=== PATIENT | female | born 1995 | race Caucasian/White ===

== ENCOUNTER 2016-10-21 07:08 | Emergency (ER) | payer OTHER ==
[2016-10-21 07:22] VITALS: PULSE 94; O2SAT 96
[2016-10-21] MEDS ORDERED: MOTRIN 600 MG PO ONE (07:36)
[2016-10-21] MEDS ORDERED: MOTRIN 600 MG ONE (07:39)
--- NOTE | 2016-10-21 07:41 | ERPHSYRPT ---
- History of Present Illness Time Seen by Provider: 10/21/16 07:25 Source: patient Patient Subjective Stated Complaint: lt neck pain since 0230 Triage Nursing Assessment: states woke up with lt neck pain radaiting down lt arm to fingers. states pain worse with movmeent of neck--worse with movement to rt. cap refill <3 sec. radial pulse present bilat. no bruising or swelling to lt neck or shoulder. pain with palpation to lt neck. denies injury. 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 She is not sure when or why it started. No specific inciting injury. Took APAP. Pain is worse with moving arm or neck or breathing. No hx of this in the past. Pain is severe. No chest pain. States not as she takes mirena IUD. Occurred: this morning (1AM) Extremities Pain Location: shoulder: left Allergies/Adverse Reactions: diphenhydramine HCl [From Benadryl] Adverse Reaction (Mild, Verified 10/21/16 07 :22) "I FEEL LIKE I AM ON CRACK" doxycycline Adverse Reaction (Mild, Verified 10/21/16 07:22) Nausea promethazine HCl [From Phenergan] Adverse Reaction (Mild, Verified 10/21/16 07: 22) "I FEEL LIKE I AM ON CRACK" Home Medications: No Home Meds 1 ea UD 10/21/16 [History] Hx Tetanus, Diphtheria Vaccination/Date Given: Yes Hx Influenza Vaccination/Date Given: No Hx Pneumococcal Vaccination/Date Given: No Immunizations Up to Date: Yes - Review of Systems Constitutional: No Symptoms Respiratory: No Dyspnea Cardiac: No Chest Pain Abdominal/Gastrointestinal: No Abdominal Pain Musculoskeletal: Joint Pain (left arm), No Back Pain, No Neck Pain Neurological: Parasthesia (left arm), No Focal Weakness, No Headache - Past Medical History Pertinent Past Medical History: Yes Neurological History: Migraines ENT History: No Pertinent History Cardiac History: No Pertinent History Respiratory History: No Pertinent History Endocrine Medical History: No Pertinent History Musculoskeletal History: No Pertinent History GI Medical History: No Pertinent History, Other History: No Pertinent History Psycho-Social History: Depression Female Reproductive Disorders: Endometriosis, Other Other Medical History: 1 (NO COMPLICATIONS). Endometriosis. PCO - Past Surgical History Past Surgical History: Yes Neuro Surgical History: No Pertinent History Cardiac: No Pertinent History Respiratory: No Pertinent History Gastrointestinal: No Pertinent History Genitourinary: No Pertinent History Musculoskeletal: No Pertinent History Female Surgical History: Other Other Surgical History: D&C, LAP-endomet - Social History Smoking Status: Current every day smoker How long have you smoked: 7 years Exposure to second hand smoke: No Drug Use: none Patient Lives Alone: No Significant Family History: no pertinent family hx - Female History Hx Now: Yes (Depo Provera) - Nursing Vital Signs Nursing Vital Signs: Initial Vital Signs Temperature 97.5 F Temperature Source Oral Pulse Rate 94 Respiratory Rate 18 Blood Pressure 103/63 Pain Intensity 7 - Physical Exam General Appearance: alert Eyes, Ears, Nose, Throat Exam: normal ENT inspection, moist mucous membranes Neck Exam: non-tender, supple, No tenderness midline Cardiovascular/Respiratory Exam: normal breath sounds, regular rate/rhythm Back Exam: normal inspection, No vertebral tenderness Shoulder Exam: bone tenderness, limited ROM, soft tissue tenderness Elbow/Forearm Exam: normal inspection, non-tender, no evidence of injury Wrist Exam: normal inspection, non-tender, no evidence of injury Hand Exam: normal inspection, non-tender, no evidence of injury Neuro/Tendon Exam: normal sensation, normal motor functions Mental Status Exam: alert, oriented x 3, cooperative Skin Exam: warm, dry, No rash SpO2 Interpretation: normal SpO2: 96 Oxygen Delivery: Room Air Comments: good left radial pulse - Radiology Exams left shoulder X-ray Interpretation: Reviewed by me, Negative Ordered Tests: Active Orders 24 hr Category Date Time Status Cold Application STAT Care 10/21/16 07:36 Active Sling Application STAT Care 10/21/16 07:36 Active SHOULDER Stat Exams 10/21/16 07:37 Taken Medication Summary Discontinued Medications Generic Name Dose Route Start Last Admin Trade Name Huseyinq PRN Reason Stop Dose Admin Ibuprofen 600 mg 10/21/16 07:36 10/21/16 07:40 Motrin 600 Mg PO 10/21/16 07:37 600 mg STAT ONE Administration Ibuprofen Confirm 10/21/16 07:39 Motrin 600 Mg Administered 10/21/16 07:40 Dose 600 mg .ROUTE .STK-MED ONE - Progress Progress Note: 10/21/16 08:20 Pt states not workers comp injury. She will follow up with Dr Gtz. Sldesiree, norbette, motrin advised. Counseled pt/family regarding: diagnosis, need for follow-up, rad results - Departure Time of Disposition: 08:21 Departure Disposition: Home Clinical Impression: Left shoulder strain Qualifiers: Encounter type: initial encounter Qualified Code(s): S46.912A - Strain of unspecified muscle, fascia and tendon at shoulder and upper arm level, left arm , initial encounter Condition: Stable Critical Care Time: No Referrals: KENYON GTZ [Primary Care Provider] - Instructions: Shoulder Sprain Additional Instructions: SPRAINS/STRAINS/CONTUSIONS 1. Rest the affected area as much as possible for the next few days. 2. Apply ice to the affected area for 20-30 minutes at a time, several times a day. 3. If you receive an elastic wrap, wear it only while awake for comfort and support. Re-wrap the elastic wrap if it feels too tight or too loose. 4. If swelling is present, elevate the affected part above the level of the heart for at least 2 to 3 days. 5. Use splints, slings, or crutches as instructed. 6. Watch for severe swelling, coldness, numbness, and discoloration of the fingers and toes. See your family physician or return to the emergency department if any of these are noted. Rx motrin for pain. Rx norflex for muscle relaxer- no driving while taking. Follow up with Dr Gtz. Precious for 1-2 days for comfort. Prescriptions: Ibuprofen 1 tab PO Q6H PRN PRN #20 tablet PRN Reason: pain Orphenadrine Citrate 100 mg [Norflex 100 MG Tablet] 1 tab PO BID #10 tab
[2016-10-21 08:32] VITALS: BP 109/67
--- NOTE | 2016-10-21 09:27 | XRAY ---
Indication: Pain following lifting. Comparison: None 3 views of the left shoulder obtained. No bony, articular, or soft tissue abnormalities.
== END 2016-10-21 08:30 | disposition home or self-care (01) ==
LOC: ED 07:08
DX: S46.912A Strain of unspecified muscle, fascia and tendon at shoulder and upper arm level, left arm, initial encounter (principal)
CPT/HCPCS: 73030; 99283

== ENCOUNTER 2017-01-21 15:17 | Emergency (ER) | payer OTHER ==
[2017-01-21] MEDS ORDERED: Vistaril 50 MG/ML IM ONE ×2 (15:20→15:40)
[2017-01-21] MEDS ORDERED: Lactated Ringers 1,000 ML IV ONE ×2 (15:21→15:40)
[2017-01-21] MEDS ORDERED: Zyprexa Zydis 5 MG PO ONE ×2 (15:22→15:40)
[2017-01-21 16:05] LABS: VBG BASE EXCESS 2.6 (-2.0-2.0); VBG HEMOGLOBIN 16.8; VBG O2 SATURATION 42.8 (95-100); VBG pH 7.5 (7.32-7.42)
[2017-01-21 16:06] LABS: VBG CARBOXYHEMOGLOBIN 7.1 % T HGB (0.0-6.9)
[2017-01-21 16:09] LABS: BASOPHIL % 0.2 % (0.0-0.4); Eosinophil % 2.1 % (0.00-5.0); Granulocytes % 69.6 % (36.0-66.0); Lymphocytes % 21.1 % (24.0-44.0); Mean Cell Volume 94.4 fl (78-100); Mean Platelet Volume 11.8 fl (6-9.5); Platelet Count 183 K/mm3 (150-450); Red Blood Count 5.21 M/mm3 (4.1-5.4); White Blood Count 10.5 K/mm3 (4.0-10.5)
[2017-01-21 16:16] LABS: Mean Corpuscular Hemoglobin 31.6 pg (26-32)
[2017-01-21 16:17] LABS: COMPLETE URINE MICROSCOPIC? NO; Collection Type CCMS
[2017-01-21 16:31] LABS: ALBUMIN 3.6 g/dL (3.4-5.0); ALKALINE PHOSPHATASE 88 U/L (46-116); ANION GAP 15.4 MEQ/L (5-15); BILIRUBIN,TOTAL 0.5 mg/dL (0.2-1.0); BLOOD UREA NITROGEN 11 mg/dL (9-20); CHLORIDE 107 mEq/L (98-107); Carbon Dioxide 24.8 mEq/L (21-32); Glucose 117 MG/DL (70-110); Potassium 3.8 mEq/L (3.5-5.1); SGOT/AST 13 U/L (15-37); SGPT/ALT 13 U/L (12-78); SODIUM 143 mEq/L (136-145); Total Protein 6.4 gm/dL (6.4-8.2)
[2017-01-21 16:57] VITALS: BP 117/50; PULSE 74
[2017-01-21 17:02] VITALS: O2SAT 100
--- NOTE | 2017-01-21 17:02 | ERPHSYRPT ---
- History of Present Illness Time Seen by Provider: 01/21/17 15:20 Source: patient Patient Subjective Stated Complaint: PT GAVE PLASMA ABOUT AND HOUR AGO AND NOW CO PAIN AND SPASMS TO BOTH HANDS, VOMITED ON CAR RIDE HERE .PT STATES IS SUDDEN ONSET Triage Nursing Assessment: PT ALERT, HYPERVENTILATING,, ENCOURAGED TO SLOW DEEP BREATHES, SKIN W/D PINK, PTS HANDS HAS SPASMS. Physician History: CC: hands and feet spasms HX: 21 y/[address] patient of Dr Gtz donated plasma today, went to [place] for tongue piercing, and on the way home had spasms of the hands and feet. [place] scared. Unable to slow breathing. No headache. No rash. No vomiting. Came to ER. No hx of this in the past. Smoked marijuana this AM. Takes pristiq. No chest pain. Timing/Duration: today Severity: severe Allergies/Adverse Reactions: diphenhydramine HCl [From Benadryl] Adverse Reaction (Mild, Verified 01/21/17 15 :25) "I FEEL LIKE I AM ON CRACK" doxycycline Adverse Reaction (Mild, Verified 01/21/17 15:25) Nausea promethazine HCl [From Phenergan] Adverse Reaction (Mild, Verified 01/21/17 15: 25) "I FEEL LIKE I AM ON CRACK" Home Medications: Desvenlafaxine Succinate [Pristiq] 50 mg DAILY 01/21/17 [History] Hx Tetanus, Diphtheria Vaccination/Date Given: Yes Hx Influenza Vaccination/Date Given: No Hx Pneumococcal Vaccination/Date Given: No Immunizations Up to Date: Yes - Review of Systems Constitutional: No Fever, No Chills Eyes: No Symptoms Ears, Nose, & Throat: No Symptoms Respiratory: No Cough Cardiac: No Chest Pain Abdominal/Gastrointestinal: No Abdominal Pain, No Nausea, No Vomiting, No Diarrhea Skin: No Rash Neurological: Parasthesia (both hands and feet), No Focal Weakness, No Headache All Other Systems: Reviewed and Negative - Past Medical History Pertinent Past Medical History: Yes Neurological History: Migraines ENT History: No Pertinent History Cardiac History: No Pertinent History Respiratory History: No Pertinent History Endocrine Medical History: No Pertinent History Musculoskeletal History: No Pertinent History GI Medical History: No Pertinent History, Other History: No Pertinent History Psycho-Social History: Depression Female Reproductive Disorders: Endometriosis, Other Other Medical History: 1 (NO COMPLICATIONS). Endometriosis. PCO - Past Surgical History Past Surgical History: Yes Neuro Surgical History: No Pertinent History Cardiac: No Pertinent History Respiratory: No Pertinent History Gastrointestinal: No Pertinent History Genitourinary: No Pertinent History Musculoskeletal: No Pertinent History Female Surgical History: Other Other Surgical History: D&C, LAP-endomet - Social History Smoking Status: Current every day smoker How long have you smoked: 7 years Exposure to second hand smoke: Yes Drug Use: none Patient Lives Alone: No Significant Family History: no pertinent family hx - Female History Hx Last Menstrual Period: UNKNOWN Hx Now: Yes (Depo Provera) - Nursing Vital Signs Nursing Vital Signs: Initial Vital Signs Temperature 97 F Temperature Source Oral Pulse Rate 67 Respiratory Rate 18 Blood Pressure [Right Arm] 118/77 Pain Intensity 2 - Physical Exam General Appearance: alert Eye Exam: PERRL/EOMI Ears, Nose, Throat Exam: normal ENT inspection, moist mucous membranes Neck Exam: normal inspection, non-tender, supple Respiratory Exam: normal breath sounds, lungs clear, other (hyperventilating) Cardiovascular Exam: regular rate/rhythm, tachycardia (initially) Gastrointestinal/Abdomen Exam: soft, No tenderness, No distention Extremity Exam: normal inspection, normal range of motion Neurologic Exam: alert, oriented x 3, cooperative, sensation nml, No motor deficits Skin Exam: warm, dry SpO2 Interpretation: normal SpO2: 100 Oxygen Delivery: Room Air - Course Nursing assessment & vital signs reviewed: Yes EKG Interpreted by Me: RATE (53), Sinus Terry, NORMAL AXIS, NORMAL INTERVALS ( QTc 391), NORMAL QRS, NORMAL ST-T, Other (unchanged from prior) Ordered Tests: Active Orders 24 hr Category Date Time Status EKG-ER Only STAT Care 01/21/17 15:20 Active IV Insertion STAT Care 01/21/17 15:20 Active Pulse Oximetry (ED) STAT Care 01/21/17 15:20 Active CBC W DIFF Stat Lab 01/21/17 16:00 Completed CMP Stat Lab 01/21/17 16:00 Completed HCG QUALITATIVE,SERUM Stat Lab 01/21/17 16:00 Completed UA Stat Lab 01/21/17 16:15 Completed Urine Triage Profile Stat Lab 01/21/17 15:21 Completed VENOUS BLOOD GAS Urgent Lab 01/21/17 16:00 Completed Medication Summary Discontinued Medications Generic Name Dose Route Start Last Admin Trade Name Freq PRN Reason Stop Dose Admin Hydroxyzine HCl 50 mg 01/21/17 15:20 01/21/17 15:49 Vistaril 50 Mg/Ml IM 01/21/17 15:21 50 mg STAT ONE Administration Hydroxyzine HCl Confirm 01/21/17 15:40 Vistaril 50 Mg/Ml Administered 01/21/17 15:41 Dose 50 mg IM .STK-MED ONE Lactated Ringer's 1,000 mls @ 999 mls/hr 01/21/17 15:21 01/21/17 15:41 Lactated Ringers IV 01/21/17 16:21 999 mls/hr .Q1H1M ONE Administration Lactated Ringer's Confirm 01/21/17 15:40 Lactated Ringers Administered 01/21/17 15:41 Dose 1,000 mls @ ud IV .STK-MED ONE Olanzapine 5 mg 01/21/17 15:22 01/21/17 15:41 Zyprexa Zydis 5 Mg PO 01/21/17 15:23 5 mg STAT ONE Administration Olanzapine Confirm 01/21/17 15:40 Zyprexa Zydis 5 Mg Administered 01/21/17 15:41 Dose 5 mg PO .STK-MED ONE Lab/Rad Data: Laboratory Result Diagrams 01/21/17 16:00 01/21/17 16:00 Laboratory Results 01/21/17 01/21/17 01/21/17 Range/Units 16:15 16:00 16:00 WBC (4.0-10.5) K/mm3 RBC (4.1-5.4) M/mm3 Hgb (12.0-16.0) gm/dl Hct (35-47) % MCV (78-100) fl MCH (26-32) pg MCHC (32-36) g/dl RDW (11.5-14.0) % Plt Count (150-450) K/mm3 MPV (6-9.5) fl Gran % (36.0-66.0) % Lymphocytes % (24.0-44.0) % Monocytes % (0.0-12.0) % Eosinophils % (0.00-5.0) % Basophils % (0.0-0.4) % Basophils # (0-0.4) VBG pH 7.50 H (7.32-7.42) VBG pCO2 at Pat Temp 32 L (42-55) mm/Hg VBG pO2 at Pat Temp 19 L (25-40) mm/Hg VBG HCO3 25.0 (22-28) meq/L VBG O2 Sat ([place]annah) 42.8 L (95-100) VBG Base Excess 2.6 H (-2.0-2.0) VBG Hemoglobin 16.8 VBG Carboxyhemoglobin 7.1 H* (0.0-6.9) % T HGB POC Potassium 4.0 (3.5-5.1) Sodium (136-145) mEq/L Potassium (3.5-5.1) mEq/L Chloride (98-107) mEq/L Carbon Dioxide (21-32) mEq/L Anion Gap (5-15) MEQ/L BUN (9-20) mg/dL Creatinine (0.55-1.30) mg/dl Estimated GFR ML/MIN Glucose (70-110) MG/DL Calcium (8.5-10.1) mg/dL Total Bilirubin (0.2-1.0) mg/dL AST (15-37) U/L ALT (12-78) U/L Alkaline Phosphatase (46-116) U/L Serum Total Protein (6.4-8.2) gm/dL Albumin (3.4-5.0) g/dL Serum , Qual NEGATIVE (Negative) Ur Collection Type CCMS Urine Color YELLOW (YELLOW) Urine Appearance CLEAR (CLEAR) Urine pH 7.0 (5-6) Ur Specific [place] 1.020 (1.005-1.025) Urine Protein NEGATIVE (Negative) Urine Glucose (UA) NEGATIVE (NEGATIVE) mg/dL Urine Ketones NEGATIVE (NEGATIVE) Urine Nitrite NEGATIVE (NEGATIVE) Urine Bilirubin NEGATIVE (NEGATIVE) Urine Urobilinogen 0.2 (0-1) mg/dL Urine WBC (Auto) NEGATIVE (NEGATIVE) Urine RBC (Auto) NEGATIVE (0-5) Sen/ul Urine Opiates Level (NEGATIVE) Ur Methadone (NEGATIVE) Urine Barbiturates (NEGATIVE) Ur Phencyclidine (PCP) (NEGATIVE) Urine Amphetamine (NEGATIVE) U Benzodiazepine Level (NEGATIVE) Urine Cocaine (NEGATIVE) Urine Marijuana (THC) (NEGATIVE) Specimen Received 01-21-17 [id number] 01/21/17 01/21/17 01/21/17 Range/Units 16:00 16:00 15:21 WBC 10.5 (4.0-10.5) K/mm3 RBC 5.21 (4.1-5.4) M/mm3 Hgb 16.5 H (12.0-16.0) gm/dl Hct 49.2 H (35-47) % MCV 94.4 (78-100) fl MCH 31.6 (26-32) pg MCHC 33.5 (32-36) g/dl RDW 13.0 (11.5-14.0) % Plt Count 183 (150-450) K/mm3 MPV 11.8 H (6-9.5) fl Gran % 69.6 H (36.0-66.0) % Lymphocytes % 21.1 L (24.0-44.0) % Monocytes % 7.0 (0.0-12.0) % Eosinophils % 2.1 (0.00-5.0) % Basophils % 0.2 (0.0-0.4) % Basophils # 0.02 (0-0.4) VBG pH (7.32-7.42) VBG pCO2 at Pat Temp (42-55) mm/Hg VBG pO2 at Pat Temp (25-40) mm/Hg VBG HCO3 (22-28) meq/L VBG O2 Sat ([place]annah) (95-100) VBG Base Excess (-2.0-2.0) VBG Hemoglobin VBG Carboxyhemoglobin (0.0-6.9) % T HGB POC Potassium (3.5-5.1) Sodium 143 (136-145) mEq/L Potassium 3.8 (3.5-5.1) mEq/L Chloride 107 (98-107) mEq/L Carbon Dioxide 24.8 (21-32) mEq/L Anion Gap 15.4 H (5-15) MEQ/L BUN 11 (9-20) mg/dL Creatinine 0.94 (0.55-1.30) mg/dl Estimated GFR > 60 ML/MIN Glucose 117 H (70-110) MG/DL Calcium 9.1 (8.5-10.1) mg/dL Total Bilirubin 0.5 (0.2-1.0) mg/dL AST 13 L (15-37) U/L ALT 13 (12-78) U/L Alkaline Phosphatase 88 (46-116) U/L Serum Total Protein 6.4 (6.4-8.2) gm/dL Albumin 3.6 (3.4-5.0) g/dL Serum , Qual (Negative) Ur Collection Type Urine Color (YELLOW) Urine Appearance (CLEAR) Urine pH (5-6) Ur Specific [place] (1.005-1.025) Urine Protein (Negative) Urine Glucose (UA) (NEGATIVE) mg/dL Urine Ketones (NEGATIVE) Urine Nitrite (NEGATIVE) Urine Bilirubin (NEGATIVE) Urine Urobilinogen (0-1) mg/dL Urine WBC (Auto) (NEGATIVE) Urine RBC (Auto) (0-5) Sen/ul Urine Opiates Level NEG. (NEGATIVE) Ur Methadone NEG. (NEGATIVE) Urine Barbiturates NEG. (NEGATIVE) Ur Phencyclidine (PCP) NEG. (NEGATIVE) Urine Amphetamine NEG. (NEGATIVE) U Benzodiazepine Level NEG. (NEGATIVE) Urine Cocaine NEG. (NEGATIVE) Urine Marijuana (THC) POS. (NEGATIVE) Specimen Received - Progress Progress Note: 01/21/17 17:00 She was coached on hypervention on arrival. SL zydis given. Labs reviewed. IVF bolus given. She is drinking fluids. She feels completely better. Advised against drug use. Will release with instructions. Counseled pt/family regarding: lab results, diagnosis, need for follow-up - Departure Time of Disposition: 17:01 Departure Disposition: Home Clinical Impression: Hyperventilation syndrome Condition: Stable Critical Care Time: No Referrals: KENYON GTZ [Primary Care Provider] - Instructions: Hyperventilation Additional Instructions: No driving today and stay with family. Avoid drug use. Drink plenty of fluids. Follow up this week with Dr Gtz.
== END 2017-01-21 17:30 | disposition home or self-care (01) ==
LOC: ED 15:17
DX: F45.8 Other somatoform disorders (principal)
CPT/HCPCS: 36000; 36415; 80053; 80307; 81002; 82805; 84703; 85025; 93005; 96360; 96372; 99284; 99285; J3410; A9270-GY

== ENCOUNTER 2017-03-26 21:53 | Emergency (ER) | payer OTHER ==
[2017-03-26] MEDS ORDERED: DELTASONE 20 MG PO ONE (22:33)
--- NOTE | 2017-03-26 22:39 | ERPHSYRPT ---
- History of Present Illness Time Seen by Provider: 03/26/17 22:30 Source: patient Patient Subjective Stated Complaint: pt states she has had a rash for 2-3 days. states it has spredd since it started. pt states she also has been having some discharge when she urinates and wipes. denies pain or burning with urination but states there is an odor. Triage Nursing Assessment: pt alert and oriented, answers questions approp. pt ambulatory with steady gait noted. respirattions nonlabored with lungs cta. rash with scabbing noted to bilat arm and legs. small flat red areas. Physician History: PATIENT COMPLAINS OF RASH OVER LEGS X 2 DAYS ASSOCIATED WITH ITCHING. UNSURE OF EXPOSURE TO INSECTS OR OTHER ALLERGENS. DENIES DIFFICULTY BREATHING OR SWALLOWING. Timing/Duration: yesterday Quality: itchy Severity: moderate Location: extremities Possible Causes: no cause identified Modifying Factors: Improves With: scratching Associated Symptoms: change in skin texture Allergies/Adverse Reactions: diphenhydramine HCl [From Benadryl] Adverse Reaction (Mild, Verified 03/26/17 22 :11) "I FEEL LIKE I AM ON CRACK" doxycycline Adverse Reaction (Mild, Verified 03/26/17 22:11) Nausea promethazine HCl [From Phenergan] Adverse Reaction (Mild, Verified 03/26/17 22: 11) "I FEEL LIKE I AM ON CRACK" Home Medications: Desvenlafaxine Succinate [Pristiq] 50 mg DAILY 01/21/17 [History] Hx Tetanus, Diphtheria Vaccination/Date Given: Yes Hx Influenza Vaccination/Date Given: No Hx Pneumococcal Vaccination/Date Given: No Immunizations Up to Date: Yes - Review of Systems Constitutional: No Fever, No Chills Eyes: No Symptoms Ears, Nose, & Throat: No Symptoms Respiratory: No Symptoms, No Cough, No Dyspnea Cardiac: No Chest Pain, No Edema, No Syncope Abdominal/Gastrointestinal: No Abdominal Pain, No Nausea, No Vomiting, No Diarrhea Genitourinary Symptoms: No Dysuria Musculoskeletal: No Back Pain, No Neck Pain Skin: No Rash (VESICULAR LESIONS PATCHY RAISED AREAS) Neurological: No Dizziness, No Focal Weakness, No Sensory Changes Psychological: No Symptoms Endocrine: No Symptoms All Other Systems: Reviewed and Negative - Past Medical History Pertinent Past Medical History: Yes Neurological History: Migraines ENT History: No Pertinent History Cardiac History: No Pertinent History Respiratory History: No Pertinent History Endocrine Medical History: No Pertinent History Musculoskeletal History: No Pertinent History GI Medical History: No Pertinent History, Other History: No Pertinent History Psycho-Social History: Depression Female Reproductive Disorders: Endometriosis, Other Other Medical History: 1 (NO COMPLICATIONS). Endometriosis. PCOS - Past Surgical History Past Surgical History: Yes Neuro Surgical History: No Pertinent History Cardiac: No Pertinent History Respiratory: No Pertinent History Gastrointestinal: No Pertinent History Genitourinary: No Pertinent History Musculoskeletal: No Pertinent History Female Surgical History: Other Other Surgical History: D&C, LAP-endomet - Social History Smoking Status: Current every day smoker How long have you smoked: 7 years Exposure to second hand smoke: Yes Drug Use: none Patient Lives Alone: No Significant Family History: no pertinent family hx - Female History Hx Last Menstrual Period: 4 weeks Hx Now: Yes (Depo Provera) - Nursing Vital Signs Nursing Vital Signs: Initial Vital Signs Temperature 98.8 F Temperature Source Oral Pulse Rate 80 Respiratory Rate 16 Blood Pressure [Right Arm] 126/85 Pain Intensity 0 - Physical Exam General Appearance: no apparent distress, alert Eye Exam: PERRL/EOMI, eyes nml inspection Ears, Nose, Throat Exam: normal ENT inspection, pharynx normal, moist mucous membranes Neck Exam: normal inspection, non-tender, supple, full range of motion Respiratory Exam: normal breath sounds, lungs clear, No respiratory distress Cardiovascular Exam: regular rate/rhythm, normal heart sounds Gastrointestinal/Abdomen Exam: soft, mass, No tenderness Back Exam: normal inspection, normal range of motion, No CVA tenderness, No vertebral tenderness Extremity Exam: normal inspection, normal range of motion Neurologic Exam: alert, oriented x 3, cooperative, normal mood/affect, sensation nml, No motor deficits Skin Exam: normal color, warm, dry, other (VESICULAR PATCY LESIONS OVER LOWER EXTREMITIES) SpO2: 98 Oxygen Delivery: Room Air Ordered Tests: Medication Summary Discontinued Medications Generic Name Dose Route Start Last Admin Trade Name Huseyinq PRN Reason Stop Dose Admin Prednisone 60 mg 03/26/17 22:33 03/26/17 22:47 Deltasone 20 Mg PO 03/26/17 22:34 60 mg STAT ONE Administration Prednisone Confirm 03/26/17 22:46 Deltasone 20 Mg Administered 03/26/17 22:47 Dose 60 mg .ROUTE .STK-MED ONE - Progress Progress Note: 03/26/17 22:58 PATIENT GIVEN PREDNISONE 60MG IM Counseled pt/family regarding: diagnosis, need for follow-up - Departure Time of Disposition: 23:10 Departure Disposition: Home Clinical Impression: CONTACT DERMATITIS Condition: Stable Critical Care Time: No Referrals: KENYON HANSON [Primary Care Provider] - Additional Instructions: ATARAX 25MG EVERY 4 HOURS NEEDED FOR ITCHING. PREDNISONE 20MG. 2 TABLETS DAILY FOR 5 DAYS. FOLLOWUP WITH YOUR FAMILY PHYSICIAN IN 1 WEEK. Prescriptions: Hydroxyzine HCl 25 mg [Atarax 25 mg] 25 mg PO Q4H PRN PRN #20 tablet PRN Reason: Itching Prednisone 20 mg [Deltasone 20 mg] 2 tab PO DAILY #10 tablet
[2017-03-26] MEDS ORDERED: DELTASONE 20 MG ONE (22:46)
[2017-03-26 22:49] VITALS: BP 126/85; PULSE 80
[2017-03-26 23:04] VITALS: O2SAT 98
[2017-03-26] MEDS ORDERED: ATARAX 25 MG PO ONE (23:05)
== END 2017-03-26 23:27 | disposition home or self-care (01) ==
LOC: ED 21:53
DX: L25.9 Unspecified contact dermatitis, unspecified cause (principal)
CPT/HCPCS: 99283; J7506

== ENCOUNTER 2017-04-12 09:36 | Emergency (ER) | payer OTHER ==
--- NOTE | 2017-04-12 09:56 | ERPHSYRPT ---
- History of Present Illness Time Seen by Provider: 04/12/17 09:50 Historian: patient Exam Limitations: no limitations Patient Subjective Stated Complaint: PT REPORTS LOW ABD CRAMPING RADIATING TO HER OVARIES-STATES IT BEGAN A FEW DAYS AGO-DENIES FEVER-DENIES VAGINAL DISCHARGE -PERIOD ENDED LAST WEEK Triage Nursing Assessment: PT PINK WARM ET [id number] NONTENDNER TO PALP- DENIES DIFFICULTY WITH URIANTION OR BRAD- Physician History: The patient is a 21-year-old female complains of low abdominal cramping since yesterday. She took one Tylenol and one ibuprofen without relief. Her last bowel movement was this morning. Her last menstrual period was a week ago. Her menstrual periods have been irregular. Her past medical history significant for D&C. Timing/Duration: yesterday Activities at Onset: none Quality: cramping Abdominal Pain Onset Location: RLQ, LLQ, suprapubic Pain Radiation: no radiation Severity of Pain-Max: moderate Severity of Pain-Current: moderate Modifying Factors: Improves With: analgesics Associated Symptoms: denies symptoms Previous symptoms: no prior history Allergies/Adverse Reactions: diphenhydramine HCl [From Benadryl] Adverse Reaction (Mild, Verified 04/12/17 09 :44) "I FEEL LIKE I AM ON CRACK" doxycycline Adverse Reaction (Mild, Verified 04/12/17 09:44) Nausea promethazine HCl [From Phenergan] Adverse Reaction (Mild, Verified 04/12/17 09: 44) "I FEEL LIKE I AM ON CRACK" Home Medications: No Home Meds 1 [facility] UD 04/12/17 [History] Hx Tetanus, Diphtheria Vaccination/Date Given: Yes Hx Influenza Vaccination/Date Given: No Hx Pneumococcal Vaccination/Date Given: No Immunizations Up to Date: Yes - Review of Systems Constitutional: No Fever, No Chills Eyes: No Symptoms Ears, Nose, & Throat: No Symptoms Respiratory: No Cough, No Dyspnea Cardiac: No Chest Pain, No Edema, No Syncope Abdominal/Gastrointestinal: Abdominal Pain Genitourinary Symptoms: No Vaginal Bleeding, No Vaginal Discharge Musculoskeletal: No Back Pain, No Neck Pain Skin: No Rash Neurological: No Dizziness, No Focal Weakness, No Sensory Changes Psychological: No Symptoms Endocrine: No Symptoms Hematologic/Lymphatic: No Symptoms Immunological/Allergic: No Symptoms All Other Systems: Reviewed and Negative - Past Medical History Pertinent Past Medical History: Yes Neurological History: Migraines ENT History: No Pertinent History Cardiac History: No Pertinent History Respiratory History: No Pertinent History Endocrine Medical History: No Pertinent History Musculoskeletal History: No Pertinent History GI Medical History: No Pertinent History, Other History: No Pertinent History Psycho-Social History: Depression Female Reproductive Disorders: Endometriosis, Other Other Medical History: 1 (NO COMPLICATIONS). Endometriosis. PCOS - Past Surgical History Past Surgical History: Yes Neuro Surgical History: No Pertinent History Cardiac: No Pertinent History Respiratory: No Pertinent History Gastrointestinal: No Pertinent History Genitourinary: No Pertinent History Musculoskeletal: No Pertinent History Female Surgical History: Other Other Surgical History: D&C, LAP-endomet - Social History Smoking Status: Current every day smoker How long have you smoked: 7 years Exposure to second hand smoke: Yes Drug Use: none Patient Lives Alone: No Significant Family History: no pertinent family hx - Female History Hx Last Menstrual Period: LAST WK Hx Now: Yes (Depo Provera) - Nursing Vital Signs Nursing Vital Signs: Initial Vital Signs Temperature 98.0 F Temperature Source Oral Pulse Rate 89 Respiratory Rate 18 Blood Pressure [Right Arm] 118/68 Pain Intensity 7 - Physical Exam General Appearance: no apparent distress, alert Eye Exam: PERRL/EOMI, eyes nml inspection Ears, Nose, Throat Exam: normal ENT inspection, pharynx normal, moist mucous membranes Neck Exam: normal inspection, non-tender, supple, full range of motion Respiratory Exam: normal breath sounds, lungs clear, No respiratory distress Cardiovascular Exam: regular rate/rhythm, normal heart sounds Gastrointestinal/Abdomen Exam: soft, No tenderness, No mass Pelvic Exam: not done Rectal Exam: not done Back Exam: normal inspection, normal range of motion, No CVA tenderness, No vertebral tenderness Extremity Exam: normal inspection, normal range of motion, pelvis stable Neurologic Exam: alert, oriented x 3, cooperative, normal mood/affect, nml cerebellar function, sensation nml, No motor deficits Skin Exam: normal color, warm, dry SpO2 Interpretation: normal SpO2: 96 Oxygen Delivery: Room Air Ordered Tests: Active Orders 24 hr Category Date Time Status CBC W DIFF Stat Lab 04/12/17 10:10 Completed CMP Stat Lab 04/12/17 10:10 Completed CULTURE,URINE Stat Lab 04/12/17 10:00 Received HCG QUALITATIVE,SERUM Stat Lab 07/07/17 10:10 Completed UA W/ MICROSCOPIC Stat Lab 04/12/17 10:00 Completed Urine Triage Profile Stat Lab 04/12/17 10:00 Completed Lab/Rad Data: Laboratory Result Diagrams 04/12/17 10:10 04/12/17 10:10 Laboratory Results 04/12/17 04/12/17 04/12/17 Range/Units 10:10 10:10 10:10 WBC 7.7 (4.0-10.5) K/mm3 RBC 4.93 (4.1-5.4) M/mm3 Hgb 15.5 (12.0-16.0) gm/dl Hct 46.2 (35-47) % MCV 93.7 (78-100) fl MCH 31.4 (26-32) pg MCHC 33.5 (32-36) g/dl RDW 13.0 (11.5-14.0) % Plt Count 173 (150-450) K/mm3 MPV 11.4 H (6-9.5) fl Gran % 65.7 (36.0-66.0) % Lymphocytes % 24.2 (24.0-44.0) % Monocytes % 8.1 (0.0-12.0) % Eosinophils % 1.7 (0.00-5.0) % Basophils % 0.3 (0.0-0.4) % Basophils # 0.02 (0-0.4) Sodium 141 (136-145) mEq/L Potassium 4.3 (3.5-5.1) mEq/L Chloride 106 (98-107) mEq/L Carbon Dioxide 25.6 (21-32) mEq/L Anion Gap 13.8 (5-15) MEQ/L BUN 12 (9-20) mg/dL Creatinine 0.72 (0.55-1.30) mg/dl Estimated GFR > 60 ML/MIN Glucose 87 (70-110) MG/DL Calcium 9.1 (8.5-10.1) mg/dL Total Bilirubin 0.50 (0.2-1.0) mg/dL AST 20 (15-37) U/L ALT 21 (12-78) U/L Alkaline Phosphatase 69 (46-116) U/L Serum Total Protein 6.2 L (6.4-8.2) gm/dL Albumin 3.5 (3.4-5.0) g/dL Serum , Qual NEGATIVE (Negative) Ur Collection Type Urine Color (YELLOW) Urine Appearance (CLEAR) Urine pH (5-6) Ur Specific [place] (1.005-1.025) Urine Protein (Negative) Urine Ketones (NEGATIVE) Urine Blood (0-5) Sen/ul Urine Nitrite (NEGATIVE) Urine Bilirubin (NEGATIVE) Urine Urobilinogen (0-1) mg/dL Ur Leukocyte Esterase (NEGATIVE) Urine Microscopic RBC (0-2) /HPF Urine Microscopic WBC (0-5) /HPF Ur Epithelial Cells (FEW) /HPF Urine Bacteria (NEGATIVE) /HPF Urine Mucus (NEGATIVE) /HPF Urine Glucose (NEGATIVE) mg/dL Urine Opiates Level (NEGATIVE) Ur Methadone (NEGATIVE) Urine Barbiturates (NEGATIVE) Ur Phencyclidine (PCP) (NEGATIVE) Urine Amphetamine (NEGATIVE) U Benzodiazepine Level (NEGATIVE) Urine Cocaine (NEGATIVE) Urine Marijuana (THC) (NEGATIVE) Specimen Received 04/12/17 04/12/17 Range/Units 10:00 10:00 WBC (4.0-10.5) K/mm3 RBC (4.1-5.4) M/mm3 Hgb (12.0-16.0) gm/dl Hct (35-47) % MCV (78-100) fl MCH (26-32) pg MCHC (32-36) g/dl RDW (11.5-14.0) % Plt Count (150-450) K/mm3 MPV (6-9.5) fl Gran % (36.0-66.0) % Lymphocytes % (24.0-44.0) % Monocytes % (0.0-12.0) % Eosinophils % (0.00-5.0) % Basophils % (0.0-0.4) % Basophils # (0-0.4) Sodium (136-145) mEq/L Potassium (3.5-5.1) mEq/L Chloride (98-107) mEq/L Carbon Dioxide (21-32) mEq/L Anion Gap (5-15) MEQ/L BUN (9-20) mg/dL Creatinine (0.55-1.30) mg/dl Estimated GFR ML/MIN Glucose (70-110) MG/DL Calcium (8.5-10.1) mg/dL Total Bilirubin (0.2-1.0) mg/dL AST (15-37) U/L ALT (12-78) U/L Alkaline Phosphatase (46-116) U/L Serum Total Protein (6.4-8.2) gm/dL Albumin (3.4-5.0) g/dL Serum , Qual (Negative) Ur Collection Type CLEAN CATCH Urine Color DARK YELLOW (YELLOW) Urine Appearance SLIGHTLY CLOUDY (CLEAR) Urine pH 5.0 (5-6) Ur Specific [place] 1.025 (1.005-1.025) Urine Protein NEGATIVE (Negative) Urine Ketones TRACE (NEGATIVE) Urine Blood NEGATIVE (0-5) Sen/ul Urine Nitrite NEGATIVE (NEGATIVE) Urine Bilirubin SMALL (NEGATIVE) Urine Urobilinogen 1 (0-1) mg/dL Ur Leukocyte Esterase 1+ (NEGATIVE) Urine Microscopic RBC 0-2 (0-2) /HPF Urine Microscopic WBC 5-10 (0-5) /HPF Ur Epithelial Cells MANY (FEW) /HPF Urine Bacteria MODERATE (NEGATIVE) /HPF Urine Mucus MANY (NEGATIVE) /HPF Urine Glucose NEGATIVE (NEGATIVE) mg/dL Urine Opiates Level NEG. (NEGATIVE) Ur Methadone NEG. (NEGATIVE) Urine Barbiturates NEG. (NEGATIVE) Ur Phencyclidine (PCP) NEG. (NEGATIVE) Urine Amphetamine NEG. (NEGATIVE) U Benzodiazepine Level NEG. (NEGATIVE) Urine Cocaine NEG. (NEGATIVE) Urine Marijuana (THC) POS. (NEGATIVE) Specimen Received 04/12/17 1000 - Progress Progress: unchanged Counseled pt/family regarding: lab results, diagnosis, need for follow-up - Departure Time of Disposition: 10:52 Departure Disposition: Home Clinical Impression: UTI (urinary tract infection) Condition: Stable Critical Care Time: No Additional Instructions: You have low abdominal pain that is caused by a UTI. You were given Toradol 60 mg IM in the ER. Take Bactrim 1 tablet twice a day for 3 days. Take Tylenol 1000 mg every 8 hours and ibuprofen 800 mg every 8 hours as needed. Follow-up on Saturday. Prescriptions: Smz/Tmp Ds Tablet [Bactrim Ds Tablet] 1 udtab PO BID #6 tablet
[2017-04-12 10:29] LABS: Collection Type CLEAN CATCH
[2017-04-12 10:29] LABS: BASOPHIL % 0.3 % (0.0-0.4); Eosinophil % 1.7 % (0.00-5.0); Granulocytes % 65.7 % (36.0-66.0); Lymphocytes % 24.2 % (24.0-44.0); Mean Cell Volume 93.7 fl (78-100); Mean Corpuscular Hemoglobin 31.4 pg (26-32); Mean Platelet Volume 11.4 fl (6-9.5); Monocytes % 8.1 % (0.0-12.0); Platelet Count 173 K/mm3 (150-450); Red Blood Count 4.93 M/mm3 (4.1-5.4); White Blood Count 7.7 K/mm3 (4.0-10.5)
[2017-04-12 10:30] LABS: Bilirubin SMALL (NEGATIVE); Blood NEGATIVE Ery/ul (0-5); COMPLETE URINE MICROSCOPIC? YES; Glucose NEGATIVE (NEGATIVE); Leukocyte Esterase 1+ (NEGATIVE)
[2017-04-12 10:36] LABS: Bacteria MODERATE /HPF (NEGATIVE); Epithelial Cells MANY /HPF (FEW); Mucus MANY /HPF (NEGATIVE)
[2017-04-12 10:37] LABS: ALBUMIN 3.5 g/dL (3.4-5.0); ALKALINE PHOSPHATASE 69 U/L (46-116); ANION GAP 13.8 MEQ/L (5-15); BLOOD UREA NITROGEN 12 mg/dL (9-20); CHLORIDE 106 mEq/L (98-107); Carbon Dioxide 25.6 mEq/L (21-32); Glucose 87 MG/DL (70-110); Potassium 4.3 mEq/L (3.5-5.1); SGOT/AST 20 U/L (15-37); SGPT/ALT 21 U/L (12-78); SODIUM 141 mEq/L (136-145); Total Protein 6.2 gm/dL (6.4-8.2)
[2017-04-12 10:37] LABS: ADD URINE CULTURE? YES (NO)
[2017-04-12] MEDS ORDERED: TORAdol 30 mg Injection IM ONE (10:51)
[2017-04-12] MEDS ORDERED: TORAdol 30 mg Injection ONE (11:00)
[2017-04-12 11:24] VITALS: BP 120/62; PULSE 77; O2SAT 98
== END 2017-04-12 11:23 | disposition home or self-care (01) ==
LOC: ED 09:36
DX: N39.0 Urinary tract infection, site not specified (principal); R10.9 Unspecified abdominal pain
CPT/HCPCS: 36415; 80053; 80307; 81000; 84703; 85025; 87086; 96372; 99284; J1885

== ENCOUNTER 2017-10-28 15:57 | Emergency (ER) | payer OTHER ==
[2017-10-28] MEDS ORDERED: TORAdol 30 mg Injection IV ONE (16:15)
[2017-10-28] MEDS ORDERED: Lactated Ringers 1,000 ML IV ONE ×2 (16:15→16:51)
[2017-10-28 16:16] VITALS: O2SAT 97
[2017-10-28 16:34] LABS: BASOPHIL % 0.2 % (0.0-0.4); Basophil (Absolute #) 0.01 (0-0.4); Eosinophil % 3.4 % (0.00-5.0); Eosinophil (Absolute #) 0.22 (0-0.5); Granulocyte Absolute (ANC) 4.27 (1.4-6.9); Granulocytes % 66.7 % (36.0-66.0); Hemoglobin 12.9 gm/dl (12.0-16.0); Lymphocytes % 21.9 % (24.0-44.0); Mean Cell Volume 94.1 fl (78-100); Mean Corpuscular Hemoglobin 30.4 pg (26-32); Mean Corpuscular Hgb Concent. 32.3 g/dl (32-36); Mean Platelet Volume 11.3 fl (6-9.5); Monocytes % 7.8 % (0.0-12.0); Platelet Count 177 K/mm3 (150-450); Red Blood Count 4.25 M/mm3 (4.1-5.4); Red Cell Distribution Width 12.5 % (11.5-14.0); White Blood Count 6.4 K/mm3 (4.0-10.5)
--- NOTE | 2017-10-28 16:49 | ERPHSYRPT ---
- History of Present Illness Time Seen by Provider: 10/28/17 16:09 Source: patient Patient Subjective Stated Complaint: Started period today, reports worse than normal. Recently switched from Mirena IUD to patches. Pt reports she has been out of patches. She reports has not had a period in awhile, unsure when her LMP was. Reports saturating 6 super tampons since 1100 today. Reports lower abd/pelvic pain 04/15. Reports has taken 3 ibuprofen without relief. Also has taken tramadol x 1 without relief. Triage Nursing Assessment: Pt alert, oriented, answers all questions appropriately. Skin pink, warm, dry. Resps non-labored. Pt ambulatory to tx room, steady gait noted. Physician History: CC: menstrual bleeding Hx: 22 y/o patient with 2 prior normal vaginal deliveries. She was on IUD but it came out. She was using control patches but lost them. She had a 3 week menses. Now has return of heavy menses. Heavy bleeding this AM. [place] cramping. Normal urination. No fever or chills. Using tampons and pads. Bleeding was worst this AM. Allergies/Adverse Reactions: diphenhydramine HCl [From Benadryl] Adverse Reaction (Mild, Verified 04/12/17 09 :44) "I FEEL LIKE I AM ON CRACK" doxycycline Adverse Reaction (Mild, Verified 04/12/17 09:44) Nausea promethazine HCl [From Phenergan] Adverse Reaction (Mild, Verified 04/12/17 09: 44) "I FEEL LIKE I AM ON CRACK" Home Medications: No Home Meds [No Home Meds] 1 [facility] UD 04/12/17 [History] Hx Tetanus, Diphtheria Vaccination/Date Given: Yes Hx Influenza Vaccination/Date Given: No Hx Pneumococcal Vaccination/Date Given: No - Review of Systems Constitutional: No Fever, No Chills Eyes: No Symptoms Ears, Nose, & Throat: No Symptoms Cardiac: No Chest Pain Abdominal/Gastrointestinal: No Abdominal Pain, No Nausea, No Vomiting, No Diarrhea Genitourinary Symptoms: Vaginal Bleeding, No , No Vaginal Discharge Skin: No Rash Neurological: No Headache All Other Systems: Reviewed and Negative - Past Medical History Pertinent Past Medical History: Yes Neurological History: Migraines ENT History: No Pertinent History Cardiac History: No Pertinent History Respiratory History: No Pertinent History Endocrine Medical History: No Pertinent History Musculoskeletal History: No Pertinent History GI Medical History: No Pertinent History, Other History: No Pertinent History Psycho-Social History: Depression Female Reproductive Disorders: Endometriosis, Other Other Medical History: 2 prior vaginal deliveries. Endometriosis. PCOS - Past Surgical History Past Surgical History: Yes Neuro Surgical History: No Pertinent History Cardiac: No Pertinent History Respiratory: No Pertinent History Gastrointestinal: No Pertinent History Genitourinary: No Pertinent History Musculoskeletal: No Pertinent History Female Surgical History: Other Other Surgical History: D&C, LAP-endomet - Social History Smoking Status: Current every day smoker How long have you smoked: 7 years Exposure to second hand smoke: No Drug Use: none Patient Lives Alone: No Significant Family History: no pertinent family hx - Female History Hx Last Menstrual Period: now Hx Now: No - Nursing Vital Signs Nursing Vital Signs: Initial Vital Signs Temperature 98.7 F 10/28/17 16:09 Pulse Rate 76 10/28/17 16:09 Respiratory Rate 16 10/28/17 16:09 Blood Pressure 124/76 10/28/17 16:09 O2 Sat by Pulse Oximetry 97 10/28/17 16:09 Pain Scale Pain Intensity 7 - Physical Exam General Appearance: alert Eye Exam: PERRL/EOMI Ears, Nose, Throat Exam: normal ENT inspection, moist mucous membranes Neck Exam: supple Respiratory Exam: No respiratory distress Cardiovascular Exam: regular rate/rhythm Gastrointestinal/Abdomen Exam: soft, No tenderness, No distention, No mass, No guarding Pelvic Exam: normal external exam, vaginal bleeding (consistent with moderate menses, no mass, no polyps, no abnormal discharge) Extremity Exam: normal inspection, normal range of motion Neurologic Exam: alert, oriented x 3, cooperative, sensation nml, No motor deficits Skin Exam: warm, dry, No rash SpO2 Interpretation: normal SpO2: 97 Oxygen Delivery: Room Air - Course Nursing assessment & vital signs reviewed: Yes Ordered Tests: Active Orders 24 hr Category Date Time Status Gown/Disrobe Pt STAT Care 10/28/17 16:15 Active IV Insertion STAT Care 10/28/17 16:15 Active Pelvic Exam Assist STAT Care 10/28/17 16:15 Active CBC W DIFF Stat Lab 10/28/17 16:32 Completed HCG QUALITATIVE,SERUM Stat Lab 10/28/17 16:32 Received Wet Prep Stat Lab 10/28/17 16:15 Ordered Medication Summary Generic Name Dose Route Start Last Admin Trade Name Huseyinq PRN Reason Stop Dose Admin Lactated Ringer's 1,000 mls @ 999 mls/hr 10/28/17 16:15 Lactated Ringers IV 10/28/17 17:15 .[id number] ONE Discontinued Medications Generic Name Dose Route Start Last Admin Trade Name Huseyinq PRN Reason Stop Dose Admin Ketorolac Tromethamine 30 mg 10/28/17 16:15 Toradol 30 Mg Injection IV 10/28/17 16:16 STAT ONE Lab/Rad Data: Laboratory Result Diagrams 10/28/17 16:32 Laboratory Results 10/28/17 Range/Units 16:32 WBC 6.4 (4.0-10.5) K/mm3 RBC 4.25 (4.1-5.4) M/mm3 Hgb 12.9 (12.0-16.0) gm/dl Hct 40.0 (35-47) % MCV 94.1 (78-100) fl MCH 30.4 (26-32) pg MCHC 32.3 (32-36) g/dl RDW 12.5 (11.5-14.0) % Plt Count 177 (150-450) K/mm3 MPV 11.3 H (6-9.5) fl Gran % 66.7 H (36.0-66.0) % Lymphocytes % 21.9 L (24.0-44.0) % Monocytes % 7.8 (0.0-12.0) % Eosinophils % 3.4 (0.00-5.0) % Basophils % 0.2 (0.0-0.4) % Basophils # 0.01 (0-0.4) - Progress Progress Note: 10/28/17 16:45 She has apparent dysmenorrhea and dysfunction uterine bleeding likely as rebound off of mirena IUD and control patch. Hg and vitals ok. Advised NSAIDS and follow up with Dr Gtz. Counseled pt/family regarding: lab results, diagnosis, need for follow-up - Departure Time of Disposition: 16:48 Departure Disposition: Home Clinical Impression: Dysfunctional uterine bleeding Condition: Stable Critical Care Time: No Referrals: KENYON GTZ [Primary Care Provider] - Instructions: Heavy Periods (DC) Additional Instructions: Follow up with Dr Gtz. Rx naproxen twice a day. Drink plenty of fluids. Return for problems or concerns. Prescriptions: Naproxen 500 mg [Naprosyn 500 MG] 500 tab PO BID #15 tablet
[2017-10-28] MEDS ORDERED: TORAdol 30 mg Injection ONE (16:51)
[2017-10-28 17:11] LABS: Clue Cells None Seen
[2017-10-28 17:12] LABS: Bacteria Few; Red Blood Cells Many; Trichomonas None Seen; White Blood Cells Rare; Yeast None Seen
[2017-10-28 17:38] VITALS: BP 125/75; PULSE 76
== END 2017-10-28 17:39 | disposition home or self-care (01) ==
LOC: ED 15:57
DX: N93.8 Other specified abnormal uterine and vaginal bleeding (principal)
CPT/HCPCS: 36000; 36415; 84703; 85025; 87210; 87490; 87590; 96360; 96374; 99284; J1885

== ENCOUNTER 2020-05-02 07:05 | Emergency (ER) | payer OTHER ==
--- NOTE | 2020-05-02 07:17 | ERPHSYRPT ---
- History of Present Illness Time Seen by Provider: 05/02/20 07:17 Historian: patient Exam Limitations: no limitations Physician History: This is a 24-year-old white female who presents with approximately 2-day history of concurrent nausea vomiting and generalized abdominal pain. It is not radiating is general in location. There is not associated fever or diarrhea. She has no chest pain and she is not short of breath. No other individuals in the family have similar symptoms. Patient has no cough she has no sore throat. Patient is currently on her menstrual period. Timing/Duration: day(s) Activities at Onset: none Quality: fullness, pressure, tightness Abdominal Pain Onset Location: generalized abdomen Pain Radiation: no radiation Severity of Pain-Max: mild Severity of Pain-Current: mild Modifying Factors: Improves With: vomiting Associated Symptoms: nausea, vomiting Previous symptoms: no prior history Allergies/Adverse Reactions: diphenhydramine HCl [From Benadryl] Adverse Reaction (Mild, Verified 05/02/20 07:14) "I FEEL LIKE I AM ON CRACK" doxycycline Adverse Reaction (Mild, Verified 05/02/20 07:14) Nausea promethazine HCl [From Phenergan] Adverse Reaction (Mild, Verified 05/02/20 07:14) "I FEEL LIKE I AM ON CRACK" Hx Tetanus, Diphtheria Vaccination/Date Given: Yes Hx Influenza Vaccination/Date Given: No Hx Pneumococcal Vaccination/Date Given: No Travel Risk - International Travel Have you traveled outside of the country in past 3 weeks: No - Coronavirus Screening Are you exhibiting any of the following symptoms?: No Close contact with a COVID-19 positive Pt in past 14-21 Days: No - Review of Systems Constitutional: No Symptoms Eyes: No Symptoms Ears, Nose, & Throat: No Symptoms Respiratory: No Symptoms Cardiac: No Symptoms Abdominal/Gastrointestinal: Abdominal Pain, Nausea, Vomiting Genitourinary Symptoms: No Symptoms Musculoskeletal: No Symptoms Skin: No Symptoms Neurological: No Symptoms Psychological: No Symptoms Endocrine: No Symptoms Hematologic/Lymphatic: No Symptoms Immunological/Allergic: No Symptoms All Other Systems: Reviewed and Negative - Past Medical History Pertinent Past Medical History: Yes Neurological History: Migraines ENT History: No Pertinent History Cardiac History: No Pertinent History Respiratory History: No Pertinent History Endocrine Medical History: No Pertinent History Musculoskeletal History: No Pertinent History GI Medical History: No Pertinent History, Other History: No Pertinent History Psycho-Social History: Depression Female Reproductive Disorders: Endometriosis, Other Other Medical History: 2 prior vaginal deliveries. Endometriosis. PCOS - Past Surgical History Past Surgical History: Yes Neuro Surgical History: No Pertinent History Cardiac: No Pertinent History Respiratory: No Pertinent History Gastrointestinal: No Pertinent History Genitourinary: No Pertinent History Musculoskeletal: No Pertinent History Female Surgical History: Other Other Surgical History: D&C, LAP-endomet - Social History Smoking Status: Current every day smoker How long have you smoked: 7 years Exposure to second hand smoke: No Drug Use: none Patient Lives Alone: No Significant Family History: no pertinent family hx - Nursing Vital Signs Nursing Vital Signs: Initial Vital Signs Temperature 97.8 F 05/02/20 07:15 Pulse Rate 94 H 05/02/20 07:15 Respiratory Rate 16 05/02/20 07:15 Blood Pressure 108/72 05/02/20 07:15 O2 Sat by Pulse Oximetry 98 05/02/20 07:15 Pain Scale Pain Intensity 6 - Physical Exam General Appearance: mild distress, alert, anxiety Eye Exam: PERRL/EOMI, eyes nml inspection Ears, Nose, Throat Exam: normal ENT inspection, moist mucous membranes Neck Exam: normal inspection, non-tender, supple, full range of motion Respiratory Exam: normal breath sounds, lungs clear, airway intact, No chest tenderness, No respiratory distress Cardiovascular Exam: regular rate/rhythm, normal heart sounds, normal peripheral pulses Gastrointestinal/Abdomen Exam: tenderness (Generalized), distention (Generalized, mild) Pelvic Exam: not done Rectal Exam: not done Back Exam: normal inspection, normal range of motion, No CVA tenderness, No vertebral tenderness Extremity Exam: normal inspection, normal range of motion, pelvis stable Neurologic Exam: alert, oriented x 3, 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, 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, normal mood/affect, nml cerebellar function, nml station & gait, sensation nml Skin Exam: normal color, warm, dry Lymphatic Exam: No adenopathy SpO2 Interpretation: normal O2 Delivery: Room Air - Course Nursing assessment & vital signs reviewed: Yes Ordered Tests: Active Orders 24 hr Category Date Time Status IV Insertion STAT Care 05/02/20 07:30 Active ABDOMEN AND PELVIS W/0 CONTRAS [CT] Stat Exams 05/02/20 07:32 Completed AMYLASE Stat Lab 05/02/20 07:10 Completed CBC W DIFF Stat Lab 05/02/20 07:10 Completed CMP Stat Lab 05/02/20 07:10 Completed CULTURE,URINE Stat Lab 05/02/20 07:53 Received HCG,QUALITATIVE URINE Stat Lab 05/02/20 07:50 Completed LIPASE Stat Lab 05/02/20 07:10 Completed Lactic Acid Stat Lab 05/02/20 07:40 Completed UA W/RFX UR CULTURE Stat Lab 05/02/20 07:53 Completed Medication Summary Discontinued Medications Generic Name Dose Route Start Last Admin Trade Name Mauro PRN Reason Stop Dose Admin Famotidine 20 mg 05/02/20 07:30 05/02/20 07:48 Pepcid 20 Mg Vial IV 05/02/20 07:31 20 mg STAT ONE Administration Famotidine Confirm 05/02/20 07:46 Pepcid 20 Mg Vial Administered 05/02/20 07:47 Dose 20 mg IV .STK-MED ONE Sodium Chloride 1,000 mls @ 999 mls/hr 05/02/20 07:30 05/02/20 08:53 Sodium Chloride 0.9% 1000 Ml IV 05/02/20 08:30 Infused .Q1H1M STA Infusion Sodium Chloride Confirm 05/02/20 07:46 Sodium Chloride 0.9% 1000 Ml Administered 05/02/20 07:47 Dose 1,000 mls @ ud .ROUTE .STK-MED ONE Ondansetron HCl 4 mg 05/02/20 07:30 05/02/20 07:47 Zofran 4 Mg/2 Ml Vial IV 05/02/20 07:31 4 mg STAT ONE Administration Ondansetron HCl Confirm 05/02/20 07:46 Zofran 4 Mg/2 Ml Vial Administered 05/02/20 07:47 Dose 4 mg .ROUTE .STK-MED ONE Lab/Rad Data: Laboratory Result Diagrams 05/02/20 07:10 05/02/20 07:10 Laboratory Results 05/02/20 05/02/20 05/02/20 Range/Units 07:53 07:50 07:40 WBC (4.0-10.5) K/mm3 RBC (4.1-5.4) M/mm3 Hgb (12.0-16.0) gm/dl Hct (35-47) % MCV (78-100) fl MCH (26-32) pg MCHC (32-36) g/dl RDW (11.5-14.0) % Plt Count (150-450) K/mm3 MPV (7.5-11.0) fl Gran % (36.0-66.0) % Eos # (Auto) (0-0.5) Absolute Lymphs (auto) (1.0-4.6) Absolute Monos (auto) (0.0-1.3) Lymphocytes % (24.0-44.0) % Monocytes % (0.0-12.0) % Eosinophils % (0.00-5.0) % Basophils % (0.0-0.4) % Absolute Granulocytes (1.4-6.9) Basophils # (0-0.4) Sodium (137-145) mmol/L Potassium (3.5-5.1) mmol/L Chloride (98-107) mmol/L Carbon Dioxide (22-30) mmol/L Anion Gap (5-15) MEQ/L BUN (7-17) mg/dL Creatinine (0.52-1.04) mg/dL Estimated GFR ML/MIN Glucose (74-106) mg/dL Lactic Acid 1.4 (0.4-2.0) Calcium (8.4-10.2) mg/dL Total Bilirubin (0.2-1.3) mg/dL AST (14-36) U/L ALT (0-35) U/L Alkaline Phosphatase (38-126) U/L Serum Total Protein (6.3-8.2) g/dL Albumin (3.5-5.0) g/dL Amylase (30-110) U/L Lipase (23-300) U/L Urine Color ANDREAS (YELLOW) Urine Appearance SLIGHTLY CLOUDY (CLEAR) Urine pH 5.0 (5-6) Ur Specific [place] 1.031 (1.005-1.025) Urine Protein 30 (Negative) Urine Ketones NEGATIVE (NEGATIVE) Urine Blood MODERATE (0-5) Sen/ul Urine Nitrite NEGATIVE (NEGATIVE) Urine Bilirubin NEGATIVE (NEGATIVE) Urine Urobilinogen 2 (0-1) mg/dL Ur Leukocyte Esterase NEGATIVE (NEGATIVE) Urine WBC (Auto) NONE (0-5) /HPF Urine RBC (Auto) 3-5 (0-2) /HPF U Epithel Cells (Auto) RARE (FEW) /HPF Urine Bacteria (Auto) RARE (NEGATIVE) /HPF Urine Mucus (Auto) MANY (NEGATIVE) /HPF Urine Culture Reflexed YES (NO) Urine Glucose NEGATIVE (NEGATIVE) mg/dL Urine HCG, Qual NEGATIVE (Negative) 05/02/20 05/02/20 Range/Units 07:10 07:10 WBC 6.2 (4.0-10.5) K/mm3 RBC 4.36 (4.1-5.4) M/mm3 Hgb 13.6 (12.0-16.0) gm/dl Hct 40.9 (35-47) % MCV 93.8 (78-100) fl MCH 31.2 (26-32) pg MCHC 33.3 (32-36) g/dl RDW 14.0 (11.5-14.0) % Plt Count 193 (150-450) K/mm3 MPV 11.4 H (7.5-11.0) fl Gran % 81.9 H (36.0-66.0) % Eos # (Auto) 0.02 (0-0.5) Absolute Lymphs (auto) 0.68 L (1.0-4.6) Absolute Monos (auto) 0.41 (0.0-1.3) Lymphocytes % 11.0 L (24.0-44.0) % Monocytes % 6.6 (0.0-12.0) % Eosinophils % 0.3 (0.00-5.0) % Basophils % 0.2 (0.0-0.4) % Absolute Granulocytes 5.09 (1.4-6.9) Basophils # 0.01 (0-0.4) Sodium 139 (137-145) mmol/L Potassium 3.4 L (3.5-5.1) mmol/L Chloride 107 (98-107) mmol/L Carbon Dioxide 23 (22-30) mmol/L Anion Gap 12.0 (5-15) MEQ/L BUN 10 (7-17) mg/dL Creatinine 0.64 (0.52-1.04) mg/dL Estimated GFR > 60.0 ML/MIN Glucose 107 H (74-106) mg/dL Lactic Acid (0.4-2.0) Calcium 8.8 (8.4-10.2) mg/dL Total Bilirubin 0.60 (0.2-1.3) mg/dL AST 20 (14-36) U/L ALT 13 (0-35) U/L Alkaline Phosphatase 78 (38-126) U/L Serum Total Protein 6.9 (6.3-8.2) g/dL Albumin 4.2 (3.5-5.0) g/dL Amylase 59 (30-110) U/L Lipase 40 (23-300) U/L Urine Color (YELLOW) Urine Appearance (CLEAR) Urine pH (5-6) Ur Specific [place] (1.005-1.025) Urine Protein (Negative) Urine Ketones (NEGATIVE) Urine Blood (0-5) Sen/ul Urine Nitrite (NEGATIVE) Urine Bilirubin (NEGATIVE) Urine Urobilinogen (0-1) mg/dL Ur Leukocyte Esterase (NEGATIVE) Urine WBC (Auto) (0-5) /HPF Urine RBC (Auto) (0-2) /HPF U Epithel Cells (Auto) (FEW) /HPF Urine Bacteria (Auto) (NEGATIVE) /HPF Urine Mucus (Auto) (NEGATIVE) /HPF Urine Culture Reflexed (NO) Urine Glucose (NEGATIVE) mg/dL Urine HCG, Qual (Negative) - Progress Progress: improved, re-examined Progress Note: 05/02/20 09:34 CAT scan of the abdomen and pelvis shows no acute intra-abdominal abnormality Counseled pt/family regarding: lab results, diagnosis, need for follow-up, rad results - Departure Departure Disposition: Home Clinical Impression: Nausea and vomiting, Abdominal pain Condition: Stable Critical Care Time: No Referrals: HARSHA HEALY MD [Primary Care Provider] - Additional Instructions: Drink plenty of clear liquids. Use Tylenol and ibuprofen for abdominal pain. Follow-up with your primary care physician for persistent symptoms. Take medication as prescribed. Prescriptions: Ondansetron ODT 4 MG [Zofran Odt 4 mg] 4 mg PO Q6H PRN PRN #10 tab.rapdis PRN Reason: Vomiting
[2020-05-02] MEDS ORDERED: Sodium Chloride 0.9% 1000 ML 1,000 ML IV STA (07:30)
[2020-05-02] MEDS ORDERED: Pepcid 20 MG VIAL IV ONE ×2 (07:30→07:46)
[2020-05-02] MEDS ORDERED: Zofran 4 MG/2 ML VIAL IV ONE (07:30)
[2020-05-02] MEDS ORDERED: Zofran 4 MG/2 ML VIAL ONE (07:46)
[2020-05-02] MEDS ORDERED: Sodium Chloride 0.9% 1000 ML 1,000 ML ONE (07:46)
[2020-05-02 07:50] LABS: Absolute Neutrophil Ct (ANC) 5.09 (1.4-6.9); BASOPHIL % 0.2 % (0.0-0.4); Basophil (Absolute #) 0.01 (0-0.4); Eosinophil % 0.3 % (0.00-5.0); Eosinophil (Absolute #) 0.02 (0-0.5); Hematocrit 40.9 % (35-47); Hemoglobin 13.6 gm/dl (12.0-16.0); Lymphocyte (Absolute #) 0.68 (1.0-4.6); Mean Cell Volume 93.8 fl (78-100); Mean Corpuscular Hemoglobin 31.2 pg (26-32); Mean Corpuscular Hgb Concent. 33.3 g/dl (32-36); Mean Platelet Volume 11.4 fl (7.5-11.0); Monocyte (Absolute #) 0.41 (0.0-1.3); Monocytes % 6.6 % (0.0-12.0); Neutrophil % 81.9 % (36.0-66.0); Platelet Count 193 K/mm3 (150-450); Red Blood Count 4.36 M/mm3 (4.1-5.4); White Blood Count 6.2 K/mm3 (4.0-10.5)
[2020-05-02 07:53] LABS: Appearance SLIGHTLY CLOUDY (CLEAR); Bacteria RARE /HPF (NEGATIVE); Bilirubin NEGATIVE (NEGATIVE); Blood MODERATE Ery/ul (0-5); Epithelial Cells RARE /HPF (FEW); Glucose NEGATIVE (NEGATIVE); Ketones NEGATIVE (NEGATIVE); Leukocyte Esterase NEGATIVE (NEGATIVE); Mucus MANY /HPF (NEGATIVE); Nitrite NEGATIVE (NEGATIVE); Protein,Urine Dip 30 (Negative); Specific Gravity 1.031 (1.005-1.025); Urobilinogen 2 mg/dL (0-1)
[2020-05-02 08:02] LABS: ALBUMIN 4.2 g/dL (3.5-5.0); ALKALINE PHOSPHATASE 78 U/L (38-126); AMYLASE 59 U/L (30-110); BLOOD UREA NITROGEN 10 mg/dL (7-17); CHLORIDE 107 mmol/L (98-107); Calcium 8.8 mg/dL (8.4-10.2); Carbon Dioxide 23 mmol/L (22-30); Creatinine 1 0.64 mg/dL (0.52-1.04); Glucose 107 mg/dL (74-106); LIPASE 40 U/L (23-300); Potassium 3.4 mmol/L (3.5-5.1); SGOT/AST 20 U/L (14-36); SGPT/ALT 13 U/L (0-35); SODIUM 139 mmol/L (137-145); Total Protein 6.9 g/dL (6.3-8.2)
--- NOTE | 2020-05-02 08:55 | XRAY ---
Indication: Abdomen pain. Nausea and vomiting. Multiple contiguous axial images obtained through the abdomen and pelvis without contrast as ordered. Comparison: August 20, 2014. Lung bases are grossly clear. Heart is not enlarged. Noncontrasted stomach and bowel loops appear nonobstructed. Normal appendix. No free fluid/air. Tampon in situ. A few new bilateral pelvic phleboliths. Remaining liver, gallbladder, pancreas, spleen, adrenal glands, kidneys, ureters, bladder, uterus, and aorta appear unremarkable for noncontrast exam. Osseous structures intact. Impression: Continued negative CT abdomen/pelvis without contrast exam.
[2020-05-02 09:12] VITALS: O2SAT 98
[2020-05-02 09:40] VITALS: BP 124/74; PULSE 95
== END 2020-05-02 09:57 | disposition home or self-care (01) ==
LOC: ED 07:05
DX: R11.2 Nausea with vomiting, unspecified (principal); R10.9 Unspecified abdominal pain
CPT/HCPCS: 36000; 36415; 74176; 80053; 81001; 82150; 83605; 83690; 84703; 85025; 87086; 96360; 96374; 96375; 99284; J2405

== ENCOUNTER 2020-09-21 09:40 | Emergency (ER) | payer OTHER ==
--- NOTE | 2020-09-21 09:47 | ERPHSYRPT ---
- History of Present Illness Time Seen by Provider: 09/21/20 09:46 Historian: patient Exam Limitations: no limitations Physician History: This is a 25-year-old white female who had a history of a laparoscopy for endometriosis and D&C and presents with 4-day history of nausea, abdominal cramping and diarrhea. Patient was Covid tested and results showed positive Covid 19 infection. Patient symptoms continued to persist and they include abdominal cramping and diarrhea as well as muscle aches and pains. She is had nausea but no vomiting. She has no new cough. She has no chest pain she is not short of breath. Timing/Duration: day(s) (Four) Quality: cramping Abdominal Pain Onset Location: generalized abdomen Pain Radiation: no radiation Severity of Pain-Max: moderate Severity of Pain-Current: mild Modifying Factors: Worsens With: vomiting Associated Symptoms: diarrhea, nausea, No chest pain, No shortness of breath, No vomiting Previous symptoms: no prior history Allergies/Adverse Reactions: diphenhydramine HCl [From Benadryl] Adverse Reaction (Mild, Verified 09/21/20 09:51) "I FEEL LIKE I AM ON CRACK" doxycycline Adverse Reaction (Mild, Verified 09/21/20 09:51) Nausea promethazine HCl [From Phenergan] Adverse Reaction (Mild, Verified 09/21/20 09:51) "I FEEL LIKE I AM ON CRACK" Hx Tetanus, Diphtheria Vaccination/Date Given: Yes Hx Influenza Vaccination/Date Given: No Hx Pneumococcal Vaccination/Date Given: No Travel Risk - International Travel Have you traveled outside of the country in past 3 weeks: No - Coronavirus Screening Are you exhibiting any of the following symptoms?: Yes Symptoms: Vomiting/Diarrhea, Headaches/Body Aches/Fatigue Close contact with a COVID-19 positive Pt in past 14-21 Days: Yes - Review of Systems Constitutional: Weakness Eyes: No Symptoms Ears, Nose, & Throat: No Symptoms Respiratory: No Symptoms Cardiac: No Symptoms Abdominal/Gastrointestinal: Abdominal Pain (Generalized cramping), Nausea, Diarrhea, No Vomiting Genitourinary Symptoms: No Symptoms Musculoskeletal: No Symptoms Skin: No Symptoms Neurological: No Symptoms Psychological: No Symptoms Endocrine: No Symptoms Hematologic/Lymphatic: No Symptoms Immunological/Allergic: No Symptoms All Other Systems: Reviewed and Negative - Past Medical History Pertinent Past Medical History: Yes Neurological History: Migraines ENT History: No Pertinent History Cardiac History: No Pertinent History Respiratory History: No Pertinent History Endocrine Medical History: No Pertinent History Musculoskeletal History: No Pertinent History GI Medical History: No Pertinent History, Other History: No Pertinent History Psycho-Social History: Depression Female Reproductive Disorders: Endometriosis, Other Other Medical History: 2 prior vaginal deliveries. Endometriosis. PCOS - Past Surgical History Past Surgical History: Yes Neuro Surgical History: No Pertinent History Cardiac: No Pertinent History Respiratory: No Pertinent History Gastrointestinal: No Pertinent History Genitourinary: No Pertinent History Musculoskeletal: No Pertinent History Female Surgical History: Other Other Surgical History: D&C, LAP-endomet - Social History Smoking Status: Current every day smoker How long have you smoked: 7 years Exposure to second hand smoke: No Drug Use: none Patient Lives Alone: No Significant Family History: no pertinent family hx - Nursing Vital Signs Nursing Vital Signs: Initial Vital Signs Temperature 97.7 F 09/21/20 09:42 Pulse Rate 79 09/21/20 09:42 Respiratory Rate 18 09/21/20 09:42 Blood Pressure 111/85 09/21/20 09:42 O2 Sat by Pulse Oximetry 99 09/21/20 09:42 Pain Scale Pain Intensity 7 - Physical Exam General Appearance: mild distress, alert, anxiety Eye Exam: PERRL/EOMI, eyes nml inspection Ears, Nose, Throat Exam: normal ENT inspection, moist mucous membranes Neck Exam: normal inspection, non-tender, supple, full range of motion Respiratory Exam: normal breath sounds, lungs clear, airway intact, No chest tenderness, No respiratory distress Cardiovascular Exam: regular rate/rhythm, normal heart sounds, normal peripheral pulses Gastrointestinal/Abdomen Exam: soft, normal bowel sounds, tenderness (Mild generalized), No guarding, No rebound Pelvic Exam: not done Rectal Exam: not done Back Exam: normal inspection, normal range of motion, No CVA tenderness, No vertebral tenderness Extremity Exam: normal inspection, normal range of motion, pelvis stable Neurologic Exam: alert, oriented x 3, 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, 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, normal mood/affect, nml cerebellar function, nml station & gait, sensation nml Skin Exam: normal color, warm, dry Lymphatic Exam: No adenopathy SpO2 Interpretation: normal O2 Delivery: Room Air - Course Nursing assessment & vital signs reviewed: Yes Ordered Tests: Active Orders 24 hr Category Date Time Status IV Insertion STAT Care 09/21/20 09:59 Active ABDOMEN AND PELVIS W/0 CONTRAS [CT] Stat Exams 09/21/20 12:18 Completed AMYLASE Stat Lab 09/21/20 10:15 Completed CBC W DIFF Stat Lab 09/21/20 10:15 Completed CMP Stat Lab 09/21/20 10:15 Completed HCG,QUALITATIVE URINE Stat Lab 09/21/20 10:20 Completed INFLUENZA A+B HERIBERTO Stat Lab 09/21/20 10:15 Completed LIPASE Stat Lab 09/21/20 10:15 Completed Lactic Acid Stat Lab 09/21/20 09:59 Completed Mccone Screen Stat Lab 09/21/20 10:15 Completed UA W/RFX UR CULTURE Stat Lab 09/21/20 10:20 Completed Medication Summary Discontinued Medications Generic Name Dose Route Start Last Admin Trade Name Freq PRN Reason Stop Dose Admin Hydromorphone HCl 1 mg 09/21/20 09:59 09/21/20 10:25 Hydromorphone 1 Mg/Ml Injection IV 09/21/20 10:00 1 mg STAT ONE Administration Hydromorphone HCl Confirm 09/21/20 10:23 Hydromorphone 1 Mg/Ml Injection Administered 09/21/20 10:24 Dose 1 mg .ROUTE .STK-MED ONE Hydromorphone HCl 1 mg 09/21/20 12:16 09/21/20 12:24 Hydromorphone 1 Mg/Ml Injection IV 09/21/20 12:17 1 mg STAT ONE Administration Hydromorphone HCl Confirm 09/21/20 12:22 Hydromorphone 1 Mg/Ml Injection Administered 09/21/20 12:23 Dose 1 mg .ROUTE .STK-MED ONE Sodium Chloride 1,000 mls @ 999 mls/hr 09/21/20 09:59 09/21/20 11:21 Sodium Chloride 0.9% 1000 Ml IV 09/21/20 10:59 Infused .Q1H1M STA Infusion Sodium Chloride Confirm 09/21/20 10:23 Sodium Chloride 0.9% 1000 Ml Administered 09/21/20 10:24 Dose 1,000 mls @ ud .ROUTE .STK-MED ONE Sodium Chloride 1,000 mls @ 999 mls/hr 09/21/20 11:03 09/21/20 11:10 Sodium Chloride 0.9% 1000 Ml IV 09/21/20 12:03 999 mls/hr .Q1H1M STA Administration Sodium Chloride Confirm 09/21/20 11:08 Sodium Chloride 0.9% 1000 Ml Administered 09/21/20 11:09 Dose 1,000 mls @ ud .ROUTE .STK-MED ONE Ketorolac Tromethamine 30 mg 09/21/20 11:07 09/21/20 11:09 Toradol 30 Mg Injection IV 09/21/20 11:08 30 mg STAT ONE Administration Ketorolac Tromethamine Confirm 09/21/20 11:08 Toradol 30 Mg Injection Administered 09/21/20 11:09 Dose 30 mg .ROUTE .STK-MED ONE Ondansetron HCl 4 mg 09/21/20 10:08 09/21/20 10:24 Zofran 4 Mg/2 Ml Vial IV 09/21/20 10:09 4 mg STAT ONE Administration Ondansetron HCl Confirm 09/21/20 10:23 Zofran 4 Mg/2 Ml Vial Administered 09/21/20 10:24 Dose 4 mg .ROUTE .STK-MED ONE Promethazine HCl 12.5 mg 09/21/20 09:59 09/21/20 10:08 Phenergan 25 Mg Inj IM 09/21/20 10:00 Not Given STAT ONE Lab/Rad Data: Laboratory Result Diagrams 09/21/20 10:15 09/21/20 10:15 Laboratory Results 09/21/20 09/21/20 09/21/20 Range/Units 10:20 10:20 10:15 WBC (4.0-10.5) K/mm3 RBC (4.1-5.4) M/mm3 Hgb (12.0-16.0) gm/dl Hct (35-47) % MCV (78-100) fl MCH (26-32) pg MCHC (32-36) g/dl RDW (11.5-14.0) % Plt Count (150-450) K/mm3 MPV (7.5-11.0) fl Gran % (36.0-66.0) % Eos # (Auto) (0-0.5) Absolute Lymphs (auto) (1.0-4.6) Absolute Monos (auto) (0.0-1.3) Lymphocytes % (24.0-44.0) % Monocytes % (0.0-12.0) % Eosinophils % (0.00-5.0) % Basophils % (0.0-0.4) % Absolute Granulocytes (1.4-6.9) Basophils # (0-0.4) Sodium (137-145) mmol/L Potassium (3.5-5.1) mmol/L Chloride (98-107) mmol/L Carbon Dioxide (22-30) mmol/L Anion Gap (5-15) MEQ/L BUN (7-17) mg/dL Creatinine (0.52-1.04) mg/dL Estimated GFR ML/MIN Glucose (74-106) mg/dL Lactic Acid (0.4-2.0) Calcium (8.4-10.2) mg/dL Total Bilirubin (0.2-1.3) mg/dL AST (14-36) U/L ALT (0-35) U/L Alkaline Phosphatase (38-126) U/L Serum Total Protein (6.3-8.2) g/dL Albumin (3.5-5.0) g/dL Amylase (30-110) U/L Lipase (23-300) U/L Urine Color YELLOW (YELLOW) Urine Appearance CLEAR (CLEAR) Urine pH 8.5 (5-6) Ur Specific [place] 1.020 (1.005-1.025) Urine Protein NEGATIVE (Negative) Urine Ketones NEGATIVE (NEGATIVE) Urine Blood NEGATIVE (0-5) Sen/ul Urine Nitrite NEGATIVE (NEGATIVE) Urine Bilirubin NEGATIVE (NEGATIVE) Urine Urobilinogen NORMAL (0-1) mg/dL Ur Leukocyte Esterase NEGATIVE (NEGATIVE) Urine WBC (Auto) NONE (0-5) /HPF Urine RBC (Auto) 0-2 (0-2) /HPF U Epithel Cells (Auto) RARE (FEW) /HPF Urine Bacteria (Auto) NONE (NEGATIVE) /HPF U Non-Squamous Epi Cells RARE (FEW) /HPF Urine Culture Reflexed NO (NO) Urine Glucose NEGATIVE (NEGATIVE) mg/dL Urine HCG, Qual NEGATIVE (Negative) Monoscreen NEGATIVE (Negative) Influenza Type A Ag (NEGATIVE) Influenza Type B Ag (NEGATIVE) 12/16/20 12/16/20 12/16/20 Range/Units 10:15 10:15 10:15 WBC 6.5 (4.0-10.5) K/mm3 RBC 4.49 (4.1-5.4) M/mm3 Hgb 14.0 (12.0-16.0) gm/dl Hct 42.3 (35-47) % MCV 94.2 (78-100) fl MCH 31.2 (26-32) pg MCHC 33.1 (32-36) g/dl RDW 12.5 (11.5-14.0) % Plt Count 198 (150-450) K/mm3 MPV 12.1 H (7.5-11.0) fl Gran % 67.1 H (36.0-66.0) % Eos # (Auto) 0.12 (0-0.5) Absolute Lymphs (auto) 1.56 (1.0-4.6) Absolute Monos (auto) 0.46 (0.0-1.3) Lymphocytes % 23.9 L (24.0-44.0) % Monocytes % 7.0 (0.0-12.0) % Eosinophils % 1.8 (0.00-5.0) % Basophils % 0.2 (0.0-0.4) % Absolute Granulocytes 4.38 (1.4-6.9) Basophils # 0.01 (0-0.4) Sodium 139 (137-145) mmol/L Potassium 3.8 (3.5-5.1) mmol/L Chloride 109 H (98-107) mmol/L Carbon Dioxide 21 L (22-30) mmol/L Anion Gap 12.7 (5-15) MEQ/L BUN 9 (7-17) mg/dL Creatinine 0.60 (0.52-1.04) mg/dL Estimated GFR > 60.0 ML/MIN Glucose 94 (74-106) mg/dL Lactic Acid (0.4-2.0) Calcium 9.8 (8.4-10.2) mg/dL Total Bilirubin 0.50 (0.2-1.3) mg/dL AST 23 (14-36) U/L ALT 14 (0-35) U/L Alkaline Phosphatase 65 (38-126) U/L Serum Total Protein 7.6 (6.3-8.2) g/dL Albumin 4.5 (3.5-5.0) g/dL Amylase 62 (30-110) U/L Lipase 55 (23-300) U/L Urine Color (YELLOW) Urine Appearance (CLEAR) Urine pH (5-6) Ur Specific [place] (1.005-1.025) Urine Protein (Negative) Urine Ketones (NEGATIVE) Urine Blood (0-5) Sen/ul Urine Nitrite (NEGATIVE) Urine Bilirubin (NEGATIVE) Urine Urobilinogen (0-1) mg/dL Ur Leukocyte Esterase (NEGATIVE) Urine WBC (Auto) (0-5) /HPF Urine RBC (Auto) (0-2) /HPF U Epithel Cells (Auto) (FEW) /HPF Urine Bacteria (Auto) (NEGATIVE) /HPF U Non-Squamous Epi Cells (FEW) /HPF Urine Culture Reflexed (NO) Urine Glucose (NEGATIVE) mg/dL Urine HCG, Qual (Negative) Monoscreen (Negative) Influenza Type A Ag NEGATIVE (NEGATIVE) Influenza Type B Ag NEGATIVE (NEGATIVE) 09/21/20 Range/Units 09:59 WBC (4.0-10.5) K/mm3 RBC (4.1-5.4) M/mm3 Hgb (12.0-16.0) gm/dl Hct (35-47) % MCV (78-100) fl MCH (26-32) pg MCHC (32-36) g/dl RDW (11.5-14.0) % Plt Count (150-450) K/mm3 MPV (7.5-11.0) fl Gran % (36.0-66.0) % Eos # (Auto) (0-0.5) Absolute Lymphs (auto) (1.0-4.6) Absolute Monos (auto) (0.0-1.3) Lymphocytes % (24.0-44.0) % Monocytes % (0.0-12.0) % Eosinophils % (0.00-5.0) % Basophils % (0.0-0.4) % Absolute Granulocytes (1.4-6.9) Basophils # (0-0.4) Sodium (137-145) mmol/L Potassium (3.5-5.1) mmol/L Chloride (98-107) mmol/L Carbon Dioxide (22-30) mmol/L Anion Gap (5-15) MEQ/L BUN (7-17) mg/dL Creatinine (0.52-1.04) mg/dL Estimated GFR ML/MIN Glucose (74-106) mg/dL Lactic Acid 1.2 (0.4-2.0) Calcium (8.4-10.2) mg/dL Total Bilirubin (0.2-1.3) mg/dL AST (14-36) U/L ALT (0-35) U/L Alkaline Phosphatase (38-126) U/L Serum Total Protein (6.3-8.2) g/dL Albumin (3.5-5.0) g/dL Amylase (30-110) U/L Lipase (23-300) U/L Urine Color (YELLOW) Urine Appearance (CLEAR) Urine pH (5-6) Ur Specific [place] (1.005-1.025) Urine Protein (Negative) Urine Ketones (NEGATIVE) Urine Blood (0-5) Sen/ul Urine Nitrite (NEGATIVE) Urine Bilirubin (NEGATIVE) Urine Urobilinogen (0-1) mg/dL Ur Leukocyte Esterase (NEGATIVE) Urine WBC (Auto) (0-5) /HPF Urine RBC (Auto) (0-2) /HPF U Epithel Cells (Auto) (FEW) /HPF Urine Bacteria (Auto) (NEGATIVE) /HPF U Non-Squamous Epi Cells (FEW) /HPF Urine Culture Reflexed (NO) Urine Glucose (NEGATIVE) mg/dL Urine HCG, Qual (Negative) Monoscreen (Negative) Influenza Type A Ag (NEGATIVE) Influenza Type B Ag (NEGATIVE) - Progress Progress: pain not gone completely, re-examined Progress Note: 09/21/20 12:[address] ab[address]/pelvis s contrast Counseled pt/family regarding: lab results, diagnosis, need for follow-up, rad results - Departure Departure Disposition: Home Clinical Impression: Abdominal pain, Flank pain, Nausea Condition: Stable Critical Care Time: No Referrals: HARSHA HEALY MD [Primary Care Provider] - Additional Instructions: drink plenty of fluids. add ibuprofen 600mg orally with food 3 times daily. follow up with primary doctor for further management Prescriptions: Ondansetron ODT 4 MG [Zofran Odt 4 mg] 4 mg PO Q6H PRN PRN #10 tab.rapdis PRN Reason: Vomiting Hydrocodone/APAP 5/325 [[place] 5/325 mg] 1 each PO Q8H PRN PRN #6 tablet MDD 3 PRN Reason: Pain
[2020-09-21] MEDS ORDERED: Phenergan 25 MG INJ IM ONE (09:59)
[2020-09-21] MEDS ORDERED: Sodium Chloride 0.9% 1000 ML 1,000 ML IV STA ×2 (09:59→11:03)
[2020-09-21] MEDS ORDERED: Hydromorphone 1 mg/ml Injection IV ONE ×2 (09:59→12:16)
[2020-09-21] MEDS ORDERED: Zofran 4 MG/2 ML VIAL IV ONE (10:08)
[2020-09-21] MEDS ORDERED: Sodium Chloride 0.9% 1000 ML 1,000 ML ONE ×2 (10:23→11:08)
[2020-09-21] MEDS ORDERED: Zofran 4 MG/2 ML VIAL ONE (10:23)
[2020-09-21] MEDS ORDERED: Hydromorphone 1 mg/ml Injection ONE ×2 (10:23→12:22)
[2020-09-21 10:34] LABS: Absolute Neutrophil Ct (ANC) 4.38 (1.4-6.9); BASOPHIL % 0.2 % (0.0-0.4); Basophil (Absolute #) 0.01 (0-0.4); Eosinophil % 1.8 % (0.00-5.0); Eosinophil (Absolute #) 0.12 (0-0.5); Hematocrit 42.3 % (35-47); Lymphocyte (Absolute #) 1.56 (1.0-4.6); Lymphocytes % 23.9 % (24.0-44.0); Mean Cell Volume 94.2 fl (78-100); Mean Corpuscular Hemoglobin 31.2 pg (26-32); Mean Corpuscular Hgb Concent. 33.1 g/dl (32-36); Mean Platelet Volume 12.1 fl (7.5-11.0); Monocyte (Absolute #) 0.46 (0.0-1.3); Neutrophil % 67.1 % (36.0-66.0); Platelet Count 198 K/mm3 (150-450); Red Blood Count 4.49 M/mm3 (4.1-5.4); Red Cell Distribution Width 12.5 % (11.5-14.0); White Blood Count 6.5 K/mm3 (4.0-10.5)
[2020-09-21 10:34] LABS: Appearance CLEAR (CLEAR); Bilirubin NEGATIVE (NEGATIVE); Blood NEGATIVE Ery/ul (0-5); Glucose NEGATIVE (NEGATIVE); Ketones NEGATIVE (NEGATIVE); Leukocyte Esterase NEGATIVE (NEGATIVE); Nitrite NEGATIVE (NEGATIVE); Ph 8.5 (5-6); Protein,Urine Dip NEGATIVE (Negative); Urobilinogen NORMAL mg/dL (0-1)
[2020-09-21 10:41] LABS: INFLUENZA A NEGATIVE (NEGATIVE); INFLUENZA B NEGATIVE (NEGATIVE)
[2020-09-21 10:52] LABS: Epithelial Cells RARE /HPF (FEW); Non-Squamous Epithelial Cells RARE /HPF (FEW); RBC 0-2 /HPF (0-2)
[2020-09-21] MEDS ORDERED: TORAdol 30 mg Injection IV ONE (11:07)
[2020-09-21] MEDS ORDERED: TORAdol 30 mg Injection ONE (11:08)
[2020-09-21 11:23] LABS: ALBUMIN 4.5 g/dL (3.5-5.0); ALKALINE PHOSPHATASE 65 U/L (38-126); AMYLASE 62 U/L (30-110); ANION GAP 12.7 MEQ/L (5-15); BLOOD UREA NITROGEN 9 mg/dL (7-17); CHLORIDE 109 mmol/L (98-107); Calcium 9.8 mg/dL (8.4-10.2); Carbon Dioxide 21 mmol/L (22-30); EST GLOMERULAR FILTRATION RATE > 60.0 ML/MIN; Glucose 94 mg/dL (74-106); LIPASE 55 U/L (23-300); Potassium 3.8 mmol/L (3.5-5.1); SGOT/AST 23 U/L (14-36); SGPT/ALT 14 U/L (0-35); SODIUM 139 mmol/L (137-145); Total Protein 7.6 g/dL (6.3-8.2)
[2020-09-21 12:04] VITALS: O2SAT 98
--- NOTE | 2020-09-21 12:55 | XRAY ---
Indication: Abdomen pain, bilateral flank pain, and nausea. Positive Covid 19. Multiple contiguous images obtained through the abdomen and pelvis without contrast as ordered. Comparison: May 02, 2020. Lung bases demonstrate minimal dependent atelectasis. No focal infiltrate or effusion. Heart is not enlarged. Stomach is distended with food/fluid. Noncontrasted stomach and bowel loops remain nonobstructed again with normal appendix. Gallbladder contracted without gallstones. No free fluid/air. Remaining liver, gallbladder, pancreas, spleen, adrenal glands, kidneys, ureters, bladder, uterus, and aorta appear unremarkable for noncontrast exam. Osseous structures intact. Impression: Continued negative CT abdomen/pelvis without contrast exam.
[2020-09-21 13:24] VITALS: BP 130/77; PULSE 72
== END 2020-09-21 13:44 | disposition home or self-care (01) ==
LOC: ED 09:40
DX: R10.84 Generalized abdominal pain (principal); R11.0 Nausea; U07.1 COVID-19; R19.7 Diarrhea, unspecified; F17.200 Nicotine dependence, unspecified, uncomplicated
CPT/HCPCS: 36000; 36415; 74176; 80053; 81001; 82150; 83605; 83690; 84703; 85025; 86308; 87400; 96360; 96374; 96375; 96376; 99284; J1170; J1885; J2405

== ENCOUNTER 2021-01-10 17:11 | Emergency (ER) | payer OTHER ==
[2021-01-10 17:26] VITALS: BP 119/66; PULSE 91; O2SAT 97
--- NOTE | 2021-01-10 17:47 | ERPHSYRPT ---
- History of Present Illness Time Seen by Provider: 01/10/21 17:25 Source: patient Exam Limitations: no limitations Patient Subjective Stated Complaint: Mouth pain Triage Nursing Assessment: Patient ambulated back to ED and transferred self to bed. Patient A+O x3. Patient's skin pink, warm and dry. Patient complains of mouth pain to right side of mouth. Patient states her wisdom teeth are coming in on her right side that needs to come out, but she is unable to get into dentist until next week. Patient complains of constant pain 7/10. Gums ntoed to be red and swollen. Physician History: Patient is a 25-year-old female presents to our ED with complaints of pain to her left 17th molar. Pain started yesterday became significantly worse today. Pain described as an ache that is well localized. However patient occasionally feels pain shooting into her left ear. No dizziness or difficulty hearing. No trauma. No fever. No nausea or vomiting. Patient has no headache or neck pain. Patient currently has an appointment scheduled with her dentist. Patient is otherwise healthy. Patient voices no other complaints concerns at this time. Timing/Duration: yesterday Severity: moderate Modifying Factors: Improves With: nothing Associated Symptoms: denies symptoms Allergies/Adverse Reactions: diphenhydramine HCl [From Benadryl] Adverse Reaction (Mild, Verified 01/10/21 17:18) "I FEEL LIKE I AM ON CRACK" doxycycline Adverse Reaction (Mild, Verified 01/10/21 17:18) Nausea promethazine HCl [From Phenergan] Adverse Reaction (Mild, Verified 01/10/21 17:18) "I FEEL LIKE I AM ON CRACK" Hx Tetanus, Diphtheria Vaccination/Date Given: Yes Hx Influenza Vaccination/Date Given: No Hx Pneumococcal Vaccination/Date Given: No Immunizations Up to Date: Yes Travel Risk - International Travel Have you traveled outside of the country in past 3 weeks: No - Coronavirus Screening Are you exhibiting any of the following symptoms?: No Close contact with a COVID-19 positive Pt in past 14-21 Days: No - Vaccine Status Have you recieved a Covid-19 vaccination: No - Review of Systems Constitutional: No Symptoms, No Fever, No Chills Eyes: No Symptoms Ears, Nose, & Throat: No Symptoms Respiratory: No Symptoms, No Cough, No Dyspnea Cardiac: No Symptoms, No Chest Pain, No Edema, No Syncope Abdominal/Gastrointestinal: No Symptoms, No Abdominal Pain, No Nausea, No Vomiting, No Diarrhea Genitourinary Symptoms: No Symptoms, No Dysuria Musculoskeletal: No Symptoms, No Back Pain, No Neck Pain Skin: No Symptoms, No Rash Neurological: No Symptoms, No Dizziness, No Focal Weakness, No Sensory Changes Psychological: No Symptoms Endocrine: No Symptoms Hematologic/Lymphatic: No Symptoms Immunological/Allergic: No Symptoms All Other Systems: Reviewed and Negative - Past Medical History Pertinent Past Medical History: Yes Neurological History: Migraines ENT History: No Pertinent History Cardiac History: No Pertinent History Respiratory History: No Pertinent History Endocrine Medical History: Hypoglycemia Musculoskeletal History: Arthritis, Degenerative Disk Disease, Other GI Medical History: No Pertinent History, Other History: No Pertinent History Psycho-Social History: Depression Female Reproductive Disorders: Endometriosis, Other Other Medical History: 2 prior vaginal deliveries. Endometriosis. PCOS. scoli osis to back - Past Surgical History Past Surgical History: Yes Neuro Surgical History: No Pertinent History Cardiac: No Pertinent History Respiratory: No Pertinent History Gastrointestinal: No Pertinent History Genitourinary: No Pertinent History Musculoskeletal: No Pertinent History Female Surgical History: Other Other Surgical History: D&C, LAP-endomet - Social History Smoking Status: Current every day smoker How long have you smoked: 7 years Exposure to second hand smoke: Yes Drug Use: marijuana Patient Lives Alone: No Significant Family History: no pertinent family hx - Female History Hx Now: No - Nursing Vital Signs Nursing Vital Signs: Initial Vital Signs Temperature 98.4 F 01/10/21 17:19 Pulse Rate 91 H 01/10/21 17:19 Respiratory Rate 18 01/10/21 17:19 Blood Pressure 119/66 01/10/21 17:19 O2 Sat by Pulse Oximetry 97 01/10/21 17:19 Pain Scale Pain Intensity 7 - Physical Exam General Appearance: no apparent distress, alert Eye Exam: PERRL/EOMI, eyes nml inspection Ears, Nose, Throat Exam: normal ENT inspection, TMs normal, pharynx normal, moist mucous membranes, other (Soft tissue adjacent to tooth #17 is inflamed and tender. There appears to be an early cellulitis. Palpation percussion and mastication reproduces symptoms.) Neck Exam: normal inspection, non-tender, supple, full range of motion Respiratory Exam: normal breath sounds, lungs clear, No respiratory distress Cardiovascular Exam: regular rate/rhythm, normal heart sounds, normal peripheral pulses Gastrointestinal/Abdomen Exam: soft, normal bowel sounds, No tenderness, No mass Back Exam: normal inspection, normal range of motion, No CVA tenderness, No vertebral tenderness Extremity Exam: normal inspection, normal range of motion, pelvis stable Neurologic Exam: alert, oriented x 3, cooperative, normal mood/affect, nml cerebellar function, nml station & gait, sensation nml, No motor deficits Skin Exam: normal color, warm, dry, No rash Lymphatic Exam: No adenopathy SpO2 Interpretation: normal SpO2: 97 O2 Delivery: Room Air - Course Nursing assessment & vital signs reviewed: Yes Ordered Tests: Medication Summary Discontinued Medications Generic Name Dose Route Start Last Admin Trade Name Huseyinq PRN Reason Stop Dose Admin Ketorolac Tromethamine 30 mg 01/10/21 18:01 Toradol 30 Mg Injection IM 01/10/21 18:02 STAT ONE Penicillin V Potassium 500 mg 01/10/21 17:58 Pen-Vee K PO 01/10/21 17:59 STAT ONE - Progress Progress: improved Progress Note: 01/10/21 18:06 Patient reassessed. Pain improved. Patient received a dose of penicillin VK in our ED. Patient also received a dose of Toradol. A prescription for Peridex, penicillin VK and Toradol was forwarded to patient's pharmacy. Patient agrees to maintain and follow through with her appointment with her dentist. Patient voices no other complaints concerns this time will discharge home. Counseled pt/family regarding: diagnosis, need for follow-up - Departure Departure Disposition: Home Clinical Impression: Dental infection, Pain, dental Condition: Stable Critical Care Time: No Referrals: HARSHA HEALY MD [Primary Care Provider] - Prescriptions: Penicillin V Potassium 500 mg PO TID 7 Days #21 tablet Chlorhexidine Gluconate [Peridex] 15 ml MM TID 7 Days #315 mouthwash Ketorolac Tromethamine [Toradol] 10 mg PO TID 5 Days #15 tablet
[2021-01-10] MEDS ORDERED: PEN-VEE K PO ONE (17:58)
[2021-01-10] MEDS ORDERED: TORAdol 30 mg Injection IM ONE (18:01)
[2021-01-10] MEDS ORDERED: TORAdol 30 mg Injection ONE (18:07)
[2021-01-10] MEDS ORDERED: PEN-VEE K ONE (18:07)
== END 2021-01-10 18:25 | disposition home or self-care (01) ==
LOC: ED 17:11
DX: K08.89 Other specified disorders of teeth and supporting structures (principal)
CPT/HCPCS: 96372; 99283; J1885; A9270-GY

== ENCOUNTER 2021-02-19 12:54 | Emergency (ER) | payer OTHER ==
[2021-02-19 13:11] VITALS: O2SAT 98
--- NOTE | 2021-02-19 13:23 | ERPHSYRPT ---
- History of Present Illness Time Seen by Provider: 02/19/21 13:20 Historian: patient Exam Limitations: no limitations Patient Subjective Stated Complaint: pt here for right flank pain for a couple days, with nausea and vomiting, pain with urine, no fever Triage Nursing Assessment: pt alert, face mask in place, restless, holding right side, resp easy, skin w/d/p Physician History: Patient is a 25-year-old female who is been sick for 3 days with right flank pain she also has had nausea and vomiting and some hot sweats for 3 days she has seen VA tenderness on the right that radiates into the flank she describes it as a stabbing pain with any movement or pressure. When urinating she notices the stabbing pain going into the quadrant right lower quadrant Timing/Duration: day(s) (3) Activities at Onset: none Quality: sharpness, stabbing Abdominal Pain Onset Location: RLQ, flank Pain Radiation: RLQ Severity of Pain-Max: severe Severity of Pain-Current: severe Modifying Factors: Improves With: vomiting Associated Symptoms: vomiting Previous symptoms: no prior history Allergies/Adverse Reactions: diphenhydramine HCl [From Benadryl] Adverse Reaction (Mild, Verified 02/19/21 13:10) "I FEEL LIKE I AM ON CRACK" doxycycline Adverse Reaction (Mild, Verified 02/19/21 13:10) Nausea promethazine HCl [From Phenergan] Adverse Reaction (Mild, Verified 02/19/21 13:10) "I FEEL LIKE I AM ON CRACK" Home Medications: Levothyroxine Sodium [Euthyrox] 1 ea DAILY 02/19/21 [History] Norgestimate-Ethinyl Estradiol [Tri-Linyah Tablet] 1 ea DAILY 02/19/21 [History] Venlafaxine HCl 37.5 mg [Effexor 37.5 mg] 1 ea DAILY 02/19/21 [History] clonazePAM [Clonazepam] 1 ea DAILY 02/19/21 [History] Hx Tetanus, Diphtheria Vaccination/Date Given: Yes Hx Influenza Vaccination/Date Given: No Hx Pneumococcal Vaccination/Date Given: No Immunizations Up to Date: Yes Travel Risk - International Travel Have you traveled outside of the country in past 3 weeks: No - Coronavirus Screening Are you exhibiting any of the following symptoms?: No Close contact with a COVID-19 positive Pt in past 14-21 Days: No - Vaccine Status Have you recieved a Covid-19 vaccination: No - Review of Systems Constitutional: No Fever, No Chills Eyes: No Symptoms Ears, Nose, & Throat: No Symptoms Respiratory: No Cough, No Dyspnea Cardiac: No Chest Pain, No Edema, No Syncope Abdominal/Gastrointestinal: No Abdominal Pain, No Nausea, No Vomiting, No Diarrhea Genitourinary Symptoms: Dysuria, Flank Pain Musculoskeletal: No Back Pain, No Neck Pain Skin: No Rash Neurological: No Dizziness, No Focal Weakness, No Sensory Changes Psychological: No Symptoms Endocrine: No Symptoms All Other Systems: Reviewed and Negative - Past Medical History Pertinent Past Medical History: Yes Neurological History: Migraines ENT History: No Pertinent History Cardiac History: No Pertinent History Respiratory History: No Pertinent History Endocrine Medical History: Hypoglycemia Musculoskeletal History: Arthritis, Degenerative Disk Disease, Other GI Medical History: No Pertinent History, Other History: No Pertinent History Psycho-Social History: Depression Female Reproductive Disorders: Endometriosis, Other Other Medical History: 2 prior vaginal deliveries. Endometriosis. PCOS. scoliosis to back - Past Surgical History Past Surgical History: Yes Neuro Surgical History: No Pertinent History Cardiac: No Pertinent History Respiratory: No Pertinent History Gastrointestinal: No Pertinent History Genitourinary: No Pertinent History Musculoskeletal: No Pertinent History Female Surgical History: Other Other Surgical History: D&C, LAP-endomet - Social History Smoking Status: Current every day smoker How long have you smoked: 7 years Exposure to second hand smoke: Yes Drug Use: marijuana Patient Lives Alone: No Significant Family History: no pertinent family hx - Female History Hx Last Menstrual Period: due Hx Now: No - Nursing Vital Signs Nursing Vital Signs: Initial Vital Signs Temperature 97.9 F 02/19/21 13:07 Pulse Rate 96 H 02/19/21 13:07 Respiratory Rate 18 02/19/21 13:07 Blood Pressure 120/85 02/19/21 13:07 O2 Sat by Pulse Oximetry 98 02/19/21 13:07 Pain Scale Pain Intensity 3 - Physical Exam General Appearance: moderate distress, alert Eye Exam: PERRL/EOMI, eyes nml inspection Ears, Nose, Throat Exam: normal ENT inspection, pharynx normal, moist mucous membranes Neck Exam: normal inspection, non-tender, supple, full range of motion Respiratory Exam: normal breath sounds, lungs clear, No respiratory distress Cardiovascular Exam: regular rate/rhythm, normal heart sounds Gastrointestinal/Abdomen Exam: soft, No tenderness, No mass Back Exam: normal inspection, normal range of motion, No CVA tenderness, No vertebral tenderness Extremity Exam: normal inspection, normal range of motion, pelvis stable Neurologic Exam: alert, oriented x 3, cooperative, normal mood/affect, nml cerebellar function, sensation nml, No motor deficits Skin Exam: normal color, warm, dry SpO2: 98 - Course Nursing assessment & vital signs reviewed: Yes - CT Exams Abdomen/Pelvis CT Interpretation: Negative, Tele-radiologist Report Ordered Tests: Active Orders 24 hr Category Date Time Status IV Insertion STAT Care 02/19/21 13:25 Active ABDOMEN AND PELVIS W/0 CONTRAS [CT] Stat Exams 02/19/21 13:47 Taken AMYLASE Stat Lab 02/19/21 13:32 Completed CBC W DIFF Stat Lab 02/19/21 13:32 Completed CMP Stat Lab 02/19/21 13:32 Completed HCG QUALITATIVE,SERUM Stat Lab 02/19/21 13:32 Completed LIPASE Stat Lab 02/19/21 13:32 Completed Lactic Acid Stat Lab 02/19/21 13:40 Completed UA W/RFX UR CULTURE Stat Lab 02/19/21 13:32 Completed Medication Summary Discontinued Medications Generic Name Dose Route Start Last Admin Trade Name Huseyinq PRN Reason Stop Dose Admin Hydromorphone HCl 1 mg 02/19/21 13:24 02/19/21 13:28 Hydromorphone 1 Mg/Ml Injection IV 02/19/21 13:25 1 mg STAT ONE Administration Hydromorphone HCl Confirm 02/19/21 13:26 Hydromorphone 1 Mg/Ml Injection Administered 02/19/21 13:27 Dose 1 mg .ROUTE .STK-MED ONE Sodium Chloride 1,000 mls @ 999 mls/hr 02/19/21 13:25 02/19/21 15:07 Sodium Chloride 0.9% 1000 Ml IV 02/19/21 14:25 Infused .Q1H1M STA Infusion Sodium Chloride Confirm 02/19/21 13:33 Sodium Chloride 0.9% 1000 Ml Administered 02/19/21 13:34 Dose 1,000 mls @ ud .ROUTE .STK-MED ONE Ketorolac Tromethamine 30 mg 02/19/21 13:39 02/19/21 13:40 Toradol 30 Mg Injection IV 02/19/21 13:40 30 mg STAT ONE Administration Ketorolac Tromethamine Confirm 02/19/21 13:39 Toradol 30 Mg Injection Administered 02/19/21 13:40 Dose 30 mg .ROUTE .STK-MED ONE Ondansetron HCl 4 mg 02/19/21 13:24 02/19/21 13:28 Zofran 4 Mg/2 Ml Vial IV 02/19/21 13:25 4 mg STAT ONE Administration Ondansetron HCl Confirm 02/19/21 13:26 Zofran 4 Mg/2 Ml Vial Administered 02/19/21 13:27 Dose 4 mg .ROUTE .STK-MED ONE Lab/Rad Data: Laboratory Result Diagrams 02/19/21 13:32 02/19/21 13:32 Laboratory Results 02/19/21 02/19/21 02/19/21 Range/Units 13:40 13:32 13:32 WBC (4.0-10.5) K/mm3 RBC (4.1-5.4) M/mm3 Hgb (12.0-16.0) gm/dl Hct (35-47) % MCV (78-100) fl MCH (26-32) pg MCHC (32-36) g/dl RDW (11.5-14.0) % Plt Count (150-450) K/mm3 MPV (7.5-11.0) fl Gran % (36.0-66.0) % Eos # (Auto) (0-0.5) Absolute Lymphs (auto) (1.0-4.6) Absolute Monos (auto) (0.0-1.3) Lymphocytes % (24.0-44.0) % Monocytes % (0.0-12.0) % Eosinophils % (0.00-5.0) % Basophils % (0.0-0.4) % Absolute Granulocytes (1.4-6.9) Basophils # (0-0.4) Sodium 138 (137-145) mmol/L Potassium 4.1 (3.5-5.1) mmol/L Chloride 108 H (98-107) mmol/L Carbon Dioxide 23 (22-30) mmol/L Anion Gap 11.2 (5-15) MEQ/L BUN 10 (7-17) mg/dL Creatinine 0.69 (0.52-1.04) mg/dL Estimated GFR > 60.0 ML/MIN Glucose 109 H (74-106) mg/dL Lactic Acid 1.2 (0.4-2.0) Calcium 9.3 (8.4-10.2) mg/dL Total Bilirubin 0.40 (0.2-1.3) mg/dL AST 21 (14-36) U/L ALT 14 (0-35) U/L Alkaline Phosphatase 66 (38-126) U/L Serum Total Protein 6.9 (6.3-8.2) g/dL Albumin 4.3 (3.5-5.0) g/dL Amylase 58 (30-110) U/L Lipase 88 (23-300) U/L Serum , Qual NEGATIVE (Negative) Urine Color (YELLOW) Urine Appearance (CLEAR) Urine pH (5-6) Ur Specific Laurel (1.005-1.025) Urine Protein (Negative) Urine Ketones (NEGATIVE) Urine Blood (0-5) Sen/ul Urine Nitrite (NEGATIVE) Urine Bilirubin (NEGATIVE) Urine Urobilinogen (0-1) mg/dL Ur Leukocyte Esterase (NEGATIVE) Urine WBC (Auto) (0-5) /HPF Urine RBC (Auto) (0-2) /HPF U Epithel Cells (Auto) (FEW) /HPF Urine Bacteria (Auto) (NEGATIVE) /HPF Urine Mucus (Auto) (NEGATIVE) /HPF Urine Culture Reflexed (NO) Urine Glucose (NEGATIVE) mg/dL 02/19/21 02/19/21 Range/Units 13:32 13:32 WBC 6.7 (4.0-10.5) K/mm3 RBC 4.30 (4.1-5.4) M/mm3 Hgb 13.3 (12.0-16.0) gm/dl Hct 41.3 (35-47) % MCV 96.0 (78-100) fl MCH 30.9 (26-32) pg MCHC 32.2 (32-36) g/dl RDW 12.5 (11.5-14.0) % Plt Count 170 (150-450) K/mm3 MPV 12.1 H (7.5-11.0) fl Gran % 66.3 H (36.0-66.0) % Eos # (Auto) 0.15 (0-0.5) Absolute Lymphs (auto) 1.59 (1.0-4.6) Absolute Monos (auto) 0.52 (0.0-1.3) Lymphocytes % 23.7 L (24.0-44.0) % Monocytes % 7.7 (0.0-12.0) % Eosinophils % 2.2 (0.00-5.0) % Basophils % 0.1 (0.0-0.4) % Absolute Granulocytes 4.44 (1.4-6.9) Basophils # 0.01 (0-0.4) Sodium (137-145) mmol/L Potassium (3.5-5.1) mmol/L Chloride (98-107) mmol/L Carbon Dioxide (22-30) mmol/L Anion Gap (5-15) MEQ/L BUN (7-17) mg/dL Creatinine (0.52-1.04) mg/dL Estimated GFR ML/MIN Glucose (74-106) mg/dL Lactic Acid (0.4-2.0) Calcium (8.4-10.2) mg/dL Total Bilirubin (0.2-1.3) mg/dL AST (14-36) U/L ALT (0-35) U/L Alkaline Phosphatase (38-126) U/L Serum Total Protein (6.3-8.2) g/dL Albumin (3.5-5.0) g/dL Amylase (30-110) U/L Lipase (23-300) U/L Serum , Qual (Negative) Urine Color ANDREAS (YELLOW) Urine Appearance CLOUDY (CLEAR) Urine pH 8.0 (5-6) Ur Specific [place] 1.025 (1.005-1.025) Urine Protein NEGATIVE (Negative) Urine Ketones NEGATIVE (NEGATIVE) Urine Blood NEGATIVE (0-5) Sen/ul Urine Nitrite NEGATIVE (NEGATIVE) Urine Bilirubin NEGATIVE (NEGATIVE) Urine Urobilinogen 2 (0-1) mg/dL Ur Leukocyte Esterase SMALL (NEGATIVE) Urine WBC (Auto) 0-2 (0-5) /HPF Urine RBC (Auto) 0-2 (0-2) /HPF U Epithel Cells (Auto) FEW (FEW) /HPF Urine Bacteria (Auto) RARE (NEGATIVE) /HPF Urine Mucus (Auto) SLIGHT (NEGATIVE) /HPF Urine Culture Reflexed NO (NO) Urine Glucose NEGATIVE (NEGATIVE) mg/dL - Progress Progress: improved - Departure Departure Disposition: Home Clinical Impression: Renal colic on right side Condition: Stable Critical Care Time: No Referrals: HARSHA HEALY MD [Primary Care Provider] - Instructions: Flank Pain Forms: Work/School Release Form Prescriptions: Diclofenac Submicronized [Diclofenac] 35 mg PO Q6-8HPRN PRN 4 Days #20 capsule PRN Reason: Moderate Pain Cephalexin Mh 500 mg [Keflex 500 mg] 500 mg PO TID #21 capsule
[2021-02-19] MEDS ORDERED: Hydromorphone 1 mg/ml Injection IV ONE (13:24)
[2021-02-19] MEDS ORDERED: Zofran 4 MG/2 ML VIAL IV ONE (13:24)
[2021-02-19] MEDS ORDERED: Sodium Chloride 0.9% 1000 ML 1,000 ML IV STA (13:25)
[2021-02-19] MEDS ORDERED: Zofran 4 MG/2 ML VIAL ONE (13:26)
[2021-02-19] MEDS ORDERED: Hydromorphone 1 mg/ml Injection ONE (13:26)
[2021-02-19] MEDS ORDERED: Sodium Chloride 0.9% 1000 ML 1,000 ML ONE (13:33)
[2021-02-19] MEDS ORDERED: TORAdol 30 mg Injection IV ONE (13:39)
[2021-02-19] MEDS ORDERED: TORAdol 30 mg Injection ONE (13:39)
[2021-02-19 13:44] LABS: Absolute Neutrophil Ct (ANC) 4.44 (1.4-6.9); BASOPHIL % 0.1 % (0.0-0.4); Basophil (Absolute #) 0.01 (0-0.4); Eosinophil % 2.2 % (0.00-5.0); Eosinophil (Absolute #) 0.15 (0-0.5); Hematocrit 41.3 % (35-47); Hemoglobin 13.3 gm/dl (12.0-16.0); Lymphocyte (Absolute #) 1.59 (1.0-4.6); Lymphocytes % 23.7 % (24.0-44.0); Mean Corpuscular Hemoglobin 30.9 pg (26-32); Mean Corpuscular Hgb Concent. 32.2 g/dl (32-36); Mean Platelet Volume 12.1 fl (7.5-11.0); Monocyte (Absolute #) 0.52 (0.0-1.3); Monocytes % 7.7 % (0.0-12.0); Neutrophil % 66.3 % (36.0-66.0); Platelet Count 170 K/mm3 (150-450); Red Cell Distribution Width 12.5 % (11.5-14.0); White Blood Count 6.7 K/mm3 (4.0-10.5)
[2021-02-19 13:53] LABS: Appearance CLOUDY (CLEAR); Bacteria RARE /HPF (NEGATIVE); Bilirubin NEGATIVE (NEGATIVE); Blood NEGATIVE Ery/ul (0-5); Epithelial Cells FEW /HPF (FEW); Glucose NEGATIVE (NEGATIVE); Ketones NEGATIVE (NEGATIVE); Leukocyte Esterase SMALL (NEGATIVE); Mucus SLIGHT /HPF (NEGATIVE); Nitrite NEGATIVE (NEGATIVE); Protein,Urine Dip NEGATIVE (Negative); RBC 0-2 /HPF (0-2); Specific Gravity 1.025 (1.005-1.025); Urobilinogen 2 mg/dL (0-1); WBC 0-2 /HPF (0-5)
[2021-02-19 13:56] LABS: ALBUMIN 4.3 g/dL (3.5-5.0); ALKALINE PHOSPHATASE 66 U/L (38-126); AMYLASE 58 U/L (30-110); ANION GAP 11.2 MEQ/L (5-15); BLOOD UREA NITROGEN 10 mg/dL (7-17); CHLORIDE 108 mmol/L (98-107); Calcium 9.3 mg/dL (8.4-10.2); Carbon Dioxide 23 mmol/L (22-30); Creatinine 1 0.69 mg/dL (0.52-1.04); EST GLOMERULAR FILTRATION RATE > 60.0 ML/MIN; Glucose 109 mg/dL (74-106); LIPASE 88 U/L (23-300); Potassium 4.1 mmol/L (3.5-5.1); SGOT/AST 21 U/L (14-36); SGPT/ALT 14 U/L (0-35); SODIUM 138 mmol/L (137-145); Total Protein 6.9 g/dL (6.3-8.2)
[2021-02-19 15:29] VITALS: BP 128/83; PULSE 78
--- NOTE | 2021-02-19 18:44 | XRAY ---
Indication: Right flank pain, painful urination, nausea, and vomiting. Multiple contiguous axial images obtained through the abdomen and pelvis without contrast using renal stone protocol. Comparison: September 21, 2020. Lung bases clear. Heart not enlarged. Again no renal calculus or evidence for obstructive uropathy in either system. Noncontrasted stomach and bowel loops nonobstructed with normal appendix. No free fluid/air. Remaining liver, gallbladder, pancreas, spleen, adrenal glands, kidneys, ureters, bladder, uterus, and aorta are unremarkable for noncontrast exam. Osseous structures intact. Impression: Continued negative renal calculus or evidence for acute uropathy. No new/acute findings. Comment: Preliminary interpretation was made by [facility]. No critical discrepancy.
== END 2021-02-19 15:29 | disposition home or self-care (01) ==
LOC: ED 12:54
DX: N23 Unspecified renal colic (principal)
CPT/HCPCS: 36000; 36415; 74176; 80053; 81001; 81025; 82150; 83605; 83690; 85025; 96360; 96374; 96375; 99284; J1170; J1885; J2405

== ENCOUNTER 2021-06-20 08:38 | Emergency (ER) | payer OTHER ==
[2021-06-20] MEDS ORDERED: Sodium Chloride 0.9% 1000 ML 1,000 ML IV STA (09:05)
[2021-06-20] MEDS ORDERED: TORAdol 30 mg Injection IV ONE (09:05)
[2021-06-20] MEDS ORDERED: TORAdol 30 mg Injection ONE (09:18)
[2021-06-20] MEDS ORDERED: Sodium Chloride 0.9% 1000 ML 1,000 ML ONE (09:18)
[2021-06-20 09:21] LABS: Absolute Neutrophil Ct (ANC) 3.76 (1.4-6.9); BASOPHIL % 0.2 % (0.0-0.4); Basophil (Absolute #) 0.01 (0-0.4); Eosinophil % 3.2 % (0.00-5.0); Eosinophil (Absolute #) 0.19 (0-0.5); Hematocrit 40.6 % (35-47); Hemoglobin 12.9 gm/dl (12.0-16.0); Lymphocyte (Absolute #) 1.34 (1.0-4.6); Lymphocytes % 22.8 % (24.0-44.0); Mean Cell Volume 96.9 fl (78-100); Mean Corpuscular Hemoglobin 30.8 pg (26-32); Mean Corpuscular Hgb Concent. 31.8 g/dl (32-36); Mean Platelet Volume 11.6 fl (7.5-11.0); Monocyte (Absolute #) 0.59 (0.0-1.3); Neutrophil % 63.8 % (36.0-66.0); Platelet Count 179 K/mm3 (150-450); Red Blood Count 4.19 M/mm3 (4.1-5.4); Red Cell Distribution Width 13.1 % (11.5-14.0); White Blood Count 5.9 K/mm3 (4.0-10.5)
--- NOTE | 2021-06-20 09:27 | ERPHSYRPT ---
- History of Present Illness Time Seen by Provider: 06/20/21 08:55 Historian: patient Patient Subjective Stated Complaint: abd pain, constipation, trouble urinating Triage Nursing Assessment: pt to ED c/o abd pain onset last night, constipation x 7 days. pt states she began probiotic 2 weeks ago and constipation devleoped within last week. taken mag citrate 2130 last night and has had few small BMs since. states sharp/cramping pain in LLQ that radiaites to dull pain across lower abd. tender to palp. Physician History: Patient is a 25-year-old female presents to our ED for evaluation of intermittent abdominal cramping left lower quadrant. Symptoms started last night. Patient states that she has been constipated for approximately 7 days. Patient began taking a probiotic 2 weeks ago. She explains that 1 week after taking the probiotics the constipation occurred. Patient states that she has not urinated. Patient concerned that there may be issues with her bladder as well. Patient self administered magnesium citrate at approximately 2130 last night. Patient states she subsequently had a few small bowel movements. Her pain has not subsided. Symptoms are mild to moderate in intensity. No specific worsening improving factors. Patient voices no other complaints or concerns at this time. Timing/Duration: yesterday Activities at Onset: none Quality: aching Abdominal Pain Onset Location: LLQ Pain Radiation: no radiation Severity of Pain-Max: moderate Severity of Pain-Current: mild Modifying Factors: Improves With: nothing Associated Symptoms: No chest pain, No diarrhea, No fever/chills, No nausea, No vomiting Previous symptoms: no prior history Allergies/Adverse Reactions: diphenhydramine HCl [From Benadryl] Adverse Reaction (Mild, Verified 06/20/21 09:04) "I FEEL LIKE I AM ON CRACK" doxycycline Adverse Reaction (Mild, Verified 06/20/21 09:04) Nausea promethazine HCl [From Phenergan] Adverse Reaction (Mild, Verified 06/20/21 09:04) "I FEEL LIKE I AM ON CRACK" Home Medications: Levothyroxine Sodium [Euthyrox] 1 ea DAILY 02/19/21 [History] Venlafaxine HCl 37.5 mg [Effexor 37.5 mg] 1 ea DAILY 02/19/21 [History] Hx Tetanus, Diphtheria Vaccination/Date Given: Yes Hx Influenza Vaccination/Date Given: No Hx Pneumococcal Vaccination/Date Given: No Immunizations Up to Date: No Travel Risk - International Travel Have you traveled outside of the country in past 3 weeks: No - Coronavirus Screening Are you exhibiting any of the following symptoms?: No Close contact with a COVID-19 positive Pt in past 14-21 Days: No - Vaccine Status Have you recieved a Covid-19 vaccination: Yes 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: [employer] - Review of Systems Constitutional: No Symptoms, No Fever, No Chills Eyes: No Symptoms Ears, Nose, & Throat: No Symptoms Respiratory: No Symptoms, No Cough, No Dyspnea Cardiac: No Symptoms, No Chest Pain, No Edema, No Syncope Abdominal/Gastrointestinal: No Symptoms, No Abdominal Pain, No Nausea, No Vomiting, No Diarrhea Genitourinary Symptoms: No Symptoms, No Dysuria Musculoskeletal: No Symptoms, No Back Pain, No Neck Pain Skin: No Symptoms, No Rash Neurological: No Symptoms, No Dizziness, No Focal Weakness, No Sensory Changes Psychological: No Symptoms Endocrine: No Symptoms Hematologic/Lymphatic: No Symptoms Immunological/Allergic: No Symptoms All Other Systems: Reviewed and Negative - Past Medical History Pertinent Past Medical History: Yes Neurological History: Migraines ENT History: No Pertinent History Cardiac History: No Pertinent History Respiratory History: No Pertinent History Endocrine Medical History: Hypoglycemia Musculoskeletal History: Arthritis, Degenerative Disk Disease, Other GI Medical History: No Pertinent History, Other History: No Pertinent History Psycho-Social History: Depression Female Reproductive Disorders: Endometriosis, Other Other Medical History: 2 prior vaginal deliveries. Endometriosis. PCOS. scoliosis to back - Past Surgical History Past Surgical History: Yes Neuro Surgical History: No Pertinent History Cardiac: No Pertinent History Respiratory: No Pertinent History Gastrointestinal: No Pertinent History Genitourinary: No Pertinent History Musculoskeletal: No Pertinent History Female Surgical History: Other Other Surgical History: D&C, LAP-endomet - Social History Smoking Status: Current every day smoker How long have you smoked: 7 years Exposure to second hand smoke: Yes Drug Use: marijuana Patient Lives Alone: No Significant Family History: no pertinent family hx - Female History Hx Last Menstrual Period: 3.5 weeks ago Hx Now: No - Nursing Vital Signs Nursing Vital Signs: Initial Vital Signs Temperature 97.2 F 06/20/21 08:49 Pulse Rate 86 06/20/21 08:49 Respiratory Rate 20 06/20/21 08:49 Blood Pressure 131/93 06/20/21 08:49 O2 Sat by Pulse Oximetry 98 06/20/21 08:49 Pain Scale Pain Intensity 6 - Physical Exam General Appearance: no apparent distress, alert Eye Exam: PERRL/EOMI, eyes nml inspection Ears, Nose, Throat Exam: normal ENT inspection, pharynx normal, moist mucous membranes Neck Exam: normal inspection, non-tender, supple, full range of motion Respiratory Exam: normal breath sounds, lungs clear, airway intact, No respiratory distress Cardiovascular Exam: regular rate/rhythm, normal heart sounds, normal peripheral pulses Gastrointestinal/Abdomen Exam: soft, tenderness (Tenderness palpation left lower quadrant. No guarding. No organomegaly. No pulsatile masses.), No mass Pelvic Exam: not done Back Exam: normal inspection, normal range of motion, No CVA tenderness, No vertebral tenderness Extremity Exam: normal inspection, normal range of motion, pelvis stable Neurologic Exam: alert, oriented x 3, cooperative, normal mood/affect, nml cerebellar function, sensation nml, No motor deficits Skin Exam: normal color, warm, dry Lymphatic Exam: No adenopathy SpO2 Interpretation: normal SpO2: 98 O2 Delivery: Room Air - Course Nursing assessment & vital signs reviewed: Yes - CT Exams Abdomen/Pelvis CT Interpretation: Tele-radiologist Report (New scattered colonic fecal debris with fluid leveling favoring diarrhea. Remaining CT abdomen pelvis without contrast exam is again negative.) - Radiology Ultrasound Exam Pelvis Ultrasound: discussed w/radiologist (Per pharmacist helper pelvic ultrasound negative for torsion. Essentially nonremarkable.) Ordered Tests: Active Orders 24 hr Category Date Time Status IV Insertion STAT Care 06/20/21 09:05 Active ABDOMEN AND PELVIS W/0 CONTRAS [CT] Stat Exams 06/20/21 09:06 Completed PELVIC [US] Stat Exams 06/20/21 10:45 Ordered CBC W DIFF Stat Lab 06/20/21 09:05 Completed CMP Stat Lab 06/20/21 09:05 Completed HCG,QUALITATIVE URINE Stat Lab 06/20/21 09:43 Completed LIPASE Stat Lab 06/20/21 09:05 Completed UA W/RFX UR CULTURE Stat Lab 06/20/21 09:43 Completed Wet Prep Stat Lab 06/20/21 Ordered Medication Summary Discontinued Medications Generic Name Dose Route Start Last Admin Trade Name Freq PRN Reason Stop Dose Admin Dicyclomine HCl 20 mg 06/20/21 10:25 06/20/21 10:29 Bentyl 20 Mg PO 06/20/21 10:26 20 mg ONCE STA Administration Dicyclomine HCl Confirm 06/20/21 10:28 Bentyl 20 Mg Administered 06/20/21 10:29 Dose 20 mg .ROUTE .STK-MED ONE Sodium Chloride 1,000 mls @ 999 mls/hr 06/20/21 09:05 06/20/21 10:26 Sodium Chloride 0.9% 1000 Ml IV 06/20/21 10:05 Infused .Q1H1M STA Infusion Sodium Chloride Confirm 06/20/21 09:18 Sodium Chloride 0.9% 1000 Ml Administered 06/20/21 09:19 Dose 1,000 mls @ ud .ROUTE .STK-MED ONE Ketorolac Tromethamine 30 mg 06/20/21 09:05 06/20/21 09:20 Toradol 30 Mg Injection IV 06/20/21 09:06 30 mg STAT ONE Administration Ketorolac Tromethamine Confirm 06/20/21 09:18 Toradol 30 Mg Injection Administered 06/20/21 09:19 Dose 30 mg .ROUTE .STK-MED ONE Lab/Rad Data: Laboratory Result Diagrams 06/20/21 09:05 06/20/21 09:05 Laboratory Results 06/20/21 06/20/21 06/20/21 Range/Units 09:43 09:43 09:05 WBC (4.0-10.5) K/mm3 RBC (4.1-5.4) M/mm3 Hgb (12.0-16.0) gm/dl Hct (35-47) % MCV (78-100) fl MCH (26-32) pg MCHC (32-36) g/dl RDW (11.5-14.0) % Plt Count (150-450) K/mm3 MPV (7.5-11.0) fl Gran % (36.0-66.0) % Eos # (Auto) (0-0.5) Absolute Lymphs (auto) (1.0-4.6) Absolute Monos (auto) (0.0-1.3) Lymphocytes % (24.0-44.0) % Monocytes % (0.0-12.0) % Eosinophils % (0.00-5.0) % Basophils % (0.0-0.4) % Absolute Granulocytes (1.4-6.9) Basophils # (0-0.4) Sodium 138 (137-145) mmol/L Potassium 4.0 (3.5-5.1) mmol/L Chloride 105 (98-107) mmol/L Carbon Dioxide 26 (22-30) mmol/L Anion Gap 11.5 (5-15) MEQ/L BUN 5 L (7-17) mg/dL Creatinine 0.59 (0.52-1.04) mg/dL Estimated GFR > 60.0 ML/MIN Glucose 104 (74-106) mg/dL Calcium 9.6 (8.4-10.2) mg/dL Total Bilirubin 0.30 (0.2-1.3) mg/dL AST 24 (14-36) U/L ALT 18 (0-35) U/L Alkaline Phosphatase 81 (38-126) U/L Serum Total Protein 6.8 (6.3-8.2) g/dL Albumin 4.2 (3.5-5.0) g/dL Lipase 58 (23-300) U/L Urine Color STRAW (YELLOW) Urine Appearance CLEAR (CLEAR) Urine pH 8.0 (5-6) Ur Specific Solon 1.001 (1.005-1.025) Urine Protein NEGATIVE (Negative) Urine Ketones NEGATIVE (NEGATIVE) Urine Blood NEGATIVE (0-5) Sen/ul Urine Nitrite NEGATIVE (NEGATIVE) Urine Bilirubin NEGATIVE (NEGATIVE) Urine Urobilinogen NEGATIVE (0-1) mg/dL Ur Leukocyte Esterase NEGATIVE (NEGATIVE) Urine WBC (Auto) NONE (0-5) /HPF Urine RBC (Auto) NONE (0-2) /HPF U Epithel Cells (Auto) NONE (FEW) /HPF Urine Bacteria (Auto) NONE (NEGATIVE) /HPF Urine Mucus (Auto) SLIGHT (NEGATIVE) /HPF Urine Culture Reflexed NO (NO) Urine Glucose NEGATIVE (NEGATIVE) mg/dL Urine HCG, Qual NEGATIVE (Negative) 06/20/21 Range/Units 09:05 WBC 5.9 (4.0-10.5) K/mm3 RBC 4.19 (4.1-5.4) M/mm3 Hgb 12.9 (12.0-16.0) gm/dl Hct 40.6 (35-47) % MCV 96.9 (78-100) fl MCH 30.8 (26-32) pg MCHC 31.8 L (32-36) g/dl RDW 13.1 (11.5-14.0) % Plt Count 179 (150-450) K/mm3 MPV 11.6 H (7.5-11.0) fl Gran % 63.8 (36.0-66.0) % Eos # (Auto) 0.19 (0-0.5) Absolute Lymphs (auto) 1.34 (1.0-4.6) Absolute Monos (auto) 0.59 (0.0-1.3) Lymphocytes % 22.8 L (24.0-44.0) % Monocytes % 10.0 (0.0-12.0) % Eosinophils % 3.2 (0.00-5.0) % Basophils % 0.2 (0.0-0.4) % Absolute Granulocytes 3.76 (1.4-6.9) Basophils # 0.01 (0-0.4) Sodium (137-145) mmol/L Potassium (3.5-5.1) mmol/L Chloride (98-107) mmol/L Carbon Dioxide (22-30) mmol/L Anion Gap (5-15) MEQ/L BUN (7-17) mg/dL Creatinine (0.52-1.04) mg/dL Estimated GFR ML/MIN Glucose (74-106) mg/dL Calcium (8.4-10.2) mg/dL Total Bilirubin (0.2-1.3) mg/dL AST (14-36) U/L ALT (0-35) U/L Alkaline Phosphatase (38-126) U/L Serum Total Protein (6.3-8.2) g/dL Albumin (3.5-5.0) g/dL Lipase (23-300) U/L Urine Color (YELLOW) Urine Appearance (CLEAR) Urine pH (5-6) Ur Specific Solon (1.005-1.025) Urine Protein (Negative) Urine Ketones (NEGATIVE) Urine Blood (0-5) Sen/ul Urine Nitrite (NEGATIVE) Urine Bilirubin (NEGATIVE) Urine Urobilinogen (0-1) mg/dL Ur Leukocyte Esterase (NEGATIVE) Urine WBC (Auto) (0-5) /HPF Urine RBC (Auto) (0-2) /HPF U Epithel Cells (Auto) (FEW) /HPF Urine Bacteria (Auto) (NEGATIVE) /HPF Urine Mucus (Auto) (NEGATIVE) /HPF Urine Culture Reflexed (NO) Urine Glucose (NEGATIVE) mg/dL Urine HCG, Qual (Negative) - Progress Progress: improved Progress Note: CT scan abdomen pelvis essentially nonremarkable. Patient expressed concern with possible STI. Patient states she has had chlamydia in the past and wants to be checked. GC chlamydia ordered in the urine. Wet prep ordered. We will perform a pelvic exam at this time. Ultrasound ordered to rule out ovarian torsion. 06/20/21 10:47 06/20/21 11:20 Patient states she does not want to wait for the results of the pelvic exam/wet prep/GC chlamydia urine. She prefers to go home. She does not want to be pr etreated. Or treated prophylactically. Patient prefers to obtain the results first. We will send patient home and await the results. If positive we will call in antibiotics for patient. Patient agrees to follow-up with primary care doctor within 48 hours for reevaluation. Portions of this note were created with voice recognition technology. There may be grammatical, spelling, punctuation or sound alike errors 06/20/21 11:21 Patient abdominal pain resolved with administration of Bentyl. We will forward a prescription to patient's pharmacy. Counseled pt/family regarding: lab results, diagnosis, need for follow-up, rad results - Departure Departure Disposition: Home Clinical Impression: sti exposure, intestinal colic Condition: Stable Critical Care Time: No Referrals: KENYON ANDERSON [Primary Care Provider] - Additional Instructions: Discharge/Care Plan NAOMI CASTRO was seen on 06/20/21 in the Emergency Room. The patient was counseled regarding Diagnosis,Lab results, Imaging studies, need for follow up and when to return to the Emergency Room. Prescriptions given: Discharge Note I have spoken with the patient and/or caregivers. I have explained the patient's condition, diagnosis and treatment plan based on the information available to me at this time. I have answered the patient's and/or caregiver's questions and addressed any concerns. The patient and/or caregivers have as good understanding of the patient's diagnosis, condition and treatment plan as can be expected at this point. The vital signs have been stable. The patient's condition is stable and appropriate for discharge from the emergency department. The patient will pursue further outpatient evaluation with the primary care physician or other designated or consulting physician as outlined in the discharge instructions. The patient and/or caregivers are agreeable to this plan of care and follow-up instructions have been explained in detail. The patient and/or caregivers have received these instruction. The patient/and or caregivers are aware that any significant change in condition or worsening of symptoms should prompt an immediate return to this or the closest emergency department or call 911. Prescriptions: Dicyclomine HCl 20 mg [Bentyl 20 mg] 20 mg PO TID 3 Days #9 tablet
[2021-06-20 09:34] LABS: ALBUMIN 4.2 g/dL (3.5-5.0); ALKALINE PHOSPHATASE 81 U/L (38-126); ANION GAP 11.5 MEQ/L (5-15); BLOOD UREA NITROGEN 5 mg/dL (7-17); CHLORIDE 105 mmol/L (98-107); Calcium 9.6 mg/dL (8.4-10.2); Carbon Dioxide 26 mmol/L (22-30); Creatinine 1 0.59 mg/dL (0.52-1.04); EST GLOMERULAR FILTRATION RATE > 60.0 ML/MIN; Glucose 104 mg/dL (74-106); LIPASE 58 U/L (23-300); SGOT/AST 24 U/L (14-36); SGPT/ALT 18 U/L (0-35); SODIUM 138 mmol/L (137-145); Total Protein 6.8 g/dL (6.3-8.2)
[2021-06-20 09:48] LABS: Appearance CLEAR (CLEAR); Bilirubin NEGATIVE (NEGATIVE); Blood NEGATIVE Ery/ul (0-5); Glucose NEGATIVE (NEGATIVE); Ketones NEGATIVE (NEGATIVE); Leukocyte Esterase NEGATIVE (NEGATIVE); Mucus SLIGHT /HPF (NEGATIVE); Nitrite NEGATIVE (NEGATIVE); Protein,Urine Dip NEGATIVE (Negative); Specific Gravity 1.001 (1.005-1.025); Urobilinogen NEGATIVE mg/dL (0-1)
--- NOTE | 2021-06-20 10:10 | XRAY ---
Indication: Left lower quadrant pain, nausea, and constipation. Multiple contiguous axial images obtained through the abdomen and pelvis without contrast. Comparison: February 19, 2021. Lung bases remain clear. Heart not enlarged. Stomach mildly distended with food/fluid. Noncontrasted stomach and bowel loops nonobstructed again with normal appendix. No bowel wall thickening or inflammatory changes. Colon now demonstrates mild scattered fecal debris with fluid leveling throughout favoring diarrhea. No free fluid/air. Remaining liver, gallbladder, pancreas, spleen, adrenal glands, kidneys, ureters, bladder, uterus, and aorta are unremarkable for noncontrast exam. Osseous structures intact. Impression: 1. New scattered colonic fecal debris with fluid leveling favoring diarrhea. 2. Remaining remaining CT abdomen/pelvis without contrast exam is again negative.
[2021-06-20 10:24] VITALS: O2SAT 98
[2021-06-20] MEDS ORDERED: BENTYL 20 MG PO STA (10:25)
[2021-06-20] MEDS ORDERED: BENTYL 20 MG ONE (10:28)
[2021-06-20 11:26] VITALS: BP 141/84; PULSE 92
--- NOTE | 2021-06-20 11:29 | XRAY ---
Indication: Left pelvic pain. Torsion. Two-dimensional transabdominal pelvic sonogram performed. Comparison: January 12, 2016. Uterus remains anteverted measuring 10.5 x 4.9 x 6.3 cm. Myometrium homogeneous. Endometrial stripe measures 7 mm. Previous IUD has been removed. No endometrial cavity mass or fluid collection. Right ovary measures 1.7 x 3.5 x 1.7 cm and the left measures 2.0 x 0.9 x 2.4 cm. Normal perfusion bilaterally. No suspicious adnexal mass or free fluid. Impression: Continued negative transabdominal pelvic sonogram.
[2021-06-20 12:13] LABS: Bacteria Few; Clue Cells None Seen; Trichomonas None Seen
[2021-06-20 12:14] LABS: Red Blood Cells None Seen; White Blood Cells Few; Yeast None Seen
[2021-06-20 13:57] LABS: CHLAMYDIA DNA NOT DETECTED (NEGATIVE); GC DNA Probe NOT DETECTED (NEGATIVE)
== END 2021-06-20 11:30 | disposition home or self-care (01) ==
LOC: ED 08:38
DX: Z20.2 Contact with and (suspected) exposure to infections with a predominantly sexual mode of transmission (principal); R10.84 Generalized abdominal pain; R07.9 Chest pain, unspecified; K59.00 Constipation, unspecified; R10.32 Left lower quadrant pain; Z79.899 Other long term (current) drug therapy; E16.2 Hypoglycemia, unspecified; R10.83 Colic
CPT/HCPCS: 36000; 36415; 74176; 76856; 80053; 81001; 83690; 84703; 85025; 87210; 87491; 87591; 96360; 96374; 99284; J1885; A9270-GY

== ENCOUNTER 2021-08-10 15:48 | Emergency (ER) | payer OTHER ==
[2021-08-10 16:00] VITALS: BP 144/84; PULSE 92; O2SAT 97
--- NOTE | 2021-08-10 16:35 | XRAY ---
Indication: Pain following fall. Comparison: None 3 view right knee demonstrates normal bones, articulation, and soft tissues.
--- NOTE | 2021-08-10 16:53 | ERPHSYRPT ---
- History of Present Illness Time Seen by Provider: 08/10/21 15:58 Source: patient Exam Limitations: no limitations Patient Subjective Stated Complaint: pt here for right knee pain after slipping in kitchen 3-4 days ago Triage Nursing Assessment: pt alert, walked in with a limp, resp easy, face mask in place has yellow bruising to right knee Physician History: 25 years old female presented in the ER with chief complaint of right knee pain for the last 3 to 4 days after she slipped and fell in the kitchen hitting her right knee against the floor. Patient is able to ambulate but still hurts especially on the lower knee area without any obvious swelling but has bruising. Pain is sharp, more with movements and better with being still. No injury anywhere else. Method of Injury: fell Occurred: days ago (3) Quality: sharpness Severity of Pain-Max: moderate Severity of Pain-Current: moderate Lower Extremities Pain: knee: right Modifying Factors: Improves With: immobilization, rest. Worsens With: movement Associated Symptoms: none Allergies/Adverse Reactions: diphenhydramine HCl [From Benadryl] Adverse Reaction (Mild, Verified 08/10/21 16:02) "I FEEL LIKE I AM ON CRACK" doxycycline Adverse Reaction (Mild, Verified 08/10/21 16:02) Nausea promethazine HCl [From Phenergan] Adverse Reaction (Mild, Verified 08/10/21 16:02) "I FEEL LIKE I AM ON CRACK" Home Medications: Levothyroxine Sodium [Euthyrox] 1 ea DAILY 02/19/21 [History] Venlafaxine HCl 37.5 mg [Effexor 37.5 mg] 1 ea DAILY 02/19/21 [History] Hx Tetanus, Diphtheria Vaccination/Date Given: No Hx Influenza Vaccination/Date Given: Yes Hx Pneumococcal Vaccination/Date Given: No Immunizations Up to Date: Yes Travel Risk - International Travel Have you traveled outside of the country in past 3 weeks: No - Coronavirus Screening Are you exhibiting any of the following symptoms?: No Close contact with a COVID-19 positive Pt in past 14-21 Days: No - Vaccine Status Have you recieved a Covid-19 vaccination: Yes 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[employer] - Vaccination Dates Dates if Unknown: 2020 - Review of Systems Constitutional: No Symptoms Eyes: No Symptoms Ears, Nose, & Throat: No Symptoms Respiratory: No Symptoms Cardiac: No Symptoms Abdominal/Gastrointestinal: No Symptoms Musculoskeletal: Injury, Joint Pain Skin: No Symptoms Neurological: No Symptoms Psychological: No Symptoms Endocrine: No Symptoms - Past Medical History Pertinent Past Medical History: Yes Neurological History: Migraines ENT History: No Pertinent History Cardiac History: No Pertinent History Respiratory History: No Pertinent History Endocrine Medical History: Hypoglycemia Musculoskeletal History: Arthritis, Degenerative Disk Disease, Other GI Medical History: No Pertinent History, Other History: No Pertinent History Psycho-Social History: Depression Female Reproductive Disorders: Endometriosis, Other Other Medical History: 2 prior vaginal deliveries. Endometriosis. PCOS. scoliosis to back - Past Surgical History Past Surgical History: Yes Neuro Surgical History: No Pertinent History Cardiac: No Pertinent History Respiratory: No Pertinent History Gastrointestinal: No Pertinent History Genitourinary: No Pertinent History Musculoskeletal: No Pertinent History Female Surgical History: Other Other Surgical History: D&C, LAP-endomet - Social History Smoking Status: Current every day smoker How long have you smoked: 7 years Exposure to second hand smoke: Yes Drug Use: marijuana Patient Lives Alone: No Significant Family History: no pertinent family hx - Female History Hx Last Menstrual Period: 2 weeks ago Hx Now: No - Nursing Vital Signs Nursing Vital Signs: Initial Vital Signs Temperature 97.8 F 08/10/21 15:58 Pulse Rate 92 H 08/10/21 15:58 Respiratory Rate 18 08/10/21 15:58 Blood Pressure 144/84 08/10/21 15:58 O2 Sat by Pulse Oximetry 97 08/10/21 15:58 Pain Scale Pain Intensity 4 - Physical Exam General Appearance: no apparent distress, alert Eyes, Ears, Nose, Throat Exam: normal ENT inspection Neck Exam: normal inspection, supple, full range of motion Cardiovascular/Respiratory Exam: normal breath sounds, regular rate/rhythm Hips Exam: bilateral: non-tender, normal inspection Legs Exam: bilateral leg: non-tender, normal inspection, normal range of motion, no evidence of injury Knees Exam: right knee: bone tenderness (Lower knee/tibial tuberosity with bruising no obvious swelling/deformity), pain, soft tissue tenderness, swelling, left knee: non-tender, normal inspection, no evidence of injury, bilateral knee: normal range of motion Ankle Exam: bilateral ankle: non-tender, normal inspection, normal range of motion Neuro/Tendon Exam: normal sensation, normal motor functions, normal tendon functions Mental Status Exam: alert, oriented x 3, cooperative Skin Exam: normal color SpO2 Interpretation: normal SpO2: 97 O2 Delivery: Room Air Ordered Tests: Active Orders 24 hr Category Date Time Status KNEE (3 VIEWS) Stat Exams 08/10/21 Completed - Progress Progress: improved Progress Note: 08/10/21 16:51 She is given Toradol for symptomatic relief. X-rays negative for fracture dislocation. I believe patient has contusion, recommended NSAIDs, weightbearing as tolerated and outpatient follow-up. Counseled pt/family regarding: diagnosis, need for follow-up, rad results - Departure Departure Disposition: Home Clinical Impression: Contusion of knee, right Qualifiers: Encounter type: initial encounter Qualified Code(s): S80.01XA - Contusion of right knee, initial encounter Condition: Stable Critical Care Time: No Referrals: KENYON ANDERSON [Primary Care Provider] - Follow up/PCP as directed BHUMI - JAYY ALY NP [NON-STAFF PHY W/O PRIVILEGES] - Follow up/PCP as directed Instructions: Knee Sprain (DC), Knee Pain (DC) Additional Instructions: Take Tylenol/ibuprofen as needed. Avoid exertional activities. Apply ice. Follow-up with primary care/orthopedic surgery for reevaluation. Return to ER for any worsening. Prescriptions: Ibuprofen 600 mg PO Q6HPRN PRN 10 Days #20 tablet PRN Reason: Pain
== END 2021-08-10 16:55 | disposition home or self-care (01) ==
LOC: ED 15:48
DX: S80.01XA Contusion of right knee, initial encounter (principal); M25.561 Pain in right knee; W18.49XA Other slipping, tripping and stumbling without falling, initial encounter; Y93.89 Activity, other specified; Y92.89 Other specified places as the place of occurrence of the external cause
CPT/HCPCS: 73562; 99283

== ENCOUNTER 2022-03-10 20:45 | Emergency (ER) | payer OTHER ==
[2022-03-10 21:13] VITALS: O2SAT 100
--- NOTE | 2022-03-10 21:20 | ERPHSYRPT ---
- History of Present Illness Time Seen by Provider: 03/10/22 21:14 Historian: patient Exam Limitations: no limitations Patient Subjective Stated Complaint: Patient is c/o left sided abdominal pain that started this morning and has become increasingly worse as the day goes on. Patient states she went to the [facility] ED just prior to coming here and they told her that her WBC was high but couldn't give her a reason for the abnormal lab or the abdominal pain. Triage Nursing Assessment: Patient ambulated back to ED hunched over holding her abdomen. Facial grimacing noted. She is alert and oriented and answering questions appropriately. Abdomen soft with hypoactive bowel sounds noted. Physician History: Pt had onset of abd pain left flank this am and had w/u at [facility] with [facility] and found elevated WBC and she thinks she got injection of antibiotics and IVF there and then came here. Tender left lower to med abd on exam denies fever or urinary symptoms or abd procedure other than remote D&C. denies vaginal discharge or bleeding. Hx of prior renal stones but none on outside CT report which also shows only thickened uterus ( to f/u PMD) Timing/Duration: today Activities at Onset: none Quality: fullness, sharpness, stabbing Abdominal Pain Onset Location: LLQ, periumbilical, flank Pain Radiation: back Severity of Pain-Max: moderate Severity of Pain-Current: moderate Associated Symptoms: back, loss of appetite Previous symptoms: no prior history Allergies/Adverse Reactions: diphenhydramine HCl [From Benadryl] Adverse Reaction (Mild, Verified 03/10/22 20:57) "I FEEL LIKE I AM ON CRACK" doxycycline Adverse Reaction (Mild, Verified 03/10/22 20:57) Nausea promethazine HCl [From Phenergan] Adverse Reaction (Mild, Verified 03/10/22 20:57) "I FEEL LIKE I AM ON CRACK" Home Medications: Levothyroxine Sodium [Euthyrox] 1 ea DAILY 02/19/21 [History] Venlafaxine HCl 37.5 mg [Effexor 37.5 mg] 75 mg DAILY 02/19/21 [History] Hx Tetanus, Diphtheria Vaccination/Date Given: No Hx Influenza Vaccination/Date Given: Yes Hx Pneumococcal Vaccination/Date Given: No Immunizations Up to Date: Yes Travel Risk - International Travel Have you traveled outside of the country in past 3 weeks: No - Coronavirus Screening Are you exhibiting any of the following symptoms?: Yes Symptoms: Vomiting/Diarrhea Close contact with a COVID-19 positive Pt in past 14-21 Days: No - Vaccine Status Have you recieved a Covid-19 vaccination: Yes [place]: [email or web address] - Vaccination Dates Dates if Unknown: 2020 - Review of Systems Constitutional: No Fever, No Chills Eyes: No Symptoms Ears, Nose, & Throat: No Symptoms Respiratory: No Cough, No Dyspnea Cardiac: No Chest Pain, No Edema, No Syncope Abdominal/Gastrointestinal: Abdominal Pain, Nausea, No Vomiting, No Diarrhea Genitourinary Symptoms: No Dysuria Musculoskeletal: Back Pain, No Neck Pain Skin: No Rash Neurological: No Dizziness, No Focal Weakness, No Sensory Changes Psychological: No Symptoms Endocrine: No Symptoms Hematologic/Lymphatic: No Symptoms Immunological/Allergic: No Symptoms All Other Systems: Reviewed and Negative - Past Medical History Pertinent Past Medical History: Yes Neurological History: Migraines ENT History: No Pertinent History Cardiac History: No Pertinent History Respiratory History: No Pertinent History Endocrine Medical History: Hypoglycemia Musculoskeletal History: Arthritis, Degenerative Disk Disease, Other GI Medical History: No Pertinent History, Other History: Other Psycho-Social History: Depression Female Reproductive Disorders: Endometriosis, Other Other Medical History: 2 prior vaginal deliveries, Kidney Stones, Endometriosis, PCOS, scoliosis to back - Past Surgical History Past Surgical History: Yes Neuro Surgical History: No Pertinent History Cardiac: No Pertinent History Respiratory: No Pertinent History Gastrointestinal: No Pertinent History Genitourinary: No Pertinent History Musculoskeletal: No Pertinent History Female Surgical History: Other Other Surgical History: D&C, LAP-endomet - Social History Smoking Status: Current every day smoker How long have you smoked: 12 years Exposure to second hand smoke: Yes Drug Use: none Patient Lives Alone: No Significant Family History: no pertinent family hx - Female History Hx Last Menstrual Period: 2 weeks ago Hx Now: No ("Haven't had sex in 5 years") - Nursing Vital Signs Nursing Vital Signs: Initial Vital Signs Temperature 98.2 F 03/10/22 20:59 Pulse Rate 96 H 03/10/22 20:59 Respiratory Rate 20 03/10/22 20:59 Blood Pressure 119/85 03/10/22 20:59 O2 Sat by Pulse Oximetry 100 03/10/22 20:59 Pain Scale Pain Intensity 6 - Physical Exam General Appearance: no apparent distress, alert Eye Exam: PERRL/EOMI, eyes nml inspection Ears, Nose, Throat Exam: normal ENT inspection, pharynx normal, moist mucous membranes Neck Exam: normal inspection, non-tender, supple, full range of motion Respiratory Exam: normal breath sounds, lungs clear, No respiratory distress Cardiovascular Exam: regular rate/rhythm, normal heart sounds Gastrointestinal/Abdomen Exam: soft, tenderness, guarding, No mass Pelvic Exam: deferred Rectal Exam: deferred Back Exam: normal inspection, normal range of motion, No CVA tenderness, No v ertebral tenderness Extremity Exam: normal inspection, normal range of motion, pelvis stable Neurologic Exam: alert, oriented x 3, cooperative, normal mood/affect, nml cerebellar function, sensation nml, No motor deficits Skin Exam: normal color, warm, dry SpO2 Interpretation: normal SpO2: 100 O2 Delivery: Room Air - Course Nursing assessment & vital signs reviewed: Yes - Radiology Ultrasound Exam Pelvis Ultrasound: No Torsion/Nml Flow Ordered Tests: Active Orders 24 hr Category Date Time Status IV Insertion STAT Care 03/10/22 21:21 Active PELVIS TRANS VAGINAL [US] Stat Exams 03/10/22 21:48 Taken AMYLASE Stat Lab 03/10/22 21:54 Completed CBC W DIFF Stat Lab 03/10/22 21:54 Completed CMP Stat Lab 03/10/22 21:54 Completed HCG QUALITATIVE,SERUM Stat Lab 03/10/22 21:54 Completed LIPASE Stat Lab 03/10/22 21:54 Completed Lactic Acid Stat Lab 03/10/22 21:52 Completed UA W/RFX CULTURE Stat Lab 03/10/22 21:42 Completed Medication Summary Discontinued Medications Generic Name Dose Route Start Last Admin Trade Name Mauro PRN Reason Stop Dose Admin Azithromycin 1,000 mg 03/10/22 23:06 Azithromycin 250 Mg Tablet PO 03/10/22 23:07 STAT ONE Famotidine 20 mg 03/10/22 21:21 03/10/22 22:10 Famotidine 20 Mg/1 Vial IV 03/10/22 21:22 Not Given STAT ONE Hydromorphone HCl 1 mg 03/10/22 21:21 03/10/22 22:13 Hydromorphone 1 Mg/1ml Inj 1 Mg/Ml Syringe IV 03/10/22 21:22 1 mg STAT ONE Administration Hydromorphone HCl Confirm 03/10/22 22:12 Hydromorphone 1 Mg/1ml Inj 1 Mg/Ml Syringe Administered 03/10/22 22:13 Dose 1 mg .ROUTE .[employer] ONE Sodium Chloride 1,000 mls @ 999 mls/hr 03/10/22 21:21 03/10/22 22:10 Sodium Chloride 0.9% 1000 Ml IV 03/10/22 22:21 Not Given .Q1H1M STA Ondansetron HCl 4 mg 03/10/22 21:21 03/10/22 22:10 Ondansetron Hcl 4 Mg/2 Ml Vial IV 03/10/22 21:22 Not Given STAT ONE Ondansetron HCl 4 mg 03/10/22 22:11 03/10/22 22:12 Zofran 4 Mg/Udtablet Orally Disintegrating PO 03/10/22 22:12 4 mg STAT ONE Administration Ondansetron HCl Confirm 03/10/22 22:11 Zofran 4 Mg/Udtablet Orally Disintegrating Administered 03/10/22 22:12 Dose 4 mg .ROUTE .[employer] ONE Lab/Rad Data: Laboratory Result Diagrams 03/10/22 21:54 03/10/22 21:54 Laboratory Results 03/10/22 03/10/22 03/10/22 Range/Units 21:54 21:54 21:54 WBC 17.1 H (4.0-10.5) x10^3/uL RBC 4.20 (4.1-5.4) x10^6/uL Hgb 12.5 (12.0-16.0) g/dL Hct 39.1 (35-47) % MCV 93.1 (78-100) fL MCH 29.8 (26-32) pg MCHC 32.0 (32-36) g/dL RDW 14.1 H (11.5-14.0) % Plt Count 212 (150-450) x10^3/uL MPV 10.8 (7.5-11.0) fL Gran % 85.2 H (36.0-66.0) % Immature Gran % (Auto) 0.3 (0.00-0.4) % Nucleat RBC Rel Count 0.0 (0.00-0.1) % Eos # (Auto) 0.10 (0-0.5) x10^3/uL Immature Gran # (Auto) 0.05 H (0.00-0.03) x10^3u/L Absolute Lymphs (auto) 1.35 (1.0-4.6) x10^3/uL Absolute Monos (auto) 0.97 (0.0-1.3) x10^3/uL Absolute Nucleated RBC 0.00 (0.00-0.01) x10^3u/L Lymphocytes % 7.9 L (24.0-44.0) % Monocytes % 5.7 (0.0-12.0) % Eosinophils % 0.6 (0.00-5.0) % Basophils % 0.3 (0.0-0.4) % Absolute Granulocytes 14.60 H (1.4-6.9) x10^3/uL Basophils # 0.05 (0-0.4) x10^3/uL Sodium 137 (137-145) mmol/L Potassium 4.1 (3.5-5.1) mmol/L Chloride 106 (98-107) mmol/L Carbon Dioxide 23 (22-30) mmol/L Anion Gap 12.9 (5-15) MEQ/L BUN 11 (7-17) mg/dL Creatinine 0.63 (0.52-1.04) mg/dL Estimated GFR > 60.0 ML/MIN Glucose 99 (74-106) mg/dL Lactic Acid (0.4-2.0) Calcium 9.3 (8.4-10.2) mg/dL Total Bilirubin 0.40 (0.2-1.3) mg/dL AST 26 (14-36) U/L ALT 19 (0-35) U/L Alkaline Phosphatase 92 (38-126) U/L Serum Total Protein 6.8 (6.3-8.2) g/dL Albumin 4.3 (3.5-5.0) g/dL Amylase 79 (30-110) U/L Lipase 90 (23-300) U/L Serum , Qual NEGATIVE (Negative) Urinalys Dipstick Clnc Urine Color (YELLOW) Urine Appearance (CLEAR) Urine pH (5-6) Ur Specific [place] (1.005-1.025) POC Urine Protein Conf (Negative) Urine Ketones (NEGATIVE) Urine Nitrite (NEGATIVE) Urine Bilirubin (NEGATIVE) Urine Urobilinogen (0-1) mg/dL Urine Leukocytes (NEGATIVE) Urine WBC (Auto) (0-5) /HPF Urine RBC (Auto) (0-2) /HPF U Epithel Cells (Auto) (FEW) /HPF Urine Bacteria (Auto) (NEGATIVE) /HPF Urine RBC (0-5) Sen/ul Urine Mucus (Auto) (NEGATIVE) /HPF Ur Culture Indicated? Urine Glucose (NEGATIVE) mg/dL 03/10/22 03/10/22 Range/Units 21:52 21:42 WBC (4.0-10.5) x10^3/uL RBC (4.1-5.4) x10^6/uL Hgb (12.0-16.0) g/dL Hct (35-47) % MCV (78-100) fL MCH (26-32) pg MCHC (32-36) g/dL RDW (11.5-14.0) % Plt Count (150-450) x10^3/uL MPV (7.5-11.0) fL Gran % (36.0-66.0) % Immature Gran % (Auto) (0.00-0.4) % Nucleat RBC Rel Count (0.00-0.1) % Eos # (Auto) (0-0.5) x10^3/uL Immature Gran # (Auto) (0.00-0.03) x10^3u/L Absolute Lymphs (auto) (1.0-4.6) x10^3/uL Absolute Monos (auto) (0.0-1.3) x10^3/uL Absolute Nucleated RBC (0.00-0.01) x10^3u/L Lymphocytes % (24.0-44.0) % Monocytes % (0.0-12.0) % Eosinophils % (0.00-5.0) % Basophils % (0.0-0.4) % Absolute Granulocytes (1.4-6.9) x10^3/uL Basophils # (0-0.4) x10^3/uL Sodium (137-145) mmol/L Potassium (3.5-5.1) mmol/L Chloride (98-107) mmol/L Carbon Dioxide (22-30) mmol/L Anion Gap (5-15) MEQ/L BUN (7-17) mg/dL Creatinine (0.52-1.04) mg/dL Estimated GFR ML/MIN Glucose (74-106) mg/dL Lactic Acid 0.9 (0.4-2.0) Calcium (8.4-10.2) mg/dL Total Bilirubin (0.2-1.3) mg/dL AST (14-36) U/L ALT (0-35) U/L Alkaline Phosphatase (38-126) U/L Serum Total Protein (6.3-8.2) g/dL Albumin (3.5-5.0) g/dL Amylase (30-110) U/L Lipase (23-300) U/L Serum , Qual (Negative) Urinalys Dipstick Clnc MAIN LAB Urine Color YELLOW (YELLOW) Urine Appearance CLEAR (CLEAR) Urine pH 8.5 (5-6) Ur Specific [place] 1.020 (1.005-1.025) POC Urine Protein Conf NEGATIVE (Negative) Urine Ketones NEGATIVE (NEGATIVE) Urine Nitrite NEGATIVE (NEGATIVE) Urine Bilirubin NEGATIVE (NEGATIVE) Urine Urobilinogen 0.2 (0-1) mg/dL Urine Leukocytes NEGATIVE (NEGATIVE) Urine WBC (Auto) NONE (0-5) /HPF Urine RBC (Auto) NONE (0-2) /HPF U Epithel Cells (Auto) FEW (FEW) /HPF Urine Bacteria (Auto) NONE (NEGATIVE) /HPF Urine RBC NEGATIVE (0-5) Sen/ul Urine Mucus (Auto) SLIGHT (NEGATIVE) /HPF Ur Culture Indicated? NO Urine Glucose NEGATIVE (NEGATIVE) mg/dL - Progress Progress: improved, re-examined Progress Note: 03/10/22 22:31 pt unable to tolerate IV will give meds PO and IM and check US to rule out left torsion 03/10/22 22:32 outside WBC 17,000 and given rocephin. Outside HCG was negative. outside lipase normal. 03/10/22 23:08 pt advised of the limitations of testing performed and that undetected serious pathology could still be evolving - she understands, chooses outpt f/u rather than further eval in ER and has the capacity to make this choice. 03/10/22 23:11 will treat for GC/Chlam also discussed with pt. and for her to f/u. Counseled pt/family regarding: lab results, diagnosis, need for follow-up, rad results - Departure Departure Disposition: Home Clinical Impression: Abdominal pain of unknown etiology Condition: Good Critical Care Time: No Referrals: KENYON ANDERSON [Primary Care Provider] - Follow up/PCP as directed Instructions: Acute Abdomen (Belly Pain), Adult (DC) Additional Instructions: We have not determined the cause for your pain. We have treated for potential infections, but you should follow-up with your DrMarcelas for further evaluation to recheck and determine causes Return meantime if any symptoms of concern or not improving. You can also strain the urine for stones which could be a source. follow-up with your DrMarcela also for the uterus thickening on CT. Prescriptions: Ondansetron ODT 4 MG [Zofran Odt 4 mg] 4 mg PO Q6H PRN PRN #10 tablet PRN Reason: Nausea
[2022-03-10] MEDS ORDERED: Sodium Chloride 0.9% 1000 ML 1,000 ML IV STA (21:21)
[2022-03-10] MEDS ORDERED: Zofran 4 MG/2 ML VIAL IV ONE (21:21)
[2022-03-10] MEDS ORDERED: Hydromorphone 1 mg/ml Injection IV ONE (21:21)
[2022-03-10] MEDS ORDERED: Pepcid 20 MG VIAL IV ONE (21:21)
[2022-03-10 21:56] LABS: Basophil (Absolute #) 0.05 x10^3/uL (0-0.4); Eosinophil % 0.6 % (0.00-5.0); Hematocrit 39.1 % (35-47); Hemoglobin 12.5 g/dL (12.0-16.0); Lymphocyte (Absolute #) 1.35 x10^3/uL (1.0-4.6); Lymphocytes % 7.9 % (24.0-44.0); Mean Cell Volume 93.1 fL (78-100); Mean Corpuscular Hemoglobin 29.8 pg (26-32); Mean Platelet Volume 10.8 fL (7.5-11.0); Monocyte (Absolute #) 0.97 x10^3/uL (0.0-1.3); Monocytes % 5.7 % (0.0-12.0); Neutrophil % 85.2 % (36.0-66.0); Platelet Count 212 x10^3/uL (150-450); Red Cell Distribution Width 14.1 % (11.5-14.0); White Blood Count 17.1 x10^3/uL (4.0-10.5)
[2022-03-10 21:58] LABS: Appearance CLEAR (CLEAR)
[2022-03-10 21:59] LABS: Bilirubin NEGATIVE (NEGATIVE); Glucose NEGATIVE (NEGATIVE); Ketones NEGATIVE (NEGATIVE)
[2022-03-10 22:00] LABS: Dipstick done @ ? MAIN LAB; Nitrite NEGATIVE (NEGATIVE); Ph 8.5 (5-6); Protein,Urine Dip NEGATIVE (Negative); RBC NEGATIVE Ery/ul (0-5); Urobilinogen 0.2 mg/dL (0-1)
[2022-03-10 22:01] LABS: Epithelial Cells FEW /HPF (FEW); Mucus SLIGHT /HPF (NEGATIVE)
[2022-03-10 22:02] LABS: Urine Cultured Indicated? NO
[2022-03-10] MEDS ORDERED: ZOFRAN ODT 4 MG ONE (22:11)
[2022-03-10] MEDS ORDERED: ZOFRAN ODT 4 MG PO ONE (22:11)
[2022-03-10] MEDS ORDERED: Hydromorphone 1 mg/ml Injection ONE (22:12)
[2022-03-10 22:18] LABS: ALBUMIN 4.3 g/dL (3.5-5.0); ALKALINE PHOSPHATASE 92 U/L (38-126); AMYLASE 79 U/L (30-110); ANION GAP 12.9 MEQ/L (5-15); BLOOD UREA NITROGEN 11 mg/dL (7-17); CHLORIDE 106 mmol/L (98-107); Calcium 9.3 mg/dL (8.4-10.2); Carbon Dioxide 23 mmol/L (22-30); Creatinine 1 0.63 mg/dL (0.52-1.04); EST GLOMERULAR FILTRATION RATE > 60.0 ML/MIN; Glucose 99 mg/dL (74-106); LIPASE 90 U/L (23-300); Potassium 4.1 mmol/L (3.5-5.1); SGOT/AST 26 U/L (14-36); SGPT/ALT 19 U/L (0-35); SODIUM 137 mmol/L (137-145); Total Protein 6.8 g/dL (6.3-8.2)
[2022-03-10 23:04] VITALS: PULSE 88
[2022-03-10] MEDS ORDERED: Zithromax 250 MG TABLET PO ONE (23:06)
[2022-03-10] MEDS ORDERED: Zithromax 250 MG TABLET ONE (23:12)
[2022-03-10 23:31] VITALS: BP 110/68
--- NOTE | 2022-03-11 07:57 | XRAY ---
Indication: Left lower quadrant pain. Negative CT abdomen/pelvis without contrast exam from [facility] performed earlier in the day. Two-dimensional transvaginal pelvic sonogram performed. Comparison: June 20, 2021. Uterus again anteverted measuring 9.0 x 4.7 x 5.6 cm. Myometrium homogeneous. Endometrial stripe thickened measuring 1.6 cm. No endometrial cavity mass or fluid collection. Right ovary measures 3.3 x 1.8 x 2.8 cm and the left measures 2.7 x 2.2 x 3.5 cm. Normal follicular cysts and perfusion bilaterally. No suspicious adnexal mass or free fluid. Impression: Thickened endometrial stripe that should be correlated with patient's menstrual cycle. Remaining transvaginal post sonogram is negative. Comment: Preliminary report was given.
== END 2022-03-10 23:31 | disposition home or self-care (01) ==
LOC: ED 20:45
DX: R10.32 Left lower quadrant pain (principal); R10.33 Periumbilical pain; Z72.0 Tobacco use; Z79.899 Other long term (current) drug therapy
CPT/HCPCS: 36415; 76830; 80053; 81015; 82150; 83605; 83690; 84703; 85025; 96372; 99284; J1170; Q0162; A9270-GY

== ENCOUNTER 2022-03-11 20:09 | Emergency (ER) | payer OTHER ==
[2022-03-11 21:45] LABS: Bacteria RARE /HPF (NEGATIVE); Epithelial Cells FEW /HPF (FEW); Mucus SLIGHT /HPF (NEGATIVE)
[2022-03-11 21:46] LABS: Appearance CLEAR (CLEAR); Bilirubin NEGATIVE (NEGATIVE); Glucose NEGATIVE (NEGATIVE); Ketones NEGATIVE (NEGATIVE)
[2022-03-11 21:47] LABS: Dipstick done @ ? MAIN LAB; Nitrite NEGATIVE (NEGATIVE); Protein,Urine Dip NEGATIVE (Negative); RBC TRACE-INTACT Ery/ul (0-5); Urobilinogen 0.2 mg/dL (0-1)
[2022-03-11 21:49] LABS: Urine Cultured Indicated? YES
--- NOTE | 2022-03-11 21:57 | ERPHSYRPT ---
- History of Present Illness Historian: patient Exam Limitations: no limitations Patient Subjective Stated Complaint: LLQ pain, L flank pain Triage Nursing Assessment: pt to ED c/o LLQ pain that radiates to L flank. pt was seen in [facility] ED as well as this ED yesterday for this same problem and is finding no relief. 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 was given abx in ED but states they did not relieve pain. rates 10/10, tender to palp. "They told me I might be passing kidney stones and my WBC was through the roof but thats all." LBM yesterday morning. 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 Physician History: 26 yo wf w L flank pain x2 days. Pain is sharp and rated 8/10. Pt was seen at [facility] yesterday by Dr. Tilley for same problem and left AMA after neg CT/alberts. She then came to [facility] and had a neg transvag US. She has had nausea wo vomiting/diarrhea/fever/dysuria/hematuria. Timing/Duration: other (2 days) Quality: sharpness, stabbing Abdominal Pain Onset Location: other (L Flank) Pain Radiation: no radiation Severity of Pain-Max: severe Severity of Pain-Current: severe Associated Symptoms: loss of appetite, nausea, No back, No chest pain, No diaphoresis, No diarrhea, No fever/chills, No fatigue, No headache, No heartburn, No neck pain, No rash, No shortness of breath, No syncope, No vomiting, No weakness Previous symptoms: no prior history Allergies/Adverse Reactions: diphenhydramine HCl [From Benadryl] Adverse Reaction (Mild, Verified 03/10/22 20:57) "I FEEL LIKE I AM ON CRACK" doxycycline Adverse Reaction (Mild, Verified 03/10/22 20:57) Nausea promethazine HCl [From Phenergan] Adverse Reaction (Mild, Verified 03/10/22 20:57) "I FEEL LIKE I AM ON CRACK" Home Medications: Levothyroxine Sodium [Euthyrox] 1 ea DAILY 02/19/21 [History] Venlafaxine HCl 37.5 mg [Effexor 37.5 mg] 75 mg DAILY 02/19/21 [History] Hx Tetanus, Diphtheria Vaccination/Date Given: No Hx Influenza Vaccination/Date Given: Yes Hx Pneumococcal Vaccination/Date Given: No Immunizations Up to Date: No Travel Risk - International Travel Have you traveled outside of the country in past 3 weeks: No - Coronavirus Screening Are you exhibiting any of the following symptoms?: No Close contact with a COVID-19 positive Pt in past 14-21 Days: No - Vaccine Status Have you recieved a Covid-19 vaccination: Yes 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[employer] - Vaccination Dates Dates if Unknown: 2020 - Review of Systems Constitutional: No Symptoms Eyes: No Symptoms Ears, Nose, & Throat: No Symptoms Respiratory: No Symptoms Cardiac: No Symptoms Abdominal/Gastrointestinal: No Symptoms, Abdominal Pain, Nausea Genitourinary Symptoms: No Symptoms Musculoskeletal: No Symptoms Skin: No Symptoms Neurological: No Symptoms Psychological: No Symptoms Endocrine: No Symptoms Hematologic/Lymphatic: No Symptoms Immunological/Allergic: No Symptoms - Past Medical History Pertinent Past Medical History: Yes Neurological History: Migraines ENT History: No Pertinent History Cardiac History: No Pertinent History Respiratory History: No Pertinent History Endocrine Medical History: Hypoglycemia, Hypothyroidism Musculoskeletal History: Arthritis, Degenerative Disk Disease, Other GI Medical History: No Pertinent History, Other History: Other Psycho-Social History: Depression Female Reproductive Disorders: Endometriosis, Other Other Medical History: 2 prior vaginal deliveries, Kidney Stones, Endometriosis, PCOS, scoliosis to back - Past Surgical History Past Surgical History: Yes Neuro Surgical History: No Pertinent History Cardiac: No Pertinent History Respiratory: No Pertinent History Gastrointestinal: No Pertinent History Genitourinary: No Pertinent History Musculoskeletal: No Pertinent History Female Surgical History: Other Other Surgical History: D&C, LAP-endomet - Social History Smoking Status: Current every day smoker How long have you smoked: 12 years Exposure to second hand smoke: Yes Drug Use: none Patient Lives Alone: No Significant Family History: no pertinent family hx - Female History Hx Last Menstrual Period: last week Hx Now: No - Nursing Vital Signs Nursing Vital Signs: Initial Vital Signs Temperature 97.8 F 03/11/22 20:54 Pulse Rate 96 H 03/11/22 20:54 Respiratory Rate 22 03/11/22 20:54 Blood Pressure 122/70 03/11/22 20:54 O2 Sat by Pulse Oximetry 100 03/11/22 20:54 Pain Scale Pain Intensity 8 WNL - Physical Exam General Appearance: no apparent distress Eye Exam: PERRL/EOMI Ears, Nose, Throat Exam: normal ENT inspection Neck Exam: normal inspection, non-tender, supple, full range of motion, No meningismus, No mass, No Brudzinski, No Kernig's Respiratory Exam: normal breath sounds, lungs clear, airway intact Cardiovascular Exam: regular rate/rhythm, normal heart sounds, normal peripheral pulses, capillary refill <2 sec, No murmur Gastrointestinal/Abdomen Exam: soft, normal bowel sounds, tenderness (Mod L flank TTP) Back Exam: CVA tenderness (Mild L) Extremity Exam: normal inspection, normal range of motion Neurologic Exam: alert, oriented x 3, cooperative, housing installer II-XII nml as tested, normal mood/affect, nml cerebellar function, nml station & gait, sensation nml Skin Exam: normal color, warm, dry Lymphatic Exam: No adenopathy SpO2 Interpretation: normal SpO2: 100 O2 Delivery: Room Air - Course Nursing assessment & vital signs reviewed: Yes - CT Exams Abdomen/Pelvis CT Interpretation: Tele-radiologist Report (NAD) Ordered Tests: Active Orders 24 hr Category Date Time Status ABDOMEN AND PELVIS W/0 CONTRAS [CT] Stat Exams 03/11/22 22:34 Taken AMYLASE Stat Lab 03/11/22 22:06 Completed CBC W DIFF Stat Lab 03/11/22 22:06 Completed CMP Stat Lab 03/11/22 22:06 Completed CULTURE,URINE Stat Lab 03/11/22 21:37 Received HCG QUALITATIVE,SERUM Stat Lab 03/11/22 22:06 Completed LIPASE Stat Lab 03/11/22 22:06 Completed UA W/RFX CULTURE Stat Lab 03/11/22 21:37 Completed Medication Summary Discontinued Medications Generic Name Dose Route Start Last Admin Trade Name Huseyinq PRN Reason Stop Dose Admin Butorphanol Tartrate 2 mg 03/11/22 23:18 03/11/22 23:24 Butorphanol Tartrate 2 Mg/Ml Vial IM 03/11/22 23:19 2 mg STAT ONE Administration Butorphanol Tartrate Confirm 03/11/22 23:23 Butorphanol Tartrate 2 Mg/Ml Vial Administered 03/11/22 23:24 Dose 2 mg .ROUTE .STK-MED ONE Ketorolac Tromethamine 30 mg 03/11/22 22:04 03/11/22 22:20 Ketorolac Tromethamine 30 Mg/Ml Inj IM 03/11/22 22:05 30 mg STAT ONE Administration Ketorolac Tromethamine Confirm 03/11/22 22:17 Ketorolac Tromethamine 30 Mg/Ml Inj Administered 03/11/22 22:18 Dose 30 mg .ROUTE .STK-MED ONE Trimethoprim/Sulfamethoxazole 1 tab 03/11/22 23:53 03/11/22 23:57 Smz/Tmp Ds Tablet 1 Tablet PO 03/11/22 23:54 1 tab STAT STA Administration Trimethoprim/Sulfamethoxazole Confirm 03/11/22 23:56 Smz/Tmp Ds Tablet 1 Tablet Administered 03/11/22 23:57 Dose 1 tab PO .STK-MED ONE Lab/Rad Data: Laboratory Result Diagrams 03/11/22 22:06 03/11/22 22:06 Laboratory Results 03/11/22 03/11/22 03/11/22 Range/Units 22:06 22:06 22:06 WBC 8.5 (4.0-10.5) x10^3/uL RBC 3.95 L (4.1-5.4) x10^6/uL Hgb 11.7 L (12.0-16.0) g/dL Hct 36.8 (35-47) % MCV 93.2 (78-100) fL MCH 29.6 (26-32) pg MCHC 31.8 L (32-36) g/dL RDW 13.8 (11.5-14.0) % Plt Count 194 (150-450) x10^3/uL MPV 11.0 (7.5-11.0) fL Gran % 75.6 H (36.0-66.0) % Immature Gran % (Auto) 0.2 (0.00-0.4) % Nucleat RBC Rel Count 0.0 (0.00-0.1) % Eos # (Auto) 0.10 (0-0.5) x10^3/uL Immature Gran # (Auto) 0.02 (0.00-0.03) x10^3u/L Absolute Lymphs (auto) 1.26 (1.0-4.6) x10^3/uL Absolute Monos (auto) 0.65 (0.0-1.3) x10^3/uL Absolute Nucleated RBC 0.00 (0.00-0.01) x10^3u/L Lymphocytes % 14.9 L (24.0-44.0) % Monocytes % 7.7 (0.0-12.0) % Eosinophils % 1.2 (0.00-5.0) % Basophils % 0.4 (0.0-0.4) % Absolute Granulocytes 6.40 (1.4-6.9) x10^3/uL Basophils # 0.03 (0-0.4) x10^3/uL Sodium 138 (137-145) mmol/L Potassium 4.2 (3.5-5.1) mmol/L Chloride 104 (98-107) mmol/L Carbon Dioxide 24 (22-30) mmol/L Anion Gap 14.4 (5-15) MEQ/L BUN 17 (7-17) mg/dL Creatinine 0.63 (0.52-1.04) mg/dL Estimated GFR > 60.0 ML/MIN Glucose 100 (74-106) mg/dL Calcium 8.9 (8.4-10.2) mg/dL Total Bilirubin 0.30 (0.2-1.3) mg/dL AST 25 (14-36) U/L ALT 18 (0-35) U/L Alkaline Phosphatase 82 (38-126) U/L Serum Total Protein 6.9 (6.3-8.2) g/dL Albumin 4.1 (3.5-5.0) g/dL Amylase 78 (30-110) U/L Lipase 96 (23-300) U/L Serum , Qual NEGATIVE (Negative) Urinalys Dipstick Clnc Urine Color (YELLOW) Urine Appearance (CLEAR) Urine pH (5-6) Ur Specific Artie (1.005-1.025) POC Urine Protein Conf (Negative) Urine Ketones (NEGATIVE) Urine Nitrite (NEGATIVE) Urine Bilirubin (NEGATIVE) Urine Urobilinogen (0-1) mg/dL Urine Leukocytes (NEGATIVE) Urine WBC (Auto) (0-5) /HPF Urine RBC (Auto) (0-2) /HPF U Epithel Cells (Auto) (FEW) /HPF Urine Bacteria (Auto) (NEGATIVE) /HPF Urine RBC (0-5) Sen/ul Urine Mucus (Auto) (NEGATIVE) /HPF Ur Culture Indicated? Urine Glucose (NEGATIVE) mg/dL /02/25 Range/Units 21:37 WBC (4.0-10.5) x10^3/uL RBC (4.1-5.4) x10^6/uL Hgb (12.0-16.0) g/dL Hct (35-47) % MCV (78-100) fL MCH (26-32) pg MCHC (32-36) g/dL RDW (11.5-14.0) % Plt Count (150-450) x10^3/uL MPV (7.5-11.0) fL Gran % (36.0-66.0) % Immature Gran % (Auto) (0.00-0.4) % Nucleat RBC Rel Count (0.00-0.1) % Eos # (Auto) (0-0.5) x10^3/uL Immature Gran # (Auto) (0.00-0.03) x10^3u/L Absolute Lymphs (auto) (1.0-4.6) x10^3/uL Absolute Monos (auto) (0.0-1.3) x10^3/uL Absolute Nucleated RBC (0.00-0.01) x10^3u/L Lymphocytes % (24.0-44.0) % Monocytes % (0.0-12.0) % Eosinophils % (0.00-5.0) % Basophils % (0.0-0.4) % Absolute Granulocytes (1.4-6.9) x10^3/uL Basophils # (0-0.4) x10^3/uL Sodium (137-145) mmol/L Potassium (3.5-5.1) mmol/L Chloride (98-107) mmol/L Carbon Dioxide (22-30) mmol/L Anion Gap (5-15) MEQ/L BUN (7-17) mg/dL Creatinine (0.52-1.04) mg/dL Estimated GFR ML/MIN Glucose (74-106) mg/dL Calcium (8.4-10.2) mg/dL Total Bilirubin (0.2-1.3) mg/dL AST (14-36) U/L ALT (0-35) U/L Alkaline Phosphatase (38-126) U/L Serum Total Protein (6.3-8.2) g/dL Albumin (3.5-5.0) g/dL Amylase (30-110) U/L Lipase (23-300) U/L Serum , Qual (Negative) Urinalys Dipstick Clnc MAIN LAB Urine Color YELLOW (YELLOW) Urine Appearance CLEAR (CLEAR) Urine pH 7.0 (5-6) Ur Specific Artie 1.020 (1.005-1.025) POC Urine Protein Conf NEGATIVE (Negative) Urine Ketones NEGATIVE (NEGATIVE) Urine Nitrite NEGATIVE (NEGATIVE) Urine Bilirubin NEGATIVE (NEGATIVE) Urine Urobilinogen 0.2 (0-1) mg/dL Urine Leukocytes SMALL (NEGATIVE) Urine WBC (Auto) 3-5 (0-5) /HPF Urine RBC (Auto) 6-10 (0-2) /HPF U Epithel Cells (Auto) FEW (FEW) /HPF Urine Bacteria (Auto) RARE (NEGATIVE) /HPF Urine RBC TRACE-INTACT (0-5) Sen/ul Urine Mucus (Auto) SLIGHT (NEGATIVE) /HPF Ur Culture Indicated? YES Urine Glucose NEGATIVE (NEGATIVE) mg/dL - Progress Progress: improved Progress Note: 03/11/22 23:52 30mg IM Toradol wo improvement 2mg IM Stadol Counseled pt/family regarding: lab results, diagnosis, need for follow-up, rad results - Departure Departure Disposition: Home Clinical Impression: UTI (urinary tract infection) Condition: Stable Critical Care Time: No Referrals: KENYON ANDERSON [Primary Care Provider] - Follow up/PCP as directed Instructions: Urinary Tract Infection, Adult (DC), Acute Abdomen (Belly Pain), Adult (DC) Additional Instructions: Follow up with your family MD in 1-2 days Continue Bactrim in AM Return to Er for increasing pain or temperature greater than 100.5 Prescriptions: Sulfamethoxazole/Trimethoprim [Bactrim Ds Tablet] 1 each PO BID 3 Days #6 tablet
[2022-03-11] MEDS ORDERED: TORAdol 30 mg Injection IM ONE (22:04)
[2022-03-11 22:09] LABS: Basophil (Absolute #) 0.03 x10^3/uL (0-0.4); Eosinophil % 1.2 % (0.00-5.0); Hematocrit 36.8 % (35-47); Hemoglobin 11.7 g/dL (12.0-16.0); Lymphocyte (Absolute #) 1.26 x10^3/uL (1.0-4.6); Lymphocytes % 14.9 % (24.0-44.0); Mean Cell Volume 93.2 fL (78-100); Mean Corpuscular Hemoglobin 29.6 pg (26-32); Mean Corpuscular Hgb Concent. 31.8 g/dL (32-36); Monocyte (Absolute #) 0.65 x10^3/uL (0.0-1.3); Monocytes % 7.7 % (0.0-12.0); Neutrophil % 75.6 % (36.0-66.0); Platelet Count 194 x10^3/uL (150-450); Red Blood Count 3.95 x10^6/uL (4.1-5.4); Red Cell Distribution Width 13.8 % (11.5-14.0); White Blood Count 8.5 x10^3/uL (4.0-10.5)
[2022-03-11] MEDS ORDERED: TORAdol 30 mg Injection ONE (22:17)
[2022-03-11 22:20] LABS: ALBUMIN 4.1 g/dL (3.5-5.0); ALKALINE PHOSPHATASE 82 U/L (38-126); AMYLASE 78 U/L (30-110); ANION GAP 14.4 MEQ/L (5-15); BLOOD UREA NITROGEN 17 mg/dL (7-17); CHLORIDE 104 mmol/L (98-107); Calcium 8.9 mg/dL (8.4-10.2); Carbon Dioxide 24 mmol/L (22-30); Creatinine 1 0.63 mg/dL (0.52-1.04); EST GLOMERULAR FILTRATION RATE > 60.0 ML/MIN; Glucose 100 mg/dL (74-106); LIPASE 96 U/L (23-300); Potassium 4.2 mmol/L (3.5-5.1); SGOT/AST 25 U/L (14-36); SGPT/ALT 18 U/L (0-35); SODIUM 138 mmol/L (137-145); Total Protein 6.9 g/dL (6.3-8.2)
[2022-03-11] MEDS ORDERED: STADOL 2 MG IM ONE (23:18)
[2022-03-11] MEDS ORDERED: STADOL 2 MG ONE (23:23)
[2022-03-11 23:32] VITALS: BP 121/77; PULSE 78
[2022-03-11] MEDS ORDERED: BACTRIM DS TABLET PO STA (23:53)
[2022-03-11 23:55] VITALS: O2SAT 100
[2022-03-11] MEDS ORDERED: BACTRIM DS TABLET PO ONE (23:56)
--- NOTE | 2022-03-12 08:41 | XRAY ---
Indication: Abdomen pain. Multiple contiguous axial images obtained through the abdomen and pelvis without contrast. Comparison: June 20, 2021. Lung bases demonstrates minimal dependent atelectasis. No infiltrate or effusion. Heart not enlarged. Noncontrasted stomach and bowel loops nonobstructed again with normal appendix. No free fluid/air. Remaining liver, gallbladder, pancreas, spleen, adrenal glands, kidneys, ureters, bladder, uterus, and aorta are unremarkable for noncontrast exam. Osseous structures intact. Impression: Continued negative CT abdomen/pelvis without contrast exam. Comment: Preliminary interpretation made by [facility]. No critical discrepancy.
== END 2022-03-12 00:08 | disposition home or self-care (01) ==
LOC: ED 20:09
DX: N39.0 Urinary tract infection, site not specified (principal); R10.32 Left lower quadrant pain; R11.0 Nausea; Z72.0 Tobacco use; Z79.899 Other long term (current) drug therapy
CPT/HCPCS: 36415; 74176; 80053; 81015; 82150; 83690; 84703; 85025; 87086; 96372; 99284; J0595; J1885; A9270-GY

== ENCOUNTER 2022-04-17 07:22 | Day surgery (SDC) | payer OTHER ==
[~2022-04-17 07:22] MED LIST: CEFAZOLIN 2 GM-D5W BAG** 2 GM/50 ML ML IV ONE
[2022-04-17] MEDS ORDERED: Lactated Ringers 1,000 ML IV ONE (07:23)
[2022-04-17] MEDS ORDERED: CEFAZOLIN 2 GM-D5W BAG** 2 GM/50 ML ML IV SCH (07:30)
[2022-04-17] MEDS ORDERED: Lactated Ringers 1,000 ML IV SCH (07:30)
[2022-04-17] MEDS ORDERED: Decadron 4 MG INJ ONE (07:57)
[2022-04-17] MEDS ORDERED: Xylocaine-Mpf 2% 5 Ml Vial ONE (07:57)
[2022-04-17] MEDS ORDERED: DIPRIVAN 200 MG/20 ML IV ONE (07:57)
[2022-04-17] MEDS ORDERED: TORAdol 30 mg Injection ONE (07:57)
[2022-04-17] MEDS ORDERED: Zofran 4 MG/2 ML VIAL ONE (07:57)
[2022-04-17] MEDS ORDERED: SUBLIMAZE 100 MCG/2 ML ONE ×2 (07:58→09:35)
[2022-04-17] MEDS ORDERED: VERSED 5 MG/5 ML ONE (08:34)
[2022-04-17] MEDS ORDERED: DEXMEDETOMIDINE 80 MCG/20ML-NS IV ONE (08:59)
[2022-04-17] MEDS ORDERED: NORCO 7.5/325 MG TAB PO ONE (10:34)
[2022-04-17 11:21] VITALS: BP 117/71; PULSE 60; O2SAT 97
--- NOTE | 2022-04-18 08:11 | OP ---
SURGERY DATE/TIME: 04/17/2022 0847 PREOPERATIVE DIAGNOSIS: Menorrhagia with failed medical management. POSTOPERATIVE DIAGNOSIS: Menorrhagia with failed medical management. PROCEDURE: Hysteroscopy D&C with endometrial ablation using NovaSure. SURGEON: Darrion Murcia D.O. CHIROPRACTOR ASSISTANT: Sonia Cruz surgical scrub tech. ANESTHESIA: General. ESTIMATED BLOOD LOSS: Minimal. COMPLICATIONS: None. INDICATIONS: The risks, benefits, indications and alternatives of the procedure were reviewed with the patient prior to procedure. The patient understood the risk of infection, bleeding, bowel injury, bladder injury, ureteral injury, uterine perforation, pelvic infection, thromboembolic disorder associated with the surgery and desires to have this surgery as a possible means to alleviate her current medical condition. DESCRIPTION OF PROCEDURE AND FINDINGS: At this point the patient is taken to the operating room, given general sedation, placed in dorsal lithotomy position, prepped and draped in the usual sterile fashion. A weighted speculum is then placed in the patient's vagina and the anterior lip of the cervix was grasped with a single tooth tenaculum. Endocervical dilators were advanced through the endocervical canal as a means to dilate the cervix. A 5 mm hysteroscope was then placed through the endocervical region towards the fundal region where visualization revealed no gross abnormalities within the uterine cavity. From this point, the hysteroscope was removed from the uterine cavity and a curette was then placed into the fundus of the uterus where curettage was performed in all quadrants of the uterus retrieving a mild to moderate amount of endometrial tissue. From this point hemostasis was obtained. At this point the NovaSure instrument was then taken through the endocervical region towards the fundal region with a length of 6.5 cm and was engaged with a width of 4.5 cm. The machine was subsequently turned on for an ablative time of 48 seconds. After complete ablation, the instrument was disengaged and removed from the uterine cavity without complication. From this point all instruments were removed from the patient's vaginal region. The patient was then taken out of the dorsal lithotomy position, was taken out of anesthesia and was then taken to the recovery room in stable condition. All instruments and laps were accounted for x2.
== END 2022-04-17 10:48 | disposition home or self-care (01) ==
LOC: SDC 07:22
PROVIDERS: ATTEND Obstetrics & Gynecology
DX: N92.0 Excessive and frequent menstruation with regular cycle (principal)
CPT/HCPCS: 81025; J0690; J1100; J1885; J2250; J2405; J2704; J3010; A9270-GY

== ENCOUNTER 2022-05-21 19:55 | Emergency (ER) | payer OTHER ==
[2022-05-21 20:10] VITALS: O2SAT 99
--- NOTE | 2022-05-21 20:12 | ERPHSYRPT ---
- History of Present Illness Time Seen by Provider: 05/21/22 20:11 Source: patient Exam Limitations: no limitations Patient Subjective Stated Complaint: pt states she has a painful lump about pea sized below clitoris inside vaginal lips Triage Nursing Assessment: small pea sized lump at top of rt outer labia. pt states she had a rough sexual encounter and is not sure exactly all that happened, but thinks a mouth and tooth were involved. Physician History: This is a 26-year-old white female who noticed a right upper, outer labial lump that is slightly increased in size and tender. Patient states that 2 days ago she and her partner were drinking heavily and are involved in a rough sex and over the last couple days she has had tenderness in this area. Timing/Duration: day(s) (2) Activites at Onset: sexual activity Quality: other (Tender) Pain Radiation: none Severity of Pain-Max: mild (To moderate with palpation) Severity of Pain-Current: mild Sexual intercourse history: single partner Associated Symptoms: denies symptoms Allergies/Adverse Reactions: diphenhydramine HCl [From Benadryl] Adverse Reaction (Mild, Verified 03/10/22 20:57) "I FEEL LIKE I AM ON CRACK" doxycycline Adverse Reaction (Mild, Verified 03/10/22 20:57) Nausea promethazine HCl [From Phenergan] Adverse Reaction (Mild, Verified 04/05/22 10:56) "I FEEL LIKE I AM ON CRACK" Home Medications: Levothyroxine Sodium [Euthyrox] 1 ea DAILY 02/19/21 [History] Venlafaxine HCl 37.5 mg [Effexor 37.5 mg] 75 mg DAILY 02/19/21 [History] Hx Tetanus, Diphtheria Vaccination/Date Given: Yes Hx Influenza Vaccination/Date Given: Yes Hx Pneumococcal Vaccination/Date Given: No Travel Risk - International Travel Have you traveled outside of the country in past 3 weeks: No - Coronavirus Screening Are you exhibiting any of the following symptoms?: No Close contact with a COVID-19 positive Pt in past 14-21 Days: No - Vaccine Status Have you recieved a Covid-19 vaccination: Yes 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[employer] - Vaccination Dates Dates if Unknown: 2020 - Review of Systems Constitutional: No Symptoms Eyes: No Symptoms Ears, Nose, & Throat: No Symptoms Respiratory: No Symptoms Cardiac: No Symptoms Abdominal/Gastrointestinal: No Symptoms Genitourinary Symptoms: No Symptoms Musculoskeletal: No Symptoms Skin: No Symptoms Neurological: No Symptoms Psychological: No Symptoms Endocrine: No Symptoms Hematologic/Lymphatic: No Symptoms - Past Medical History Pertinent Past Medical History: Yes Neurological History: Migraines ENT History: No Pertinent History Cardiac History: No Pertinent History Respiratory History: No Pertinent History Endocrine Medical History: Hypoglycemia, Hypothyroidism Musculoskeletal History: Arthritis, Degenerative Disk Disease, Other GI Medical History: Other History: Other Psycho-Social History: Anxiety, Bipolar, Depression Female Reproductive Disorders: Endometriosis, Other Other Medical History: 2 prior vaginal deliveries, Kidney Stones, Endometriosis, PCOS, scoliosis to back - Past Surgical History Past Surgical History: Yes Neuro Surgical History: No Pertinent History Cardiac: No Pertinent History Respiratory: No Pertinent History Gastrointestinal: No Pertinent History Genitourinary: No Pertinent History Musculoskeletal: No Pertinent History Female Surgical History: Other Other Surgical History: D&C, LAP-endomet, ablation 04/27 - Social History Smoking Status: Former smoker How long have you smoked: 12 years Exposure to second hand smoke: Yes Drug Use: none Patient Lives Alone: No Significant Family History: no pertinent family hx - Female History Hx Now: No - Nursing Vital Signs Nursing Vital Signs: Initial Vital Signs Temperature 97.9 F 05/21/22 19:58 Pulse Rate 70 05/21/22 19:58 Respiratory Rate 16 05/21/22 19:58 Blood Pressure 131/78 05/21/22 19:58 O2 Sat by Pulse Oximetry 99 05/21/22 19:58 Pain Scale Pain Intensity 4 - Physical Exam General Appearance: no apparent distress, alert, anxiety Eye Exam: PERRL/EOMI, eyes nml inspection Ears, Nose, Throat Exam: normal ENT inspection, moist mucous membranes Neck Exam: normal inspection, non-tender, supple, full range of motion Respiratory Exam: airway intact, No chest tenderness, No respiratory distress Gastrointestinal/Abdomen Exam: No tenderness Pelvic Exam: other (Tender right upper labial subcu tenia's induration/fullness without abscess) Back Exam: normal inspection, normal range of motion, No CVA tenderness, No vertebral tenderness Extremity Exam: normal inspection, normal range of motion, pelvis stable Neurologic Exam: alert, oriented x 3, cooperative, airplane cleaner II-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 nml as tested, normal mood/affect, nml cerebellar function, nml station & gait, sensation nml Skin Exam: normal color, warm, dry Lymphatic Exam: No adenopathy SpO2 Interpretation: normal SpO2: 99 O2 Delivery: Room Air - Course Nursing assessment & vital signs reviewed: Yes Ordered Tests: Medication Summary Generic Name Dose Route Start Last Admin Trade Name Mauro PRN Reason Stop Dose Admin Clindamycin HCl 300 mg 05/21/22 20:25 Clindamycin Hcl 150 Mg Capsule PO 05/21/22 20:26 STAT ONE Trimethoprim/Sulfamethoxazole 1 tab 05/21/22 20:29 Smz/Tmp Ds Tablet 1 Tablet PO 05/21/22 20:30 STAT ONE - Progress Progress: unchanged Antibiotics given: Yes Counseled pt/family regarding: diagnosis, need for follow-up - Departure Departure Disposition: Home Clinical Impression: Labial infection Condition: Stable Critical Care Time: No Referrals: KENYON ANDERSON [Primary Care Provider] - Follow up/PCP as directed Additional Instructions: Sitz bath with warm soapy water twice a day or warm Epson salt water twice a day over the next 2 to 3 days. May also use warm compresses to the area. Take your antibiotics as prescribed. 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 Use Tylenol and ibuprofen for pain control Prescriptions: Smz/Tmp Ds Tablet [Bactrim Ds Tablet] 1 udtab PO BID #14 tablet Clindamycin HCl 150 mg [Cleocin 150 mg Capsule] 2 cap PO QID #56 cap
[2022-05-21] MEDS ORDERED: CLEOCIN 150 MG CAPSULE PO ONE (20:25)
[2022-05-21] MEDS ORDERED: BACTRIM DS TABLET PO ONE ×2 (20:29→20:35)
[2022-05-21] MEDS ORDERED: CLEOCIN 150 MG CAPSULE ONE (20:34)
[2022-05-21 20:52] VITALS: BP 118/70; PULSE 66
== END 2022-05-21 20:45 | disposition home or self-care (01) ==
LOC: ED 19:55
DX: N76.2 Acute vulvitis (principal); Z79.899 Other long term (current) drug therapy
CPT/HCPCS: 99282; A9270-GY

== ENCOUNTER 2022-07-02 20:48 | Emergency (ER) | payer OTHER ==
--- NOTE | 2022-07-02 20:51 | ERPHSYRPT ---
- History of Present Illness Time Seen by Provider: 07/02/22 20:51 Source: patient Exam Limitations: no limitations Physician History: This is a 26-year-old white female patient of Dr. Nagi Lara who has flulike symptoms that began last week. She took a home test which was positive for COVID-19 infection. Her symptoms have worsened. She has a headache and myalgias and arthralgias. She is got a cough. She has no abdominal pain but she did have some vomiting today. She has not had diarrhea. She has no chest pain. And she is not short of breath. She does not have neck pain and she has no photophobia. Patient has lost sense of taste and smell Timing/Duration: day(s) (2), worse Cough Quality/Degree: mild Possible Cause: no prior episodes Modifying Factors: Improves With: coughing Associated Symptoms: cough, headache, muscle aches, No chest pain/soreness, No sore throat Allergies/Adverse Reactions: diphenhydramine HCl [From Benadryl] Adverse Reaction (Mild, Verified 07/02/22 21:20) "I FEEL LIKE I AM ON CRACK" doxycycline Adverse Reaction (Mild, Verified 07/02/22 21:20) Nausea promethazine HCl [From Phenergan] Adverse Reaction (Mild, Verified 07/02/22 21:20) "I FEEL LIKE I AM ON CRACK" Hx Tetanus, Diphtheria Vaccination/Date Given: Yes Hx Influenza Vaccination/Date Given: Yes Hx Pneumococcal Vaccination/Date Given: No Travel Risk - International Travel Have you traveled outside of the country in past 3 weeks: No - Coronavirus Screening Are you exhibiting any of the following symptoms?: Yes Symptoms: Cough: New Onset Close contact with a COVID-19 positive Pt in past 14-21 Days: No - Vaccine Status Have you recieved a Covid-19 vaccination: Yes 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: [employer] - Vaccination Dates Dates if Unknown: 2020 - Review of Systems Constitutional: Weakness Eyes: No Symptoms Ears, Nose, & Throat: No Symptoms, Throat Pain Respiratory: Cough Cardiac: No Symptoms Abdominal/Gastrointestinal: No Symptoms Genitourinary Symptoms: No Symptoms Musculoskeletal: Arthralgias, Myalgias Skin: No Symptoms Neurological: Headache Psychological: No Symptoms, Hallucinations Endocrine: No Symptoms Hematologic/Lymphatic: No Symptoms Immunological/Allergic: No Symptoms All Other Systems: Reviewed and Negative - Past Medical History Pertinent Past Medical History: Yes Neurological History: Migraines ENT History: No Pertinent History Cardiac History: No Pertinent History Respiratory History: No Pertinent History Endocrine Medical History: Hypoglycemia, Hypothyroidism Musculoskeletal History: Arthritis, Degenerative Disk Disease, Other GI Medical History: Other History: Other Psycho-Social History: Anxiety, Bipolar, Depression Female Reproductive Disorders: Endometriosis, Other Other Medical History: 2 prior vaginal deliveries, Kidney Stones, Endometriosis, PCOS, scoliosis to back - Past Surgical History Past Surgical History: Yes Neuro Surgical History: No Pertinent History Cardiac: No Pertinent History Respiratory: No Pertinent History Gastrointestinal: No Pertinent History Genitourinary: No Pertinent History Musculoskeletal: No Pertinent History Female Surgical History: Other Other Surgical History: D&C, LAP-endomet, ablation 04/27 - Social History Smoking Status: Former smoker How long have you smoked: 12 years Exposure to second hand smoke: Yes Drug Use: none Patient Lives Alone: No Significant Family History: no pertinent family hx - Nursing Vital Signs Nursing Vital Signs: Initial Vital Signs Temperature 97.3 F 07/02/22 21:05 Pulse Rate 86 07/02/22 21:05 Respiratory Rate 16 07/02/22 21:05 Blood Pressure 101/79 07/02/22 21:05 O2 Sat by Pulse Oximetry 98 07/02/22 21:05 Pain Scale Pain Intensity 6 - Physical Exam General Appearance: mild distress, alert, anxiety Eye Exam: PERRL/EOMI, eyes nml inspection Ears, Nose, Throat Exam: normal ENT inspection, moist mucous membranes Neck Exam: normal inspection, non-tender, supple, full range of motion, No meningismus Respiratory Exam: normal breath sounds, lungs clear, airway intact, No chest tenderness, No respiratory distress Cardiovascular Exam: regular rate/rhythm, normal heart sounds, normal peripheral pulses Gastrointestinal/Abdomen Exam: soft, normal bowel sounds, No tenderness Pelvic Exam: not done Rectal Exam: not done Back Exam: normal inspection, normal range of motion, No CVA tenderness Extremity Exam: normal inspection, normal range of motion, pelvis stable Neurologic Exam: alert, oriented x 3, cooperative, wick tender II-XII nml as tested, normal mood/affect, nml cerebellar function, nml station & gait, sensation nml Skin Exam: normal color, warm, dry Lymphatic Exam: No adenopathy SpO2 Interpretation: normal O2 Delivery: Room Air - Course Nursing assessment & vital signs reviewed: Yes Ordered Tests: Active Orders 24 hr Category Date Time Status IV Insertion STAT Care 07/02/22 21:07 Active CHEST 1 VIEW (PORTABLE) Stat Exams 07/02/22 21:33 Taken BLOOD CULTURE Stat Lab 07/02/22 21:32 Ordered CBC W DIFF Stat Lab 07/02/22 21:32 Completed CMP Stat Lab 07/02/22 21:32 Completed HCG,QUALITATIVE URINE Stat Lab 07/02/22 21:25 Completed Lactic Acid Stat Lab 07/02/22 21:27 Completed [place] Screen Stat Lab 07/02/22 21:25 Completed UA W/RFX CULTURE Stat Lab 07/02/22 21:25 Completed Medication Summary Discontinued Medications Generic Name Dose Route Start Last Admin Trade Name Mauro PRN Reason Stop Dose Admin Hydrocodone Bitart/Acetaminophen 10 ml 07/02/22 21:25 07/02/22 21:49 Hydrocodone/Acetaminophen 5 Ml Udcup PO 07/02/22 21:26 10 ml STAT STA Administration Hydrocodone Bitart/Acetaminophen Confirm 07/02/22 21:44 Hydrocodone/Acetaminophen 5 Ml Udcup Administered 07/02/22 21:45 Dose 10 ml .ROUTE .STK-MED ONE Methylprednisolone Sodium 0 mg 07/02/22 21:25 07/02/22 21:49 Succinate 125 mg/ Sterile IV 07/02/22 21:26 125 mg Water 2 ml STAT ONE Administration Sodium Chloride 1,000 mls @ 999 mls/hr 07/02/22 21:07 07/02/22 22:49 Sodium Chloride 0.9% 1000 Ml IV 07/02/22 22:07 Infused .Q1H1M STA Infusion Sodium Chloride Confirm 07/02/22 21:44 Sodium Chloride 0.9% 1000 Ml Administered 07/02/22 21:45 Dose 1,000 mls @ ud .ROUTE .STK-MED ONE Sodium Chloride 1,000 mls @ 999 mls/hr 07/02/22 22:57 07/02/22 23:00 Sodium Chloride 0.9% 1000 Ml IV 07/02/22 23:57 999 mls/hr .Q1H1M STA Administration Sodium Chloride Confirm 07/02/22 22:58 Sodium Chloride 0.9% 1000 Ml Administered 07/02/22 22:59 Dose 1,000 mls @ ud .ROUTE .STK-MED ONE Methylprednisolone Sodium Succinate Confirm 07/02/22 21:44 Methylprednis Sod Succ 125 Mg/2 Ml Vial Administered 07/02/22 21:45 Dose 125 mg .ROUTE .STK-MED ONE Ondansetron HCl 4 mg 07/02/22 21:07 07/02/22 21:48 Ondansetron Hcl 4 Mg/2 Ml Vial IV 07/02/22 21:08 4 mg STAT STA Administration Ondansetron HCl Confirm 07/02/22 21:44 Ondansetron Hcl 4 Mg/2 Ml Vial Administered 07/02/22 21:45 Dose 4 mg .ROUTE .STK-MED ONE Ondansetron HCl 4 mg 07/02/22 22:57 07/02/22 23:00 Ondansetron Hcl 4 Mg/2 Ml Vial IV 07/02/22 22:58 4 mg STAT ONE Administration Ondansetron HCl Confirm 07/02/22 22:58 Ondansetron Hcl 4 Mg/2 Ml Vial Administered 07/02/22 22:59 Dose 4 mg .ROUTE .STK-MED ONE Pantoprazole Sodium 40 mg 07/02/22 22:57 07/02/22 23:00 Pantoprazole 40 Mg Vial IV 07/02/22 22:58 40 mg STAT ONE Administration Pantoprazole Sodium Confirm 07/02/22 22:59 Pantoprazole 40 Mg Vial Administered 07/02/22 23:00 Dose 40 mg IV .STK-MED ONE Sterile Water Confirm 07/02/22 21:44 Water For Injection,Sterile 10 Ml Vial Administered 07/02/22 21:45 Dose 10 ml IJ .STK-MED ONE Lab/Rad Data: Laboratory Result Diagrams 07/02/22 21:32 07/02/22 21:32 Laboratory Results 07/02/22 07/02/22 07/02/22 Range/Units 21:55 21:32 21:32 WBC (4.0-10.5) x10^3/uL RBC (4.1-5.4) x10^6/uL Hgb (12.0-16.0) g/dL Hct (35-47) % MCV (78-100) fL MCH (26-32) pg MCHC (32-36) g/dL RDW (11.5-14.0) % Plt Count (150-450) x10^3/uL MPV (7.5-11.0) fL Gran % (36.0-66.0) % Immature Gran % (Auto) (0.00-0.4) % Nucleat RBC Rel Count (0.00-0.1) % Eos # (Auto) (0-0.5) x10^3/uL Immature Gran # (Auto) (0.00-0.03) x10^3u/L Absolute Lymphs (auto) (1.0-4.6) x10^3/uL Absolute Monos (auto) (0.0-1.3) x10^3/uL Absolute Nucleated RBC (0.00-0.01) x10^3u/L Lymphocytes % (24.0-44.0) % Monocytes % (0.0-12.0) % Eosinophils % (0.00-5.0) % Basophils % (0.0-0.4) % Absolute Granulocytes (1.4-6.9) x10^3/uL Basophils # (0-0.4) x10^3/uL Sodium 138 (137-145) mmol/L Potassium 4.0 (3.5-5.1) mmol/L Chloride 104 (98-107) mmol/L Carbon Dioxide 26 (22-30) mmol/L Anion Gap 11.7 (5-15) MEQ/L BUN 11 (7-17) mg/dL Creatinine 0.64 (0.52-1.04) mg/dL Estimated GFR > 60.0 ML/MIN Glucose 98 (74-106) mg/dL Lactic Acid (0.4-2.0) Calcium 9.2 (8.4-10.2) mg/dL Total Bilirubin 0.40 (0.2-1.3) mg/dL AST 17 (14-36) U/L ALT 15 (0-35) U/L Alkaline Phosphatase 89 (38-126) U/L Serum Total Protein 7.4 (6.3-8.2) g/dL Albumin 4.6 (3.5-5.0) g/dL Urinalys Dipstick Clnc Urine Color (YELLOW) Urine Appearance (CLEAR) Urine pH (5-6) Ur Specific [place] (1.005-1.025) POC Urine Protein Conf (Negative) Urine Ketones (NEGATIVE) Urine Nitrite (NEGATIVE) Urine Bilirubin (NEGATIVE) Urine Urobilinogen (0-1) mg/dL Urine Leukocytes (NEGATIVE) Urine WBC (Auto) (0-5) /HPF Urine RBC (Auto) (0-2) /HPF U Epithel Cells (Auto) (FEW) /HPF Urine Bacteria (Auto) (NEGATIVE) /HPF Urine RBC (0-5) Sen/ul Urine Mucus (Auto) (NEGATIVE) /HPF Ur Culture Indicated? Urine Glucose (NEGATIVE) mg/dL Urine HCG, Qual (Negative) Monoscreen (Negative) Influenza Type A Ag NEGATIVE (NEGATIVE) Influenza Type B Ag NEGATIVE (NEGATIVE) RSV (PCR) NEGATIVE (Negative) SARS-CoV-2 (PCR) POSITIVE A (NEGATIVE) Group A Strep Antibody NOT DETECTED (NEGATIVE) 07/02/22 07/02/22 07/02/22 Range/Units 21:32 21:27 21:25 WBC 7.2 (4.0-10.5) x10^3/uL RBC 4.65 (4.1-5.4) x10^6/uL Hgb 13.9 (12.0-16.0) g/dL Hct 43.5 (35-47) % MCV 93.5 (78-100) fL MCH 29.9 (26-32) pg MCHC 32.0 (32-36) g/dL RDW 12.6 (11.5-14.0) % Plt Count 214 (150-450) x10^3/uL MPV 10.9 (7.5-11.0) fL Gran % 69.6 H (36.0-66.0) % Immature Gran % (Auto) 0.1 (0.00-0.4) % Nucleat RBC Rel Count 0.0 (0.00-0.1) % Eos # (Auto) 0.12 (0-0.5) x10^3/uL Immature Gran # (Auto) 0.01 (0.00-0.03) x10^3u/L Absolute Lymphs (auto) 1.58 (1.0-4.6) x10^3/uL Absolute Monos (auto) 0.46 (0.0-1.3) x10^3/uL Absolute Nucleated RBC 0.00 (0.00-0.01) x10^3u/L Lymphocytes % 21.9 L (24.0-44.0) % Monocytes % 6.4 (0.0-12.0) % Eosinophils % 1.7 (0.00-5.0) % Basophils % 0.3 (0.0-0.4) % Absolute Granulocytes 5.02 (1.4-6.9) x10^3/uL Basophils # 0.02 (0-0.4) x10^3/uL Sodium (137-145) mmol/L Potassium (3.5-5.1) mmol/L Chloride (98-107) mmol/L Carbon Dioxide (22-30) mmol/L Anion Gap (5-15) MEQ/L BUN (7-17) mg/dL Creatinine (0.52-1.04) mg/dL Estimated GFR ML/MIN Glucose (74-106) mg/dL Lactic Acid 0.9 (0.4-2.0) Calcium (8.4-10.2) mg/dL Total Bilirubin (0.2-1.3) mg/dL AST (14-36) U/L ALT (0-35) U/L Alkaline Phosphatase (38-126) U/L Serum Total Protein (6.3-8.2) g/dL Albumin (3.5-5.0) g/dL Urinalys Dipstick Clnc Urine Color (YELLOW) Urine Appearance (CLEAR) Urine pH (5-6) Ur Specific [place] (1.005-1.025) POC Urine Protein Conf (Negative) Urine Ketones (NEGATIVE) Urine Nitrite (NEGATIVE) Urine Bilirubin (NEGATIVE) Urine Urobilinogen (0-1) mg/dL Urine Leukocytes (NEGATIVE) Urine WBC (Auto) (0-5) /HPF Urine RBC (Auto) (0-2) /HPF U Epithel Cells (Auto) (FEW) /HPF Urine Bacteria (Auto) (NEGATIVE) /HPF Urine RBC (0-5) Sen/ul Urine Mucus (Auto) (NEGATIVE) /HPF Ur Culture Indicated? Urine Glucose (NEGATIVE) mg/dL Urine HCG, Qual (Negative) Monoscreen WEAKLY POSITIVE (Negative) Influenza Type A Ag (NEGATIVE) Influenza Type B Ag (NEGATIVE) RSV (PCR) (Negative) SARS-CoV-2 (PCR) (NEGATIVE) Group A Strep Antibody (NEGATIVE) 07/02/22 07/02/22 Range/Units 21:25 21:25 WBC (4.0-10.5) x10^3/uL RBC (4.1-5.4) x10^6/uL Hgb (12.0-16.0) g/dL Hct (35-47) % MCV (78-100) fL MCH (26-32) pg MCHC (32-36) g/dL RDW (11.5-14.0) % Plt Count (150-450) x10^3/uL MPV (7.5-11.0) fL Gran % (36.0-66.0) % Immature Gran % (Auto) (0.00-0.4) % Nucleat RBC Rel Count (0.00-0.1) % Eos # (Auto) (0-0.5) x10^3/uL Immature Gran # (Auto) (0.00-0.03) x10^3u/L Absolute Lymphs (auto) (1.0-4.6) x10^3/uL Absolute Monos (auto) (0.0-1.3) x10^3/uL Absolute Nucleated RBC (0.00-0.01) x10^3u/L Lymphocytes % (24.0-44.0) % Monocytes % (0.0-12.0) % Eosinophils % (0.00-5.0) % Basophils % (0.0-0.4) % Absolute Granulocytes (1.4-6.9) x10^3/uL Basophils # (0-0.4) x10^3/uL Sodium (137-145) mmol/L Potassium (3.5-5.1) mmol/L Chloride (98-107) mmol/L Carbon Dioxide (22-30) mmol/L Anion Gap (5-15) MEQ/L BUN (7-17) mg/dL Creatinine (0.52-1.04) mg/dL Estimated GFR ML/MIN Glucose (74-106) mg/dL Lactic Acid (0.4-2.0) Calcium (8.4-10.2) mg/dL Total Bilirubin (0.2-1.3) mg/dL AST (14-36) U/L ALT (0-35) U/L Alkaline Phosphatase (38-126) U/L Serum Total Protein (6.3-8.2) g/dL Albumin (3.5-5.0) g/dL Urinalys Dipstick Clnc MAIN LAB Urine Color YELLOW (YELLOW) Urine Appearance SLIGHTLY CLOUDY (CLEAR) Urine pH 6.0 (5-6) Ur Specific [place] 1.025 (1.005-1.025) POC Urine Protein Conf NEGATIVE (Negative) Urine Ketones NEGATIVE (NEGATIVE) Urine Nitrite NEGATIVE (NEGATIVE) Urine Bilirubin NEGATIVE (NEGATIVE) Urine Urobilinogen 0.2 (0-1) mg/dL Urine Leukocytes TRACE (NEGATIVE) Urine WBC (Auto) 0-2 (0-5) /HPF Urine RBC (Auto) 3-5 (0-2) /HPF U Epithel Cells (Auto) MODERATE (FEW) /HPF Urine Bacteria (Auto) NONE (NEGATIVE) /HPF Urine RBC NEGATIVE (0-5) Sen/ul Urine Mucus (Auto) SLIGHT (NEGATIVE) /HPF Ur Culture Indicated? NO Urine Glucose NEGATIVE (NEGATIVE) mg/dL Urine HCG, Qual NEGATIVE (Negative) Monoscreen (Negative) Influenza Type A Ag (NEGATIVE) Influenza Type B Ag (NEGATIVE) RSV (PCR) (Negative) SARS-CoV-2 (PCR) (NEGATIVE) Group A Strep Antibody (NEGATIVE) - Progress Progress: improved Air Movement: good Progress Note: 07/02/22 23:59 Chest x-ray shows no acute cardiopulmonary process Blood Culture(s) Obtained: Yes Antibiotics given: No Counseled pt/family regarding: lab results, diagnosis, need for follow-up, rad results - Departure Departure Disposition: Home Clinical Impression: COVID-19 virus infection, Mononucleosis Condition: Stable Critical Care Time: No Referrals: KENYON ANDERSON [Primary Care Provider] - Follow up/PCP as directed Additional Instructions: Drink plenty of clear liquids. Do not advance your diet beyond clear liquids until you are taking that type of diet well. Take your medication as prescribed. Follow-up with your primary care physician for further evaluation and management Prescriptions: Ondansetron ODT 4 MG [Zofran Odt 4 mg] 4 mg PO Q6H PRN PRN #10 tablet PRN Reason: Vomiting Hydrocodone/Acetaminophen [Hydrocodone-Acetamn 7.5-325/15] 10 ml PO Q8H PRN PRN #120 ml MDD 30 ml PRN Reason: Cough Prednisone 10 mg [Deltasone 10 mg] 10 mg PO TID #12 tablet
[2022-07-02] MEDS ORDERED: Zofran 4 MG/2 ML VIAL IV STA (21:07)
[2022-07-02] MEDS ORDERED: Sodium Chloride 0.9% 1000 ML 1,000 ML IV STA ×2 (21:07→22:57)
[2022-07-02] MEDS ORDERED: solu-MEDROL 125 MG, Sterile H2O 10 ml 2 ML IV ONE ×2 (21:25)
[2022-07-02] MEDS ORDERED: HYDROCODONE-ACETAMIN 2.5-108/5 ML SOLUTION PO STA ×2 (21:25→23:58)
[2022-07-02 21:37] LABS: Absolute Neutrophil Ct (ANC) 5.02 x10^3/uL (1.4-6.9); Basophil (Absolute #) 0.02 x10^3/uL (0-0.4); Eosinophil % 1.7 % (0.00-5.0); Eosinophil (Absolute #) 0.12 x10^3/uL (0-0.5); Hematocrit 43.5 % (35-47); Hemoglobin 13.9 g/dL (12.0-16.0); Lymphocyte (Absolute #) 1.58 x10^3/uL (1.0-4.6); Lymphocytes % 21.9 % (24.0-44.0); Mean Cell Volume 93.5 fL (78-100); Mean Corpuscular Hemoglobin 29.9 pg (26-32); Mean Platelet Volume 10.9 fL (7.5-11.0); Monocyte (Absolute #) 0.46 x10^3/uL (0.0-1.3); Monocytes % 6.4 % (0.0-12.0); Neutrophil % 69.6 % (36.0-66.0); Platelet Count 214 x10^3/uL (150-450); Red Blood Count 4.65 x10^6/uL (4.1-5.4); Red Cell Distribution Width 12.6 % (11.5-14.0); White Blood Count 7.2 x10^3/uL (4.0-10.5)
[2022-07-02] MEDS ORDERED: solu-MEDROL ONE (21:44)
[2022-07-02] MEDS ORDERED: Sterile H2O 10 ml IJ ONE (21:44)
[2022-07-02] MEDS ORDERED: HYDROCODONE-ACETAMIN 2.5-108/5 ML SOLUTION ONE (21:44)
[2022-07-02] MEDS ORDERED: Zofran 4 MG/2 ML VIAL ONE ×2 (21:44→22:58)
[2022-07-02] MEDS ORDERED: Sodium Chloride 0.9% 1000 ML 1,000 ML ONE ×2 (21:44→22:58)
[2022-07-02 21:45] LABS: Appearance SLIGHTLY CLOUDY (CLEAR); Bilirubin NEGATIVE (NEGATIVE); Dipstick done @ ? MAIN LAB; Glucose NEGATIVE (NEGATIVE); Ketones NEGATIVE (NEGATIVE); Nitrite NEGATIVE (NEGATIVE); Protein,Urine Dip NEGATIVE (Negative); RBC NEGATIVE Ery/ul (0-5); Specific Gravity 1.025 (1.005-1.025); Urobilinogen 0.2 mg/dL (0-1)
[2022-07-02 21:48] LABS: Epithelial Cells MODERATE /HPF (FEW); Mucus SLIGHT /HPF (NEGATIVE); Urine Cultured Indicated? NO; WBC 0-2 /HPF (0-5)
[2022-07-02 21:50] LABS: ALBUMIN 4.6 g/dL (3.5-5.0); ALKALINE PHOSPHATASE 89 U/L (38-126); ANION GAP 11.7 MEQ/L (5-15); BLOOD UREA NITROGEN 11 mg/dL (7-17); CHLORIDE 104 mmol/L (98-107); Calcium 9.2 mg/dL (8.4-10.2); Carbon Dioxide 26 mmol/L (22-30); Creatinine 1 0.64 mg/dL (0.52-1.04); EST GLOMERULAR FILTRATION RATE > 60.0 ML/MIN; Glucose 98 mg/dL (74-106); SGOT/AST 17 U/L (14-36); SGPT/ALT 15 U/L (0-35); SODIUM 138 mmol/L (137-145); Total Protein 7.4 g/dL (6.3-8.2)
[2022-07-02 22:36] VITALS: O2SAT 99
[2022-07-02 22:38] LABS: INFLUENZA A NEGATIVE (NEGATIVE); INFLUENZA B NEGATIVE (NEGATIVE); RESPIRATORY SYNCTIAL VIRUS NEGATIVE (Negative)
[2022-07-02 22:41] LABS: SARS-CoV-2 Xpert Express POSITIVE (NEGATIVE)
[2022-07-02] MEDS ORDERED: Zofran 4 MG/2 ML VIAL IV ONE (22:57)
[2022-07-02] MEDS ORDERED: PROTONIX 40 MG IV IV ONE ×2 (22:57→22:59)
[2022-07-03 00:24] VITALS: BP 130/80; PULSE 54
[2022-07-03] MEDS ORDERED: HYDROCODONE-ACETAMIN 2.5-108/5 ML SOLUTION ONE (00:25)
--- NOTE | 2022-07-03 09:17 | XRAY ---
Indication: Cough. Covid 19 infection. Comparison: April 19, 2020 Portable chest again demonstrates normal heart, lungs, and bony thorax.
== END 2022-07-03 00:39 | disposition home or self-care (01) ==
LOC: ED 20:48
DX: U07.1 COVID-19 (principal); B27.90 Infectious mononucleosis, unspecified without complication; R51.9 Headache, unspecified; M79.10 Myalgia, unspecified site; R05.9 Cough, unspecified; R11.10 Vomiting, unspecified; R43.8 Other disturbances of smell and taste; Z79.891 Long term (current) use of opiate analgesic; Z79.52 Long term (current) use of systemic steroids
CPT/HCPCS: 0241U; 36000; 36415; 71045; 80053; 81015; 81025; 83605; 85025; 86308; 87040; 87651; 96360; 96361; 96374; 96375; 96376; 99284; J2405; J2930; A9270-GY

== ENCOUNTER 2024-02-03 20:51 | Emergency (ER) | payer OTHER ==
[2024-02-03 20:56] VITALS: TEMP 97.8; O2SAT 100
--- NOTE | 2024-02-03 20:58 | ERPHSYRPT ---
- History of Present Illness Time Seen by Provider: 02/03/24 20:58 Source: patient Exam Limitations: no limitations Physician History: This is a 28-year-old white female patient who presented to the emergency department with palpitations that occurred today. She denies specific chest pain. Patient was concerned because she was recently diagnosed with mitral valve prolapse and is being scheduled to see an oxygen equipment aide. Patient does have a history of migraine headaches, hypothyroidism, degenerative joint disease, hypoglycemia, anxiety, bipolar disorder. She does not have any documented coronary artery disease. Patient denies vomiting or diarrhea. Timing/Duration: today Activities at Onset: none Severity of Pain-Max: none Severity of Pain-Current: none Nitro Today/Relief: no nitro taken today Aspirin Treatment Today: no aspirin today Associated Symptoms: other (Palpitations) Prior Chest Pain/Cardiac Workup: no prior chest pain, no prior cardiac workup Allergies/Adverse Reactions: diphenhydramine HCl [From Benadryl] Adverse Reaction (Mild, Verified 02/03/24 21:13) "I FEEL LIKE I AM ON CRACK" doxycycline Adverse Reaction (Mild, Verified 02/03/24 21:13) Nausea promethazine HCl [From Phenergan] Adverse Reaction (Mild, Verified 02/03/24 21:13) "I FEEL LIKE I AM ON CRACK" Home Medications: Cariprazine HCl [Vraylar] 1.5 mg PO DAILY 02/03/24 [History] Levothyroxine Sodium 50 Mcg [Synthroid 50 Mcg] 1 tab PO DAILY 02/03/24 [History] Metoprolol Succinate 25 mg Xl* [Toprol-Xl 25MG Tablets] 1 tab PO DAILY 02/03/24 [History] dilTIAZem HCL [Diltiazem 24Hr ER] 1 tab PO DAILY 02/03/24 [History] Hx Tetanus, Diphtheria Vaccination/Date Given: Yes Hx Influenza Vaccination/Date Given: Yes Hx Pneumococcal Vaccination/Date Given: No Travel Risk - International Travel Have you traveled outside of the country in past 3 weeks: No - Emerging Infectious Disease Are you exhibiting symptoms associated with any current EIDs: No - Review of Systems Constitutional: No Symptoms Eyes: No Symptoms Ears, Nose, & Throat: No Symptoms Respiratory: No Symptoms Cardiac: Palpitations Abdominal/Gastrointestinal: No Symptoms Genitourinary Symptoms: No Symptoms Musculoskeletal: No Symptoms Skin: No Symptoms Neurological: No Symptoms Psychological: No Symptoms Endocrine: No Symptoms Hematologic/Lymphatic: No Symptoms Immunological/Allergic: No Symptoms All Other Systems: Reviewed and Negative - Past Medical History Pertinent Past Medical History: Yes Neurological History: Migraines ENT History: No Pertinent History Cardiac History: No Pertinent History Respiratory History: No Pertinent History Endocrine Medical History: Hypoglycemia, Hypothyroidism Musculoskeletal History: Arthritis, Degenerative Disk Disease, Other GI Medical History: Other History: Other Psycho-Social History: Anxiety, Bipolar, Depression Female Reproductive Disorders: Endometriosis, Other Other Medical History: 2 prior vaginal deliveries, Kidney Stones, Endometriosis, PCOS, scoliosis to back - Past Surgical History Past Surgical History: Yes Neuro Surgical History: No Pertinent History Cardiac: No Pertinent History Respiratory: No Pertinent History Gastrointestinal: No Pertinent History Genitourinary: No Pertinent History Musculoskeletal: No Pertinent History Female Surgical History: Other Other Surgical History: D&C, LAP-endomet, ablation 04/27 Significant Family History: no pertinent family hx - Social History Smoking Status: Former smoker How long have you smoked: 12 years Exposure to second hand smoke: Yes Drug Use: none Patient Lives Alone: No - Nursing Vital Signs Nursing Vital Signs: Initial Vital Signs Temperature 97.8 F 02/03/24 20:55 Pulse Rate 88 02/03/24 20:55 Respiratory Rate 20 02/03/24 20:55 Blood Pressure 102/72 02/03/24 20:55 O2 Sat by Pulse Oximetry 100 02/03/24 20:55 Pain Scale Pain Intensity 1 - Physical Exam General Appearance: no apparent distress, alert, anxiety Eye Exam: PERRL/EOMI, eyes nml inspection Ears, Nose, Throat Exam: normal ENT inspection, moist mucous membranes Neck Exam: normal inspection, non-tender, supple, full range of motion Respiratory Exam: normal breath sounds, lungs clear, airway intact, No chest tenderness, No respiratory distress Cardiovascular Exam: regular rate/rhythm, normal heart sounds, normal peripheral pulses Gastrointestinal/Abdomen Exam: soft, normal bowel sounds, No tenderness Pelvic Exam: not done Rectal Exam: not done Back Exam: normal inspection, normal range of motion, No CVA tenderness, No vertebral tenderness Extremity Exam: normal inspection, normal range of motion, pelvis stable Neurologic Exam: alert, oriented x 3, cooperative, breaker engineer II-XII nml as tested, normal mood/affect, nml cerebellar function, nml station & gait, sensation nml Skin Exam: normal color, warm, dry Lymphatic Exam: No adenopathy SpO2 Interpretation: normal SpO2: 100 O2 Delivery: Room Air - Course Nursing assessment & vital signs reviewed: Yes EKG Interpreted by Me: RATE ([id number]), Sinus Rhythm, NORMAL AXIS, NORMAL INTERVALS, NORMAL QRS, Other (No acute ischemic changes on today's twelve-lead EKG. No changes on today's twelve-lead EKG when compared to twelve-lead EKG dated 01/21/2017.) Ordered Tests: Active Orders 24 hr Category Date Time Status Director New Product STAT Care 02/03/24 20:59 Active EKG-ER Only STAT Care 02/03/24 20:58 Active IV Insertion STAT Care 02/03/24 20:58 Active Pulse Oximetry (ED) STAT Care 02/03/24 20:58 Active AMYLASE Stat Lab 02/03/24 21:20 Completed CBC W DIFF Stat Lab 02/03/24 21:20 Completed CMP Stat Lab 02/03/24 21:20 Completed D-DIMER QUANTITATIVE Stat Lab 02/03/24 21:20 Completed HCG QUALITATIVE, SERUM Stat Lab 02/03/24 21:20 Completed MAGNESIUM Stat Lab 02/03/24 21:20 Completed TROPONIN Q4H Lab 02/03/24 21:20 Completed TROPONIN Q4H Lab 02/04/24 01:00 Ordered TROPONIN Q4H Lab 02/04/24 05:00 Ordered TSH, 3RD Generation Stat Lab 02/03/24 21:20 Completed UA W/RFX UR CULTURE Stat Lab 02/03/24 21:28 Completed Urine Triage Profile Stat Lab 02/03/24 21:28 Completed Lab/Rad Data: Laboratory Result Diagrams 02/03/24 21:20 02/03/24 21:20 Laboratory Results 02/03/24 02/03/24 02/03/24 Range/Units 21:28 21:28 21:20 WBC (4.0-10.5) x10^3/uL RBC (4.1-5.4) x10^6/uL Hgb (12.0-16.0) g/dL Hct (35-47) % MCV (78-100) fL MCH (26-32) pg MCHC (32-36) g/dL RDW (11.5-14.0) % Plt Count (150-450) x10^3/uL MPV (7.5-11.0) fL Gran % (36.0-66.0) % Immature Gran % (Auto) (0.00-0.4) % Nucleat RBC Rel Count (0.00-0.1) % Eos # (Auto) (0-0.5) x10^3/uL Immature Gran # (Auto) (0.00-0.03) x10^3u/L Absolute Lymphs (auto) (1.0-4.6) x10^3/uL Absolute Monos (auto) (0.0-1.3) x10^3/uL Absolute Nucleated RBC (0.00-0.01) x10^3u/L Lymphocytes % (24.0-44.0) % Monocytes % (0.0-12.0) % Eosinophils % (0.00-5.0) % Basophils % (0.0-0.4) % Absolute Granulocytes (1.4-6.9) x10^3/uL Basophils # (0-0.4) x10^3/uL D-Dimer (0.0-0.50) mg/L Sodium (135-145) mmol/L Potassium (3.5-5.1) mmol/L Chloride (98-107) mmol/L Carbon Dioxide (22-30) mmol/L Anion Gap (5-15) MEQ/L BUN (7-17) mg/dL Creatinine (0.52-1.04) mg/dL Estimated GFR ML/MIN Glucose (74-106) mg/dL Calcium (8.4-10.2) mg/dL Magnesium (1.6-2.3) mg/dL Total Bilirubin (0.2-1.3) mg/dL AST (14-36) U/L ALT (0-35) U/L Alkaline Phosphatase (38-126) U/L Troponin I (0.000-0.033) ng/mL Serum Total Protein (6.3-8.2) g/dL Albumin (3.5-5.0) g/dL Amylase (30-110) U/L Free T4 (0.78-2.19) ng/dL TSH 3rd Generation (0.470-4.680) mIU/L Serum HCG, Qual NEGATIVE (NEGATIVE) Urine Color Yellow (Yellow) Urine Appearance Clear (Clear) Urine pH 6.0 (4.6-8.0) Ur Specific [place] 1.025 (1.005-1.030) Urine Protein Negative (Negative) Urine Glucose (UA) Negative (Negative) mg/dL Urine Ketones Negative (Negative) Urine Blood Negative (Negative) Urine Nitrite Negative (Negative) Urine Bilirubin Negative (Negative) Urine Urobilinogen 1.0 A (0.2) mg/dL Ur Leukocyte Esterase Negative (Negative) U Hyaline Cast (Auto) NONE SEEN (0-2) /LPF Urine Microscopic RBC 3-5 (0-5) /HPF Urine Microscopic WBC 0-2 (0-5) /HPF Ur Epithelial Cells Few (None Seen) /HPF Urine Bacteria Rare A (None Seen) /HPF Urine Culture Reflexed NO (NO) Urine Opiates Level NEGATIVE (NEGATIVE) Ur Methadone NEGATIVE (NEGATIVE) Urine Barbiturates NEGATIVE (NEGATIVE) Ur Phencyclidine (PCP) NEGATIVE (NEGATIVE) Urine Amphetamine NEGATIVE (NEGATIVE) U Benzodiazepine Level NEGATIVE (NEGATIVE) Urine Cocaine NEGATIVE (NEGATIVE) Urine Marijuana (THC) POSITIVE A (NEGATIVE) 02/03/24 02/03/24 02/03/24 Range/Units 21:20 21:20 21:20 WBC (4.0-10.5) x10^3/uL RBC (4.1-5.4) x10^6/uL Hgb (12.0-16.0) g/dL Hct (35-47) % MCV (78-100) fL MCH (26-32) pg MCHC (32-36) g/dL RDW (11.5-14.0) % Plt Count (150-450) x10^3/uL MPV (7.5-11.0) fL Gran % (36.0-66.0) % Immature Gran % (Auto) (0.00-0.4) % Nucleat RBC Rel Count (0.00-0.1) % Eos # (Auto) (0-0.5) x10^3/uL Immature Gran # (Auto) (0.00-0.03) x10^3u/L Absolute Lymphs (auto) (1.0-4.6) x10^3/uL Absolute Monos (auto) (0.0-1.3) x10^3/uL Absolute Nucleated RBC (0.00-0.01) x10^3u/L Lymphocytes % (24.0-44.0) % Monocytes % (0.0-12.0) % Eosinophils % (0.00-5.0) % Basophils % (0.0-0.4) % Absolute Granulocytes (1.4-6.9) x10^3/uL Basophils # (0-0.4) x10^3/uL D-Dimer 0.32 (0.0-0.50) mg/L Sodium 139 (135-145) mmol/L Potassium 3.5 (3.5-5.1) mmol/L Chloride 106 (98-107) mmol/L Carbon Dioxide 26 (22-30) mmol/L Anion Gap 11.3 (5-15) MEQ/L BUN 10 (7-17) mg/dL Creatinine 0.60 (0.52-1.04) mg/dL Estimated GFR 125.3 ML/MIN Glucose 99 (74-106) mg/dL Calcium 9.2 (8.4-10.2) mg/dL Magnesium 1.9 (1.6-2.3) mg/dL Total Bilirubin 0.30 (0.2-1.3) mg/dL AST 20 (14-36) U/L ALT 16 (0-35) U/L Alkaline Phosphatase 62 (38-126) U/L Troponin I < 0.012 (0.000-0.033) ng/mL Serum Total Protein 7.7 (6.3-8.2) g/dL Albumin 4.4 (3.5-5.0) g/dL Amylase 113 H (30-110) U/L Free T4 (0.78-2.19) ng/dL TSH 3rd Generation 3.742 (0.470-4.680) mIU/L Serum HCG, Qual (NEGATIVE) Urine Color (Yellow) Urine Appearance (Clear) Urine pH (4.6-8.0) Ur Specific [place] (1.005-1.030) Urine Protein (Negative) Urine Glucose (UA) (Negative) mg/dL Urine Ketones (Negative) Urine Blood (Negative) Urine Nitrite (Negative) Urine Bilirubin (Negative) Urine Urobilinogen (0.2) mg/dL Ur Leukocyte Esterase (Negative) U Hyaline Cast (Auto) (0-2) /LPF Urine Microscopic RBC (0-5) /HPF Urine Microscopic WBC (0-5) /HPF Ur Epithelial Cells (None Seen) /HPF Urine Bacteria (None Seen) /HPF Urine Culture Reflexed (NO) Urine Opiates Level (NEGATIVE) Ur Methadone (NEGATIVE) Urine Barbiturates (NEGATIVE) Ur Phencyclidine (PCP) (NEGATIVE) Urine Amphetamine (NEGATIVE) U Benzodiazepine Level (NEGATIVE) Urine Cocaine (NEGATIVE) Urine Marijuana (THC) (NEGATIVE) 02/03/24 02/03/24 Range/Units 21:20 20:58 WBC 7.9 (4.0-10.5) x10^3/uL RBC 4.10 (4.1-5.4) x10^6/uL Hgb 13.0 (12.0-16.0) g/dL Hct 39.7 (35-47) % MCV 96.8 (78-100) fL MCH 31.7 (26-32) pg MCHC 32.7 (32-36) g/dL RDW 12.2 (11.5-14.0) % Plt Count 191 (150-450) x10^3/uL MPV 10.8 (7.5-11.0) fL Gran % 70.8 H (36.0-66.0) % Immature Gran % (Auto) 0.3 (0.00-0.4) % Nucleat RBC Rel Count 0.0 (0.00-0.1) % Eos # (Auto) 0.12 (0-0.5) x10^3/uL Immature Gran # (Auto) 0.02 (0.00-0.03) x10^3u/L Absolute Lymphs (auto) 1.57 (1.0-4.6) x10^3/uL Absolute Monos (auto) 0.55 (0.0-1.3) x10^3/uL Absolute Nucleated RBC 0.00 (0.00-0.01) x10^3u/L Lymphocytes % 19.9 L (24.0-44.0) % Monocytes % 7.0 (0.0-12.0) % Eosinophils % 1.5 (0.00-5.0) % Basophils % 0.5 (0.0-0.4) % Absolute Granulocytes 5.59 (1.4-6.9) x10^3/uL Basophils # 0.04 (0-0.4) x10^3/uL D-Dimer (0.0-0.50) mg/L Sodium (135-145) mmol/L Potassium (3.5-5.1) mmol/L Chloride (98-107) mmol/L Carbon Dioxide (22-30) mmol/L Anion Gap (5-15) MEQ/L BUN (7-17) mg/dL Creatinine (0.52-1.04) mg/dL Estimated GFR ML/MIN Glucose (74-106) mg/dL Calcium (8.4-10.2) mg/dL Magnesium (1.6-2.3) mg/dL Total Bilirubin (0.2-1.3) mg/dL AST (14-36) U/L ALT (0-35) U/L Alkaline Phosphatase (38-126) U/L Troponin I (0.000-0.033) ng/mL Serum Total Protein (6.3-8.2) g/dL Albumin (3.5-5.0) g/dL Amylase (30-110) U/L Free T4 0.78 (0.78-2.19) ng/dL TSH 3rd Generation (0.470-4.680) mIU/L Serum HCG, Qual (NEGATIVE) Urine Color (Yellow) Urine Appearance (Clear) Urine pH (4.6-8.0) Ur Specific [place] (1.005-1.030) Urine Protein (Negative) Urine Glucose (UA) (Negative) mg/dL Urine Ketones (Negative) Urine Blood (Negative) Urine Nitrite (Negative) Urine Bilirubin (Negative) Urine Urobilinogen (0.2) mg/dL Ur Leukocyte Esterase (Negative) U Hyaline Cast (Auto) (0-2) /LPF Urine Microscopic RBC (0-5) /HPF Urine Microscopic WBC (0-5) /HPF Ur Epithelial Cells (None Seen) /HPF Urine Bacteria (None Seen) /HPF Urine Culture Reflexed (NO) Urine Opiates Level (NEGATIVE) Ur Methadone (NEGATIVE) Urine Barbiturates (NEGATIVE) Ur Phencyclidine (PCP) (NEGATIVE) Urine Amphetamine (NEGATIVE) U Benzodiazepine Level (NEGATIVE) Urine Cocaine (NEGATIVE) Urine Marijuana (THC) (NEGATIVE) - Progress Progress: re-examined Air Movement: good Progress Note: 02/03/24 22:00 My medical decision making and the assignment of moderate level of complexity of this patient's medical issue today is based on review of the patient's past medical history, review of patient's medication list, review the patient drug allergy list, history present illness and physical findings on examination. The workup in this patient includes placement of intravenous line, twelve-lead EKG, urinalysis, test, urine drug screen, troponin level, D-dimer level, magnesium, CBC and CMP. Differential diagnosis includes anxiety, electrolyte abnormalities, myocardial infarction, pulmonary embolus, arrhythmia 02/03/24 22:29 I interpreted the patient's lab results. Based on her lab results, there are no acute emergent medical issues. Blood Culture(s) Obtained: No Antibiotics given: No Counseled pt/family regarding: lab results, diagnosis, need for follow-up Medical Desision Making - Diagnostic Testing Diagnostic test were ordered, analyzed, and reviewed by me: Yes - Risk of complications Minimal Risk: Minimal risk of morbidity - Departure Departure Disposition: Home Clinical Impression: Palpitations Condition: Stable Critical Care Time: No Referrals: MANDI TITUS FNP [Primary Care Provider] - Follow up/PCP as directed Additional Instructions: Take all your medications as prescribed. Follow-up with your primary care prov ider and apiculturist tomorrow, 02/04/2024 by phone to make arrangements for further evaluation and management.
[2024-02-03 21:26] LABS: Absolute Neutrophil Ct (ANC) 5.59 x10^3/uL (1.4-6.9); BASOPHIL % 0.5 % (0.0-0.4); Basophil (Absolute #) 0.04 x10^3/uL (0-0.4); Eosinophil % 1.5 % (0.00-5.0); Eosinophil (Absolute #) 0.12 x10^3/uL (0-0.5); Hematocrit 39.7 % (35-47); IMMATURE GRAN # 0.02 x10^3u/L (0.00-0.03); IMMATURE GRAN % 0.3 % (0.00-0.4); Lymphocyte (Absolute #) 1.57 x10^3/uL (1.0-4.6); Lymphocytes % 19.9 % (24.0-44.0); Mean Cell Volume 96.8 fL (78-100); Mean Corpuscular Hemoglobin 31.7 pg (26-32); Mean Corpuscular Hgb Concent. 32.7 g/dL (32-36); Mean Platelet Volume 10.8 fL (7.5-11.0); Monocyte (Absolute #) 0.55 x10^3/uL (0.0-1.3); Neutrophil % 70.8 % (36.0-66.0); Platelet Count 191 x10^3/uL (150-450); Red Cell Distribution Width 12.2 % (11.5-14.0); White Blood Count 7.9 x10^3/uL (4.0-10.5)
[2024-02-03 21:44] LABS: HCG SERUM TEST NEGATIVE (NEGATIVE)
[2024-02-03 22:05] LABS: Appearance Clear (Clear); Bacteria Rare /HPF (None Seen); Bilirubin Negative (Negative); Blood Negative (Negative); Epithelial Cells Few /HPF (None Seen); Glucose, Urine Negative (Negative); Hyaline Casts NONE SEEN /LPF (0-2); Ketones Negative (Negative); Leukocyte Esterase Negative (Negative); Nitrite Negative (Negative); Protein,Urine Dip Negative (Negative); Specific Gravity 1.025 (1.005-1.030); WBC 0-2 /HPF (0-5)
[2024-02-03 22:08] LABS: ADD URINE CULTURE? NO (NO)
[2024-02-03 22:11] VITALS: BP 97/63; PULSE 72; RESP 24
[2024-02-03 22:12] LABS: ALBUMIN 4.4 g/dL (3.5-5.0); ANION GAP 11.3 MEQ/L (5-15); BILIRUBIN,TOTAL 0.3 mg/dL (0.2-1.3); Calcium 9.2 mg/dL (8.4-10.2); Creatinine 1 0.6 mg/dL (0.52-1.04); EST GLOMERULAR FILTRATION RATE 125.3 ML/MIN; MAGNESIUM 1.9 mg/dL (1.6-2.3); Potassium 3.5 mmol/L (3.5-5.1); TSH, 3RD Generation 3.742 mIU/L (0.470-4.680); Total Protein 7.7 g/dL (6.3-8.2)
[2024-02-03 22:15] LABS: Amphetamine,Urine NEGATIVE (NEGATIVE); Barbiturate,Urine NEGATIVE (NEGATIVE); Benzodiazepine,Urine NEGATIVE (NEGATIVE); Cocaine,Urine NEGATIVE (NEGATIVE); Methadone,Urine NEGATIVE (NEGATIVE); Opiate,Urine NEGATIVE (NEGATIVE); PCP,Urine NEGATIVE (NEGATIVE); THC,Urine POSITIVE (NEGATIVE)
== END 2024-02-03 22:35 | disposition home or self-care (01) ==
LOC: ED 20:51
DX: R00.2 Palpitations (principal); I34.1 Nonrheumatic mitral (valve) prolapse; Z79.899 Other long term (current) drug therapy
CPT/HCPCS: 36000; 36415; 80053; 80307; 81001; 82150; 83735; 84439; 84443; 84484; 84703; 85025; 85379; 93005; 93041; 94760; 99284